=== PATIENT | female | born 1975 | race Caucasian/White ===

== ENCOUNTER → 2016-03-18 | Outpatient (CLI) | payer MEDICAID, MEDICARE ==
[~2016-03-18] MED LIST: AKWASOL OP; BACL10TA2 PO; FAMO1TAB25 PO; FLUT1LOT; GASTROGRAFIN SOLUTION 30ML (Q9963) As Ordered ONE; ISOVUE-370 76% 100ML VIAL (Q9967) As Ordered ONE; MEGE40TA PO; METH20TA29 PO; NORE0.353 PO; OXYC20TA2 PO; POLY33502 PO; RISP0.5T3 PO; SUMA100T2 PO; WELL100T PO; ZOLO100T PO
--- NOTE | 2016-03-18 14:51 | REP ---
Clinical: Abdominal pain with hematochezia. Technique: Axial contrast enhanced images from the lung bases to the pubic symphysis using oral and 100 ml Isovue 370 intravenous contrast material with precontrast and delayed images of the abdomen along with coronal and sagittal re-formations. Comparison: 05/30/2014. Findings: Lung bases clear. Visualized heart and pericardium normal. Liver, spleen, pancreas, gallbladder, bilateral adrenal glands and kidneys are normal. The enteric system is without obstruction or acute inflammatory process. Pelvis demonstrates normal bladder and age-appropriate uterus/adnexa. No pelvic fluid or ascites. No free air. No intraperitoneal or retroperitoneal adenopathy. Vasculature is normal. Surrounding musculoskeletal structures are intact. Impression: Normal pre and postcontrast CT of the abdomen and pelvis. Signed by Choco St MD 03/18/2016 02:43 P
== END ==
LOC: M RAD 12:36
PROVIDERS: ATTEND Internal Medicine Infectious Disease
DX: R10.30 Lower abdominal pain, unspecified (principal); K62.5 Hemorrhage of anus and rectum
CPT/HCPCS: 74178; Q9963; Q9967

== ENCOUNTER → 2016-04-01 | Outpatient (REF) | payer MEDICARE, MEDICAID ==
[~2016-04-01] MED LIST changes: -GASTROGRAFIN SOLUTION 30ML (Q9963) As Ordered ONE; -ISOVUE-370 76% 100ML VIAL (Q9967) As Ordered ONE
== END ==
LOC: M SFHCPLAZ 12:21
PROVIDERS: ATTEND Internal Medicine Infectious Disease
DX: B00.9 Herpesviral infection, unspecified (principal)
CPT/HCPCS: 36415; 81001; 87529; G0463

== ENCOUNTER → 2016-04-11 | Outpatient (REF) | payer MEDICARE, MEDICAID | LOC: M SFHCPLAZ 12:22 | PROVIDERS: ATTEND Internal Medicine Infectious Disease | DX: R30.0 Dysuria (principal) ==

== ENCOUNTER → 2016-05-08 | Outpatient (REF) | payer MEDICARE, MEDICAID ==
[~2016-05-08] MED LIST changes: +CLIN1CAP5 PO
== END ==
LOC: M SFHCPLAZ 16:41
PROVIDERS: ATTEND Internal Medicine Infectious Disease
DX: B00.9 Herpesviral infection, unspecified (principal)
CPT/HCPCS: 87070; 87077; 87186; 87205; 87529; G0463

== ENCOUNTER 2016-05-25 05:45 | Emergency (ER) | payer MEDICARE, MEDICAID ==
[~2016-05-25] VITALS: Ht 157.5 cm; Wt 90.7 kg
[~2016-05-25 05:45] MED LIST changes: -CLIN1CAP5 PO
[2016-05-25 07:17] LABS: BASO % 0.4 % (0.0-1.0); EOS # 0.2 K/mm3 (0.0-0.50); EOS % 2.9 % (0.0-3.0); LARGE UNSTAINED CELL # 0.1 K/mm3 (0.0-0.4); LARGE UNSTAINED CELL % 1.5 % (0.0-4.0); LYMPH # 2.7 K/mm3 (1.5-4.5); LYMPH % 33.1 % (24.0-44.0); MEAN CORPUSCULAR HEMOGLOBIN 29.4 pg (27.0-33.0); MEAN CORPUSCULAR HGB CONC 33.4 g/dl (32.0-36.5); MEAN CORPUSCULAR VOLUME 88.1 fl (80.0-96.0); MONO # 0.4 K/mm3 (0.0-0.8); MONO % 4.7 % (0.0-5.0); NEUTROPHILS # 4.5 K/mm3 (1.8-7.7); NEUTROPHILS % 57.4 % (36.0-66.0); PLATELET COUNT, AUTOMATED 277 k/mm3 (150-450); RED CELL DISTRIBUTION WIDTH 13.3 % (11.5-14.5); WHITE BLOOD COUNT 7.8 K/mm3 (4.0-10.0)
[2016-05-25 07:41] LABS: ANION GAP 10 MEQ/L (8-16); BLOOD UREA NITROGEN 9 MG/DL (7-18); CALCIUM LEVEL 8.3 MG/DL (8.5-10.1); CARBON DIOXIDE LEVEL 24 MEQ/L (21-32); CHLORIDE LEVEL 110 MEQ/L (98-107); CREATININE FOR GFR 1.04 MG/DL (0.55-1.02); GLOMERULAR FILTRATION RATE > 60.0 (>58); GLUCOSE, FASTING 100 MG/DL (70-105); SODIUM LEVEL 144 MEQ/L (136-145)
[2016-05-25 08:13] LABS: METHADONE URINE NEGATIVE (NEGATIVE)
[2016-05-25] MEDS ORDERED: POTASSIUM CHLORIDE 10 MEQ SR TABLET PO ONE ×2 (11:00→11:45)
[2016-05-25] MEDS ORDERED: CLIN1CAP5 PO (11:41)
[2016-05-25 11:47] LABS: T UPTAKE 33 % (30-39)
[2016-05-25 12:10] VITALS: BP 128/82
--- NOTE | 2016-05-25 20:29 | ECGEPIP ---
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
== END 2016-05-25 12:12 | disposition home or self-care (01) ==
LOC: M ED 08:23
DX: R00.2 Palpitations (principal); E87.6 Hypokalemia

== ENCOUNTER 2016-05-29 10:25 | Emergency (ER) | payer MEDICARE, MEDICAID ==
[~2016-05-29] VITALS: Ht 157.5 cm; Wt 91.6 kg
[~2016-05-29 10:25] MED LIST changes: +CLIN1CAP5 PO
--- NOTE | 2016-05-29 11:42 | REP ---
Left lower extremity Duplex Doppler venous ultrasound: Real time compression and duplex Doppler interrogation of the left lower extremity deep venous system is performed. The left common femoral, superficial femoral and popliteal veins are fully compressible with transducer pressure and demonstrate normal spontaneous and phasic flow, without evidence of deep venous thrombosis. Impression: No evidence of deep venous thrombosis of the left lower extremity femoral popliteal venous system. Signed by Musa Hawk MD 05/29/2016 11:33 A
[2016-05-29 13:00] VITALS: BP 140/73
== END 2016-05-29 13:00 | disposition home or self-care (01) ==
LOC: M ED 11:55
DX: M79.662 Pain in left lower leg (principal); J45.909 Unspecified asthma, uncomplicated; F32.9 Major depressive disorder, single episode, unspecified; Z88.6 Allergy status to analgesic agent; Z91.040 Latex allergy status; Z88.2 Allergy status to sulfonamides; Z79.899 Other long term (current) drug therapy

== ENCOUNTER 2016-05-29 21:12 | Emergency (ER) | payer MEDICARE, MEDICAID ==
[~2016-05-29] VITALS: Ht 157.5 cm; Wt 92.5 kg
[~2016-05-29 21:12] MED LIST changes: -MEGE40TA PO; +MEGE40TA18 PO
[2016-05-29] MEDS ORDERED: NS 1,000 ML IV SCH (22:26)
[2016-05-29] MEDS ORDERED: METOCLOPRAMIDE INJ 10MG/2ML VIAL (J2765) IV ONE (22:30)
--- NOTE | 2016-05-29 23:00 | REPUSA ---
CT of the head Clinical history: Headache. Technique: Multiple axial CT images were obtained through the head without administration of contrast . Findings: The ventricles and sulci are symmetric bilaterally. There is no evidence of acute hemorrhag e or infarct. There is no midline shift, mass effect, or extra-axial fluid collection. The osseous st ructures are unremarkable. The visualized paranasal sinuses and mastoid air cells are clear. Impression: Negative study.
[2016-05-29 23:02] LABS: BASO % 0.4 % (0.0-1.0); EOS # 0.2 K/mm3 (0.0-0.50); EOS % 2.1 % (0.0-3.0); LARGE UNSTAINED CELL # 0.1 K/mm3 (0.0-0.4); LARGE UNSTAINED CELL % 1.6 % (0.0-4.0); LYMPH # 3.4 K/mm3 (1.5-4.5); LYMPH % 36.5 % (24.0-44.0); MEAN CORPUSCULAR HEMOGLOBIN 29.5 pg (27.0-33.0); MEAN CORPUSCULAR HGB CONC 33.5 g/dl (32.0-36.5); MEAN CORPUSCULAR VOLUME 87.9 fl (80.0-96.0); MONO # 0.4 K/mm3 (0.0-0.8); MONO % 4.4 % (0.0-5.0); NEUTROPHILS # 4.8 K/mm3 (1.8-7.7); PLATELET COUNT, AUTOMATED 278 k/mm3 (150-450); RED CELL DISTRIBUTION WIDTH 13.2 % (11.5-14.5); WHITE BLOOD COUNT 8.8 K/mm3 (4.0-10.0)
[2016-05-29 23:32] LABS: ANION GAP 7 MEQ/L (8-16); BLOOD UREA NITROGEN 10 MG/DL (7-18); CALCIUM LEVEL 8.9 MG/DL (8.5-10.1); CARBON DIOXIDE LEVEL 27 MEQ/L (21-32); CHLORIDE LEVEL 107 MEQ/L (98-107); CREATININE FOR GFR 1.01 MG/DL (0.55-1.02); FREE T4 0.76 NG/DL (0.76-1.46); GLOMERULAR FILTRATION RATE > 60.0 (>58); GLUCOSE, FASTING 123 MG/DL (70-105); MAGNESIUM LEVEL 2.4 MG/DL (1.8-2.4); PHOSPHORUS LEVEL 2.9 MG/DL (2.5-4.9); POTASSIUM SERUM 3.5 MEQ/L (3.5-5.1); SODIUM LEVEL 141 MEQ/L (136-145)
[2016-05-30 00:22] VITALS: BP 111/61
== END 2016-05-30 00:40 | disposition home or self-care (01) ==
LOC: M ED 22:44
DX: R20.2 Paresthesia of skin (principal); M79.662 Pain in left lower leg; Z87.891 Personal history of nicotine dependence; L51.1 Stevens-Johnson syndrome; Z88.6 Allergy status to analgesic agent; Z88.2 Allergy status to sulfonamides; Z88.8 Allergy status to other drugs, medicaments and biological substances; Z79.899 Other long term (current) drug therapy
CPT/HCPCS: 36415; 70450; 80048; 83735; 84100; 84439; 84443; 85025; 93041; 93971; 94760; 96361; 96374; 99282; 99284; G0463; J2765

== ENCOUNTER 2016-06-02 18:17 | Emergency (ER) | payer MEDICARE, MEDICAID ==
[~2016-06-02] VITALS: Ht 157.5 cm; Wt 88.5 kg
[2016-06-02] MEDS ORDERED: ASPIRIN 81 MG CHEW TABLET PO ONE (19:30)
[2016-06-02] MEDS: NITROGLYCERIN 0.4 MG SUBL TABLET SL PRN ×3 (19:44→19:55)
[2016-06-02 19:55] VITALS: BP 120/57
[2016-06-03 01:11] VITALS: BP 93/59
--- NOTE | 2016-06-03 07:58 | REP ---
Clinical: Chest pain . Comparison: 01/29/2016 . Technique: PA and lateral. Findings: The mediastinum and cardiac silhouette are normal. The lung mir are clear and without acute consolidation, effusion, or pneumothorax. The skeletal structures are intact and normal. Impression: 1. No acute cardiopulmonary process. Signed by Choco St MD 06/03/2016 07:49 A
--- NOTE | 2016-06-03 10:26 | ECGEPIP ---
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
--- NOTE | 2016-06-03 10:33 | ECGEPIP ---
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
== END 2016-06-03 01:20 | disposition home or self-care (01) ==
LOC: M ED 19:39
DX: R07.89 Other chest pain (principal); Z79.899 Other long term (current) drug therapy; Z88.6 Allergy status to analgesic agent; Z91.040 Latex allergy status; Z88.2 Allergy status to sulfonamides

== ENCOUNTER → 2016-06-05 | Outpatient (REF) | payer MEDICARE, MEDICAID | LOC: M LAB REF 12:53 | PROVIDERS: ATTEND Nurse Practitioner Family | DX: L08.89 Other specified local infections of the skin and subcutaneous tissue (principal) ==

== ENCOUNTER 2016-07-02 22:49 | Emergency (ER) | payer MEDICARE, MEDICAID ==
[~2016-07-02] VITALS: Ht 157.5 cm; Wt 93.0 kg
[2016-07-03 07:37] VITALS: BP 126/88
--- NOTE | 2016-07-03 07:40 | REPUSA ---
CLINICAL HISTORY: Edema. COMMENTS: Real time sonography with duplex doppler of the right lower extremity was performed with attention to the major deep venous structures. Evaluation reveals the right common femoral, superficial femoral and popliteal veins to be completely compressible without intraluminal thrombus. There is normal spontaneous phasic flow and augmentation . The greater saphenous/common femoral vein junction is patent. No reflux was noted. IMPRESSION: No evidence of DVT in right lower extremity. Thank you for your kind referral of this patient.
[2016-07-03] MEDS ORDERED: CLIN1CAP5 PO ×2 (08:01→08:25)
[2016-07-03] MEDS: CLINDAMYCIN 150 MG CAP PO ONE (08:09)
== END 2016-07-03 08:25 | disposition home or self-care (01) ==
LOC: M ED 23:53
DX: M79.661 Pain in right lower leg (principal); J01.90 Acute sinusitis, unspecified; Z91.040 Latex allergy status; Z88.6 Allergy status to analgesic agent; Z88.2 Allergy status to sulfonamides; Z79.899 Other long term (current) drug therapy; J45.909 Unspecified asthma, uncomplicated; N30.10 Interstitial cystitis (chronic) without hematuria; F41.9 Anxiety disorder, unspecified; F32.9 Major depressive disorder, single episode, unspecified

== ENCOUNTER → 2016-07-16 | Outpatient (REF) | payer MEDICARE ==
[2016-07-16 14:05] LABS: BASO % 0.5 % (0.0-1.0); EOS # 0.2 K/mm3 (0.0-0.50); EOS % 2.1 % (0.0-3.0); LARGE UNSTAINED CELL # 0.2 K/mm3 (0.0-0.4); LARGE UNSTAINED CELL % 2.1 % (0.0-4.0); LYMPH # 2.7 K/mm3 (1.5-4.5); LYMPH % 31.4 % (24.0-44.0); MEAN CORPUSCULAR HGB CONC 33.9 g/dl (32.0-36.5); MEAN CORPUSCULAR VOLUME 88.5 fl (80.0-96.0); MONO # 0.4 K/mm3 (0.0-0.8); MONO % 4.8 % (0.0-5.0); NEUTROPHILS # 4.7 K/mm3 (1.8-7.7); NEUTROPHILS % 59.2 % (36.0-66.0); PLATELET COUNT, AUTOMATED 276 k/mm3 (150-450); RED CELL DISTRIBUTION WIDTH 13.5 % (11.5-14.5)
[2016-07-16 14:50] LABS: ERYTHROCYTE SEDIMENTATION RATE 8 mm/hr (0-20)
== END ==
LOC: M SFHCPLAZ 12:45
PROVIDERS: ATTEND Family Medicine
DX: J02.9 Acute pharyngitis, unspecified (principal)

== ENCOUNTER 2016-07-28 18:37 | Emergency (ER) | payer MEDICARE ==
[~2016-07-28] VITALS: Ht 157.5 cm; Wt 88.5 kg
[2016-07-28] MEDS ORDERED: CLIN1LOT (18:59)
[2016-07-28] MEDS ORDERED: RISP1TAB3 (18:59)
[2016-07-28] MEDS ORDERED: BUPR300T34 (18:59)
[2016-07-28] MEDS ORDERED: SERT-138 (18:59)
[2016-07-28] MEDS ORDERED: CYCLOBENZAPRINE 10 MG TAB PO ONE (21:45)
[2016-07-28] MEDS ORDERED: SOMA350T PO (21:46)
[2016-07-28 21:57] VITALS: BP 129/79
== END 2016-07-28 21:59 | disposition home or self-care (01) ==
LOC: M ED 20:07
DX: M62.838 Other muscle spasm (principal); L51.1 Stevens-Johnson syndrome; Z79.899 Other long term (current) drug therapy; Z88.2 Allergy status to sulfonamides; Z88.6 Allergy status to analgesic agent; Z91.040 Latex allergy status
CPT/HCPCS: 99282; G0463

== ENCOUNTER → 2016-07-30 | Outpatient (REF) | payer MEDICARE, MEDICAID ==
[~2016-07-30] MED LIST changes: +ALBU20IN; +ALBU83IN INH; +ASTE0.15; +BUPR300T34; +CLIN150C14 PO; -CLIN1CAP5 PO; +CLIN1LOT; +DIVA500T3 PO; +FLOV50AE PO; +FLUT1SPR2; +IRON65TA PO; +LIDO1PAD EXT; +LINZ290C PO; +MEGE20TA3 PO; +MIRA3350 PO; +MONT10TA2 PO; +MUPI2OI EXT; +PROM12.55 PO; +RELP20TA PO; +RISP1TAB3 PO; +SERT-138; +SOMA350T PO; +VALT1TAB PO; +ZITHTAB PO
== END ==
LOC: M SFHCPLAZ 13:12
PROVIDERS: ATTEND Family Medicine
DX: Z13.1 Encounter for screening for diabetes mellitus (principal); Z79.899 Other long term (current) drug therapy
CPT/HCPCS: 36415; 83036; G0463

== ENCOUNTER 2016-07-31 16:11 | Emergency (ER) | payer MEDICAID, MEDICARE ==
[~2016-07-31] VITALS: Ht 157.5 cm; Wt 90.7 kg
[~2016-07-31 16:11] MED LIST changes: -ALBU20IN; -ALBU83IN INH; -ASTE0.15; -CLIN150C14 PO; +CLIN1CAP5 PO; -DIVA500T3 PO; -FLOV50AE PO; -FLUT1SPR2; -IRON65TA PO; -LIDO1PAD EXT; -LINZ290C PO; -MEGE20TA3 PO; -MIRA3350 PO; -MONT10TA2 PO; -MUPI2OI EXT; -PROM12.55 PO; -RELP20TA PO; -VALT1TAB PO; -ZITHTAB PO
[2016-07-31] MEDS ORDERED: VALT1TAB PO (16:21)
[2016-07-31] MEDS ORDERED: MEGE20TA PO (16:23)
[2016-07-31] MEDS ORDERED: METOCLOPRAMIDE INJ 10MG/2ML VIAL (J2765) IV ONE (17:30)
[2016-07-31] MEDS ORDERED: NS 1,000 ML IV ONE (17:30)
--- NOTE | 2016-07-31 17:41 | REP ---
Clinical: Headaches . Comparison: 05/29/2016 . Findings: The ventricles, sulci, and cisterns are normal in position and appearance. Hawk-white differentiation is maintained. No acute intracranial hemorrhage, mass/mass effect, pathology or trauma/injury. No evidence for acute infarction. No extra-axial fluid collection. Calvarium is intact. Paranasal sinuses and mastoid air cells are clear. Impression: Normal noncontrast head CT. No evidence for acute intracranial pathology or trauma/injury. Signed by Choco St MD 07/31/2016 05:32 P
[2016-07-31] MEDS ORDERED: ZITHTAB PO (17:54)
[2016-07-31] MEDS ORDERED: AZITHROMYCIN 250 MG TAB PO ONE (18:00)
[2016-07-31 18:10] VITALS: BP 113/65
[2016-08-25] MEDS ORDERED: OXYC20TA2 PO (09:27)
[2016-08-25] MEDS ORDERED: MUPI2OI EXT (09:27)
[2016-08-25] MEDS ORDERED: MONT10TA2 PO (09:27)
[2016-08-25] MEDS ORDERED: LINZ290C PO (09:27)
[2016-08-25] MEDS ORDERED: ASTE0.15 (09:27)
[2016-08-25] MEDS ORDERED: RELP20TA PO (09:27)
[2016-08-25] MEDS ORDERED: DIVA500T3 PO (09:27)
[2016-08-25] MEDS ORDERED: MIRA3350 PO (09:27)
[2016-08-25] MEDS ORDERED: MEGE40TA18 PO (09:27)
[2016-08-25] MEDS ORDERED: LIDO1PAD EXT (09:27)
[2016-08-25] MEDS ORDERED: ALBU20IN (09:27)
[2016-08-25] MEDS ORDERED: IRON65TA PO (09:27)
[2016-08-25] MEDS ORDERED: METH20TA29 PO (09:27)
[2016-08-25] MEDS ORDERED: PROM125TA PO (09:27)
[2016-08-25] MEDS ORDERED: FLUT1SPR2 (09:27)
[2016-08-25] MEDS ORDERED: ALBU83IN INH (09:27)
[2016-08-25] MEDS ORDERED: FLOV50AE PO (09:27)
== END 2016-07-31 18:11 | disposition home or self-care (01) ==
LOC: M ED 17:08
DX: J01.90 Acute sinusitis, unspecified (principal); Z87.891 Personal history of nicotine dependence; Z79.899 Other long term (current) drug therapy; Z88.0 Allergy status to penicillin; Z88.6 Allergy status to analgesic agent; Z91.040 Latex allergy status; Z88.2 Allergy status to sulfonamides; Z88.8 Allergy status to other drugs, medicaments and biological substances
CPT/HCPCS: 70450; 96361; 96374; 99283; G0463; J2765

== ENCOUNTER → 2016-08-29 | Outpatient (CLI) | payer MEDICARE ==
[~2016-08-29] VITALS: Ht 157.5 cm; Wt 90.7 kg
[~2016-08-29] MED LIST changes: +ALBU20IN; +ALBU83IN INH; +ASTE0.15; +DIVA500T3 PO; +FLOV50AE PO; +FLUT1SPR2; +IRON65TA PO; +LIDO1PAD EXT; +LIDOCAINE 2% INJ 100 MG/5 ML SDV (FOR ANES.) As Ordered ONE; +LINZ290C PO; +MEGE20TA PO; +MIRA3350 PO; +MONT10TA2 PO; +MUPI2OI EXT; +NS 1,000 ML IV ONE; +PROM125TA PO; +PROPOFOL 200 MG/20 ML VIAL As Ordered ONE; +RELP20TA PO; +VALT1TAB PO; +ZITHTAB PO; +fentaNYL 100 MCG/2 ML INJECTION (J3010) As Ordered ONE
--- NOTE | 2016-08-29 15:01 | ROOR ---
Patient Name: Elen Courtney Procedure Date: 08/29/2016 2:47 PM Date of : 1975 Age: 41 Room: [facility] Gender: Female Note Status: Finalized Procedure: Upper GI endoscopy Indications: Dyspepsia, Heartburn Providers: Naga JANE MD Referring MD: Cathy Calderon [facility] Requesting Provider: Medicines: Monitored Anesthesia Care Complications: No immediate complications. Procedure: Pre-Anesthesia Assessment: - The heart rate, respiratory rate, oxygen saturations, blood pressure, adequacy of pulmonary ventilation, and response to care were monitored throughout the procedure. The Endoscope was introduced through the mouth, and advanced to the second part of duodenum. The upper GI endoscopy was accomplished without difficulty. The patient tolerated the procedure well. Findings: Esophagitis was found in the lower third of the esophagus. Biopsies were taken with a cold forceps for histology. There were esophageal mucosal changes suspicious for short-segment Smith's esophagus present in the lower third of the esophagus. The maximum longitudinal extent of these mucosal changes was 2 cm in length. Mucosa was biopsied with a cold forceps for histology randomly. Mild inflammation was found in the gastric antrum. Biopsies were taken with a cold forceps for histology. The examined duodenum was normal. Impression: - Esophagitis and esophageal mucosal changes suspicious for short-segment Smith's esophagus. Biopsied. - Mild Gastritis. Biopsied. - Normal examined duodenum. Recommendation: - Use Prilosec (omeprazole) 40 mg PO BID. - Telephone endoscopist for pathology results in 2 weeks. - (the script was sent to your pharmacy on file) Naga Jane MD Naga JANE MD 08/29/2016 3:01:04 PM This report has been signed electronically. Number of Addenda: 0 Note Initiated On: 08/29/2016 2:47 PM Estimated Blood Loss: Estimated blood loss: none.
--- NOTE | 2016-08-29 15:19 | ROOR ---
Patient Name: Elen Courtney Procedure Date: 08/29/2016 2:48 PM Date of : 1975 Age: 41 Room: [id number] Gender: Female Note Status: Finalized Procedure: Colonoscopy Indications: Constipation Providers: Naga JANE MD Referring MD: Cathy Calderon [facility] Requesting Provider: Medicines: Monitored Anesthesia Care Complications: No immediate complications. Procedure: Pre-Anesthesia Assessment: - The heart rate, respiratory rate, oxygen saturations, blood pressure, adequacy of pulmonary ventilation, and response to care were monitored throughout the procedure. The Colonoscope was introduced through the anus and advanced to 5 cm into the ileum. The colonoscopy was performed without difficulty. The patient tolerated the procedure well. The quality of the bowel preparation was poor. Findings: The perianal and digital rectal examinations were normal. The colon (entire examined portion) appeared normal. The terminal ileum appeared normal. Impression: - Preparation of the colon was poor, required large lavage for adequate visualisation. - The entire examined colon is normal. - The examined portion of the ileum was normal. - No specimens collected. Recommendation: - stop Yandel, start Amitiza. - (the script was sent to your pharmacy on file) Naga Jane MD Naga JANE MD 08/29/2016 3:19:22 PM This report has been signed electronically. Number of Addenda: 0 Note Initiated On: 08/29/2016 2:48 PM Estimated Blood Loss: Estimated blood loss: none.
[2016-08-29 15:44] VITALS: BP 139/83
== END | disposition home or self-care (01) ==
LOC: M OPP 12:40
PROVIDERS: ATTEND Internal Medicine Gastroenterology
DX: K59.00 Constipation, unspecified (principal); K30 Functional dyspepsia; K29.70 Gastritis, unspecified, without bleeding; K20.9 Esophagitis, unspecified; K22.8 Other specified diseases of esophagus; K21.9 Gastro-esophageal reflux disease without esophagitis; R01.1 Cardiac murmur, unspecified; R00.2 Palpitations; R07.89 Other chest pain; I10 Essential (primary) hypertension; R23.3 Spontaneous ecchymoses; M19.90 Unspecified osteoarthritis, unspecified site; M54.2 Cervicalgia; B00.9 Herpesviral infection, unspecified; F41.9 Anxiety disorder, unspecified; F32.9 Major depressive disorder, single episode, unspecified; G43.909 Migraine, unspecified, not intractable, without status migrainosus; L51.1 Stevens-Johnson syndrome; J45.909 Unspecified asthma, uncomplicated; G47.30 Sleep apnea, unspecified; R06.83 Snoring; R06.02 Shortness of breath; R32 Unspecified urinary incontinence; N13.5 Crossing vessel and stricture of ureter without hydronephrosis; Z87.891 Personal history of nicotine dependence; Z88.0 Allergy status to penicillin; Z88.8 Allergy status to other drugs, medicaments and biological substances; Z91.040 Latex allergy status; Z88.2 Allergy status to sulfonamides; Z79.899 Other long term (current) drug therapy
CPT/HCPCS: 43239; 45378; 88305; J3010

== ENCOUNTER → 2017-01-12 | Outpatient (REF) | payer MEDICARE ==
[~2017-01-12] MED LIST changes: +CLIN150C14 PO; -CLIN1CAP5 PO; -LIDOCAINE 2% INJ 100 MG/5 ML SDV (FOR ANES.) As Ordered ONE; -MEGE20TA PO; +MEGE20TA3 PO; -NS 1,000 ML IV ONE; +PROM12.55 PO; -PROM125TA PO; -PROPOFOL 200 MG/20 ML VIAL As Ordered ONE; -fentaNYL 100 MCG/2 ML INJECTION (J3010) As Ordered ONE
[2017-01-12 16:09] LABS: BASO % 0.4 % (0.0-1.0); EOS # 0.1 10^3/uL (0.0-0.50); EOS % 0.7 % (0.0-3.0); IMMATURE GRANULOCYTE % 0.1 % (0-0); LYMPH # 3.6 10^3/uL (1.5-4.5); LYMPH % 44.5 % (24.0-44.0); MEAN CORPUSCULAR HEMOGLOBIN 30.7 pg (27.0-33.0); MEAN CORPUSCULAR HGB CONC 34.2 g/dl (32.0-36.5); MEAN CORPUSCULAR VOLUME 89.8 fl (80.0-96.0); MONO # 0.5 10^3/uL (0.0-0.8); MONO % 6.1 % (0.0-5.0); NEUTROPHILS # 3.9 10^3/uL (1.8-7.7); NEUTROPHILS % 48.2 % (36.0-66.0); PLATELET COUNT, AUTOMATED 355 10^3/uL (150-450); RED CELL DISTRIBUTION WIDTH 13.1 % (11.5-14.5)
[2017-01-12 16:33] LABS: IMMUNOGLOBULIN G 919 MG/DL (681-1648); IMMUNOGLOBULIN M 113 MG/DL (40-230)
[2017-01-12 17:15] LABS: ERYTHROCYTE SEDIMENTATION RATE 4 mm/hr (0-20)
[2017-01-16 08:07] LABS: IgG SERUM (part of Subclasses) 838 mg/dL (700-1600); IgG Subclass 1 445 mg/dL (248-810); IgG Subclass 2 286 mg/dL (130-555); IgG Subclass 3 33 mg/dL (15-102); IgG Subclass 4 49 mg/dL (2-96)
== END ==
LOC: M SFHCPLAZ 13:04
PROVIDERS: ATTEND Internal Medicine Infectious Disease
DX: D80.3 Selective deficiency of immunoglobulin G [IgG] subclasses (principal); B00.9 Herpesviral infection, unspecified
CPT/HCPCS: 36415; 82784; 82787; 85025; 85652; 86140; G0463

== ENCOUNTER → 2017-01-26 | Outpatient (REF) | payer MEDICARE ==
[2017-01-26 16:06] LABS: CALCIUM LEVEL 9.6 MG/DL (8.5-10.1); CREATININE FOR GFR 1.08 MG/DL (0.55-1.02); GLOMERULAR FILTRATION RATE 59.5 (>58); POTASSIUM SERUM 2.9 MEQ/L (3.5-5.1)
== END ==
LOC: M SFHCPLAZ 12:48
PROVIDERS: ATTEND Family Medicine
DX: I10 Essential (primary) hypertension (principal)

== ENCOUNTER → 2017-01-30 | Outpatient (CLI) | payer MEDICARE, MEDICAID ==
[2017-01-30 11:11] LABS: ANION GAP 7 MEQ/L (8-16); BLOOD UREA NITROGEN 12 MG/DL (7-18); CALCIUM LEVEL 9.1 MG/DL (8.5-10.1); CARBON DIOXIDE LEVEL 26 MEQ/L (21-32); CHLORIDE LEVEL 106 MEQ/L (98-107); CREATININE FOR GFR 1.02 MG/DL (0.55-1.02); GLOMERULAR FILTRATION RATE > 60.0 (>58); GLUCOSE, FASTING 88 MG/DL (70-105); POTASSIUM SERUM 4.3 MEQ/L (3.5-5.1); SODIUM LEVEL 139 MEQ/L (136-145)
== END ==
LOC: M LAB 10:00
PROVIDERS: ATTEND Family Medicine
DX: E87.6 Hypokalemia (principal)

== ENCOUNTER → 2017-04-23 | Outpatient (CLI) | payer MEDICARE, MEDICAID | LOC: M RAD 13:01 | DX: H93.A3 Pulsatile tinnitus, bilateral (principal) | CPT/HCPCS: 70480 ==

== ENCOUNTER → 2017-08-06 | Outpatient (REF) | payer MEDICARE, MEDICAID | LOC: M SFHCPLAZ 15:20 | DX: F45.8 Other somatoform disorders (principal); N32.9 Bladder disorder, unspecified; Z79.899 Other long term (current) drug therapy | CPT/HCPCS: 84443 ==

== ENCOUNTER 2017-09-03 10:40 | Day surgery (SDC) | payer MEDICARE, MEDICAID ==
[2017-09-03] MEDS: NS 1,000 ML IV (11:00)
[2017-09-03] MEDS ORDERED: PROPOFOL 200 MG/20 ML VIAL As Ordered ×4 (12:35)
[2017-09-03] MEDS ORDERED: LIDOCAINE 2% INJ 100 MG/5 ML SDV (FOR ANES.) As Ordered (12:35)
== END 2017-09-03 13:11 | disposition home or self-care (01) ==
LOC: M OPP 10:40
DX: D12.2 Benign neoplasm of ascending colon (principal); K64.8 Other hemorrhoids; K58.1 Irritable bowel syndrome with constipation; K59.00 Constipation, unspecified; I10 Essential (primary) hypertension; R23.3 Spontaneous ecchymoses; J45.909 Unspecified asthma, uncomplicated; R06.83 Snoring; F32.9 Major depressive disorder, single episode, unspecified; M32.9 Systemic lupus erythematosus, unspecified; L51.1 Stevens-Johnson syndrome; Z79.82 Long term (current) use of aspirin; Z79.899 Other long term (current) drug therapy; Z88.8 Allergy status to other drugs, medicaments and biological substances
CPT/HCPCS: 45385

== ENCOUNTER → 2017-10-01 | Outpatient (REF) | payer MEDICARE ==
[2017-10-01 13:36] LABS: BACTERIA, URINE AUTO 1+ (NEGATIVE); RBC, URINE AUTO 1 /HPF (0-3); SQUAMOUS EPITHELIAL CELL UR AU 0 /HPF (0-6); WBC, URINE AUTO 1 /HPF (0-3)
[2017-10-03 00:08] LABS: Candida species Negative (Negative); Gardnerella vaginalis Negative (Negative); Trichamonas vaginalis Negative (Negative)
== END ==
LOC: M SMT 13:05
DX: N76.1 Subacute and chronic vaginitis (principal)
CPT/HCPCS: 81015

== ENCOUNTER → 2017-11-12 | Outpatient (REF) | payer MEDICARE ==
[2017-11-12 13:55] LABS: BASO % 0.4 % (0.0-1.0); EOS % 0.6 % (0.0-3.0); HEMATOCRIT 42.5 % (36.0-47.0); HEMOGLOBIN 14.2 g/dl (12.0-15.5); IMMATURE GRANULOCYTE % 0.3 % (0-3.0); MEAN CORPUSCULAR HEMOGLOBIN 31.1 pg (27.0-33.0); MEAN CORPUSCULAR HGB CONC 33.4 g/dl (32.0-36.5); MEAN CORPUSCULAR VOLUME 93.2 fl (80.0-96.0); MONO # 0.4 10^3/uL (0.0-0.8); MONO % 5.2 % (0.0-5.0); NEUTROPHILS # 3.8 10^3/uL (1.8-7.7); NEUTROPHILS % 52.5 % (36.0-66.0); PLATELET COUNT, AUTOMATED 202 10^3/uL (150-450); RED BLOOD COUNT 4.56 10^6/uL (4.00-5.40); RED CELL DISTRIBUTION WIDTH 13.3 % (11.5-14.5); WHITE BLOOD COUNT 7.3 10^3/uL (4.0-10.0)
[2017-11-12 14:07] LABS: APPEARANCE, URINE CLEAR (CLEAR); BACTERIA, URINE AUTO NEGATIVE (NEGATIVE); BILIRUBIN, URINE AUTO NEGATIVE (NEGATIVE); BLOOD, URINE BLOOD NEGATIVE (NEGATIVE); COLOR, URINE YELLOW (YELLOW); GLUCOSE, URINE (UA) AUTO NEGATIVE (NEGATIVE); KETONE, URINE AUTO NEGATIVE (NEGATIVE); LEUKOCYTE ESTERASE, URINE AUTO NEGATIVE (NEGATIVE); NITRITE, URINE AUTO NEGATIVE (NEGATIVE); PROTEIN, URINE AUTO NEGATIVE (NEGATIVE); RBC, URINE AUTO 0 /HPF (0-3); SPECIFIC GRAVITY URINE AUTO 1.006 (1.002-1.035); SQUAMOUS EPITHELIAL CELL UR AU 0 /HPF (0-6); UROBILINOGEN, URINE AUTO 0.2 mg/dL (0.0-2.0); WBC, URINE AUTO 0 /HPF (0-3)
[2017-11-12 14:13] LABS: ERYTHROCYTE SEDIMENTATION RATE 2 mm/hr (0-20)
[2017-11-12 15:04] LABS: ALBUMIN 3.9 GM/DL (3.2-5.2); ALBUMIN/GLOBULIN RATIO 1.15 (1.00-1.93); ALKALINE PHOSPHATASE 65 U/L (45-117); ALT/SGPT 58 U/L (12-78); ANION GAP 7 MEQ/L (8-16); AST/SGOT 27 U/L (7-37); BILIRUBIN,TOTAL 0.4 MG/DL (0.2-1.0); BLOOD UREA NITROGEN 9 MG/DL (7-18); C REACTIVE PROTEIN QUANTITATIV < 0.30 MG/DL (0.00-0.30); CALCIUM LEVEL 8.8 MG/DL (8.5-10.1); CARBON DIOXIDE LEVEL 28 MEQ/L (21-32); CHLORIDE LEVEL 108 MEQ/L (98-107); CREATININE FOR GFR 0.97 MG/DL (0.55-1.30); GLOMERULAR FILTRATION RATE > 60.0 (>58); GLUCOSE, FASTING 90 MG/DL (70-100); POTASSIUM SERUM 4.3 MEQ/L (3.5-5.1); SODIUM LEVEL 143 MEQ/L (136-145); TOTAL PROTEIN 7.3 GM/DL (6.4-8.2)
[2017-11-15 00:07] LABS: QUANTIFERON GOLD TB Negative (Negative); TB Test (QFT) Antigen 0.03 IU/mL (.); TB Test (QFT) Mitogen 7.17 IU/mL (.); TB Test (QFT) Nil 0.03 IU/mL (.)
[2017-11-17 00:08] LABS: ASPERGILLUS FLAVUS ABY Negative (Neg:<1:1); ASPERGILLUS FUMIGATUS ABY Negative (Neg:<1:1); ASPERGILLUS NIGER ABY Negative (Neg:<1:1); CRYPTOCOCCUS ANTIGEN SER Negative (Negative); HISTOPLASMA GAL'MANNAN AG UR <0.5 (<0.5 ng/mL)
[2017-11-17 00:08] LABS: HISTOPLASMOSIS ANTIBODY Negative (Neg:<1:1)
== END ==
LOC: M LABDRAW1 13:15
DX: R06.02 Shortness of breath (principal); M32.9 Systemic lupus erythematosus, unspecified; N32.81 Overactive bladder; R21 Rash and other nonspecific skin eruption; B00.9 Herpesviral infection, unspecified; Z79.899 Other long term (current) drug therapy
CPT/HCPCS: 80053

== ENCOUNTER → 2018-02-04 | Outpatient (REF) | payer MEDICARE ==
[2018-02-07 00:06] LABS: O+P EXAM Final report (.)
== END ==
LOC: M SFHCPLAZ 12:10
DX: R19.7 Diarrhea, unspecified (principal)
CPT/HCPCS: 87177

== ENCOUNTER → 2018-02-24 | Outpatient (REF) | payer MEDICARE ==
[2018-02-24 12:35] LABS: BASO % 0.5 % (0.0-1.0); EOS # 0.1 10^3/uL (0.0-0.50); EOS % 1.6 % (0.0-3.0); HEMATOCRIT 39.5 % (36.0-47.0); HEMOGLOBIN 13.3 g/dl (12.0-15.5); IMMATURE GRANULOCYTE % 0.3 % (0-3.0); LYMPH # 2.2 10^3/uL (1.5-4.5); LYMPH % 35.6 % (24.0-44.0); MEAN CORPUSCULAR HGB CONC 33.7 g/dl (32.0-36.5); MEAN CORPUSCULAR VOLUME 92.1 fl (80.0-96.0); MONO # 0.5 10^3/uL (0.0-0.8); MONO % 7.2 % (0.0-5.0); NEUTROPHILS # 3.4 10^3/uL (1.8-7.7); NEUTROPHILS % 54.8 % (36.0-66.0); PLATELET COUNT, AUTOMATED 289 10^3/uL (150-450); RED BLOOD COUNT 4.29 10^6/uL (4.00-5.40); RED CELL DISTRIBUTION WIDTH 12.3 % (11.5-14.5); WHITE BLOOD COUNT 6.3 10^3/uL (4.0-10.0)
[2018-02-24 12:51] LABS: APPEARANCE, URINE CLEAR (CLEAR); BACTERIA, URINE AUTO 1+ (NEGATIVE); BILIRUBIN, URINE AUTO NEGATIVE (NEGATIVE); BLOOD, URINE BLOOD NEGATIVE (NEGATIVE); COLOR, URINE COLORLESS (YELLOW); GLUCOSE, URINE (UA) AUTO NEGATIVE (NEGATIVE); KETONE, URINE AUTO NEGATIVE (NEGATIVE); LEUKOCYTE ESTERASE, URINE AUTO NEGATIVE (NEGATIVE); NITRITE, URINE AUTO NEGATIVE (NEGATIVE); PROTEIN, URINE AUTO NEGATIVE (NEGATIVE); RBC, URINE AUTO 0 /HPF (0-3); SPECIFIC GRAVITY URINE AUTO 1.002 (1.002-1.035); SQUAMOUS EPITHELIAL CELL UR AU 2 /HPF (0-6); UROBILINOGEN, URINE AUTO 0.2 mg/dL (0.0-2.0); WBC, URINE AUTO 1 /HPF (0-3)
[2018-02-24 12:58] LABS: ERYTHROCYTE SEDIMENTATION RATE 3 mm/hr (0-20)
[2018-02-24 13:17] LABS: CREATININE,RANDOM URINE 16.1 MG/DL; TOTAL PROTEIN,RANDOM URINE < 5.0 MG/DL (0.0-12.0)
[2018-02-24 13:18] LABS: ALBUMIN 4.1 GM/DL (3.2-5.2); ALBUMIN/GLOBULIN RATIO 1.41 (1.00-1.93); ALKALINE PHOSPHATASE 55 U/L (45-117); ALT/SGPT 57 U/L (12-78); ANION GAP 6 MEQ/L (8-16); AST/SGOT 37 U/L (7-37); BILIRUBIN,TOTAL 0.4 MG/DL (0.2-1.0); BLOOD UREA NITROGEN 11 MG/DL (7-18); C REACTIVE PROTEIN QUANTITATIV < 0.30 MG/DL (0.00-0.30); CALCIUM LEVEL 9.1 MG/DL (8.5-10.1); CARBON DIOXIDE LEVEL 29 MEQ/L (21-32); CHLORIDE LEVEL 103 MEQ/L (98-107); COMPLEMENT C3 114 MG/DL (90-180); COMPLEMENT C4 20 MG/DL (10-40); CREATININE FOR GFR 0.96 MG/DL (0.55-1.30); GLOMERULAR FILTRATION RATE > 60.0 (>58); POTASSIUM SERUM 4.5 MEQ/L (3.5-5.1); SODIUM LEVEL 138 MEQ/L (136-145)
[2018-02-24 13:19] LABS: GLUCOSE, FASTING 101 MG/DL (70-100)
[2018-02-26 00:40] LABS: ANA (HEP2) Negative (.); ANTI DOUBLE STRAND-DNA AB <1 IU/mL (0-9); ANTI SCLERODERMA ANTIBODIES <0.2 AI (0.0-0.9); RNP ANTIBODY < 0.2 AI (0.0-0.9); SMITHS ANTIBODY < 0.2 AI (0.0-0.9); SSA SJOGRENS A <0.2 AI (0.0-0.9); SSB SJOGRENS B <0.2 AI (0.0-0.9)
== END ==
LOC: M SFHCPLAZ 10:22
DX: M32.9 Systemic lupus erythematosus, unspecified (principal)
CPT/HCPCS: 80053

== ENCOUNTER → 2018-03-17 | Outpatient (REF) | payer MEDICARE ==
[~2018-03-17] MED LIST changes: +ASPI1TAB PO; +CIPR-249 PO; -DIVA500T3 PO; +DIVA500T94 PO; +FLUO40CA PO; +HYDR200T3 PO; +OMEP40CA2 PO; +POLY1POW38 PO; -POLY33502 PO; +POTA75TA2 PO; +PRED20TA PO; -PROM12.55 PO; +PROM12.56 PO; +PROP80CA PO; +PYRI1TAB5 PO; +SKEL800T97 PO; +VITA100067 PO; +VITA25TA3 PO
== END ==
LOC: M SFHCPLAZ 11:09
PROVIDERS: ATTEND Dermatology
DX: L73.9 Follicular disorder, unspecified (principal)

== ENCOUNTER → 2018-03-20 | Outpatient (REF) | payer MEDICARE ==
[~2018-03-20] MED LIST changes: -CIPR-249 PO; -PRED20TA PO; -PYRI1TAB5 PO; -SKEL800T97 PO
[2018-03-25 08:17] LABS: DOPAMINE 231 ug/24 hr (0-510); DOPAMINE TOTAL URINE 30 ug/L (Undefined); EPINEPHRINE 8 ug/24 hr (0-20); EPINEPHRINE TOTAL URINE 1 ug/L (Undefined); NOREPINEPHRINE 62 ug/24 hr (0-135); NOREPINEPHRINE TOTAL URINE 8 ug/L (Undefined)
== END ==
LOC: M LAB REF 07:41
PROVIDERS: ATTEND Internal Medicine Infectious Disease
DX: I10 Essential (primary) hypertension (principal)

== ENCOUNTER 2018-04-07 07:05 | Emergency (ER) | payer MEDICARE ==
[~2018-04-07] VITALS: Ht 157.5 cm; Wt 86.8 kg
[2018-04-07 08:00] LABS: HEMATOCRIT 39.9 % (36.0-47.0); HEMOGLOBIN 13.5 g/dl (12.0-15.5); MEAN CORPUSCULAR HEMOGLOBIN 30.3 pg (27.0-33.0); MEAN CORPUSCULAR HGB CONC 33.8 g/dl (32.0-36.5); MEAN CORPUSCULAR VOLUME 89.7 fl (80.0-96.0); PLATELET COUNT, AUTOMATED 340 10^3/uL (150-450); RED BLOOD COUNT 4.45 10^6/uL (4.00-5.40); WHITE BLOOD COUNT 12.7 10^3/uL (4.0-10.0)
[2018-04-07 08:08] LABS: BILIRUBIN, URINE MANUAL NEGATIVE (NEGATIVE); GLUCOSE, URINE (UA) MANUAL NEGATIVE (NEGATIVE); KETONE, URINE MANUAL OBSCURED mg/dL (NEGATIVE); UROBILINOGEN, URINE MANUAL NORMAL (NORMAL)
[2018-04-07 08:09] LABS: RBC, URINE TNTC /hpf (0-3); SQUAMOUS EPITHELIAL CELL URINE SMALL AMOUNT /hpf (SMALL AMT)
[2018-04-07 08:10] LABS: BACTERIA, URINE SMALL AMOUNT; HYALINE CAST, URINE NONE SEEN /lpf (0-1)
[2018-04-07 08:18] LABS: BLOOD UREA NITROGEN 13 MG/DL (7-18); CALCIUM LEVEL 8.6 MG/DL (8.5-10.1); CARBON DIOXIDE LEVEL 27 MEQ/L (21-32); CHLORIDE LEVEL 105 MEQ/L (98-107); CREATININE FOR GFR 1.04 MG/DL (0.55-1.30); GLOMERULAR FILTRATION RATE > 60.0 (>58); GLUCOSE, FASTING 107 MG/DL (70-100); POTASSIUM SERUM 4.1 MEQ/L (3.5-5.1); SODIUM LEVEL 139 MEQ/L (136-145)
[2018-04-07] MEDS ORDERED: CIPR-249 PO (08:28)
[2018-04-07] MEDS ORDERED: PYRI1TAB5 PO (08:28)
--- NOTE | 2018-04-07 08:28 | REP ---
Clinical: Right flank pain with dysuria and hematuria. Technique: Axial noncontrast images from the lung bases to the pubic symphysis with coronal and sagittal re-formations. Comparison: 03/18/2016. Findings: Urinary tract system is normal in appearance. No hydroureteronephrosis, nephroureterolithiasis, perinephric stranding, or obstructing ureteral calculi identified. Liver, spleen, pancreas, gallbladder, bilateral adrenal glands are normal for noncontrast evaluation. The enteric system is without obstruction or acute inflammatory process. Mild fecal stasis cannot be excluded and should be correlated with physical examination. Pelvis demonstrates normal bladder and age-appropriate uterus/adnexa. No pelvic fluid or ascites. No free air. No adenopathy. 1 cm fat containing periumbilical hernia noted. Abdominal aorta without aneurysm. Musculoskeletal structures without focal osseous abnormality. Lung bases are clear. Impression: 1. Normal appearance to the urinary tract system. 2. Mild fecal stasis. 3. 1 cm fat containing periumbilical hernia. 4. No acute abdominopelvic pathology appreciated. Specifically, no ascites, focal inflammatory stranding, or adenopathy. Electronically Signed by Choco St MD 04/07/2018 08:20 A
[2018-04-07 08:52] VITALS: BP 125/69
[2018-04-08] MEDS ORDERED: SKEL800T97 PO (20:32)
[2018-04-08] MEDS ORDERED: PRED20TA PO (20:32)
== END 2018-04-07 08:52 | disposition home or self-care (01) ==
LOC: M ED 07:05
DX: N30.01 Acute cystitis with hematuria (principal); J45.909 Unspecified asthma, uncomplicated; F41.9 Anxiety disorder, unspecified; F32.9 Major depressive disorder, single episode, unspecified; K21.9 Gastro-esophageal reflux disease without esophagitis; N30.10 Interstitial cystitis (chronic) without hematuria; Z88.1 Allergy status to other antibiotic agents; Z88.8 Allergy status to other drugs, medicaments and biological substances; Z88.3 Allergy status to other anti-infective agents; Z88.2 Allergy status to sulfonamides; Z79.899 Other long term (current) drug therapy; Z79.82 Long term (current) use of aspirin

== ENCOUNTER 2018-04-08 17:16 | Emergency (ER) | payer MEDICARE ==
[~2018-04-08] VITALS: Ht 157.5 cm; Wt 86.8 kg
[~2018-04-08 17:16] MED LIST changes: +CIPR-249 PO; +PYRI1TAB5 PO
[2018-04-08] MEDS ORDERED: methylPREDNISolone INJ 125 MG/2 ML VIAL (J2930) IV ONE (18:45)
[2018-04-08 19:11] LABS: BASO % 0.2 % (0.0-1.0); EOS # 0.2 10^3/uL (0.0-0.50); EOS % 1.1 % (0.0-3.0); HEMATOCRIT 38.9 % (36.0-47.0); HEMOGLOBIN 13.2 g/dl (12.0-15.5); LYMPH # 2.2 10^3/uL (1.5-4.5); MEAN CORPUSCULAR HEMOGLOBIN 30.8 pg (27.0-33.0); MEAN CORPUSCULAR HGB CONC 33.9 g/dl (32.0-36.5); MEAN CORPUSCULAR VOLUME 90.7 fl (80.0-96.0); MONO # 0.6 10^3/uL (0.0-0.8); MONO % 4.7 % (0.0-5.0); NEUTROPHILS # 10.5 10^3/uL (1.8-7.7); NEUTROPHILS % 77.6 % (36.0-66.0); PLATELET COUNT, AUTOMATED 316 10^3/uL (150-450); RED BLOOD COUNT 4.29 10^6/uL (4.00-5.40); WHITE BLOOD COUNT 13.5 10^3/uL (4.0-10.0)
[2018-04-08 19:30] LABS: BLOOD UREA NITROGEN 10 MG/DL (7-18); C REACTIVE PROTEIN QUANTITATIV 0.73 MG/DL (0.00-0.30); CALCIUM LEVEL 8.7 MG/DL (8.5-10.1); CARBON DIOXIDE LEVEL 27 MEQ/L (21-32); CHLORIDE LEVEL 108 MEQ/L (98-107); CREATININE FOR GFR 1.03 MG/DL (0.55-1.30); GLOMERULAR FILTRATION RATE > 60.0 (>58); GLUCOSE, FASTING 97 MG/DL (70-100); POTASSIUM SERUM 3.5 MEQ/L (3.5-5.1); SODIUM LEVEL 140 MEQ/L (136-145)
[2018-04-08 19:41] LABS: ERYTHROCYTE SEDIMENTATION RATE 6 mm/hr (0-20)
[2018-04-08] MEDS ORDERED: cefTRIAXone SOD 1 GM in D5W MINI-BAG PLUS 50 ML IV ONE (20:00)
[2018-04-08] MEDS ORDERED: SKEL800T97 PO (20:32)
[2018-04-08] MEDS ORDERED: PRED20TA PO (20:32)
[2018-04-08 20:38] VITALS: BP 124/77
[2018-04-08] MEDS ORDERED: METAXALONE 800 MG TABLET PO ONE (20:45)
== END 2018-04-08 20:41 | disposition home or self-care (01) ==
LOC: M ED 17:16
DX: M54.6 Pain in thoracic spine (principal); M54.2 Cervicalgia; J45.909 Unspecified asthma, uncomplicated; K21.9 Gastro-esophageal reflux disease without esophagitis; M32.9 Systemic lupus erythematosus, unspecified; F33.9 Major depressive disorder, recurrent, unspecified; F41.9 Anxiety disorder, unspecified; Z79.899 Other long term (current) drug therapy; Z79.82 Long term (current) use of aspirin; Z88.0 Allergy status to penicillin; Z88.1 Allergy status to other antibiotic agents; Z88.2 Allergy status to sulfonamides; Z88.8 Allergy status to other drugs, medicaments and biological substances; Z91.040 Latex allergy status
CPT/HCPCS: 80048; 83605; 85025; 85652; 86140; 87040; 96365; 96375; 99284; J0696; J2930

== ENCOUNTER 2018-04-20 12:53 | Emergency (ER) | payer MEDICARE ==
[~2018-04-20] VITALS: Ht 157.5 cm; Wt 86.8 kg
[~2018-04-20 12:53] MED LIST changes: +PRED20TA PO; +SKEL800T97 PO
[2018-04-20] MEDS ORDERED: VALA1TAB2 (13:02)
[2018-04-20] MEDS ORDERED: HYDR200T3 (13:02)
[2018-04-20] MEDS ORDERED: NS 1,000 ML IV ONE (14:00)
[2018-04-20] MEDS ORDERED: ACETAMINOPHEN 325 MG TAB PO ONE (14:00)
[2018-04-20 14:22] LABS: HEMATOCRIT 40.9 % (36.0-47.0); HEMOGLOBIN 13.8 g/dl (12.0-15.5); MEAN CORPUSCULAR HEMOGLOBIN 30.2 pg (27.0-33.0); MEAN CORPUSCULAR HGB CONC 33.7 g/dl (32.0-36.5); MEAN CORPUSCULAR VOLUME 89.5 fl (80.0-96.0); PLATELET COUNT, AUTOMATED 327 10^3/uL (150-450); RED BLOOD COUNT 4.57 10^6/uL (4.00-5.40)
[2018-04-20 14:32] LABS: WHITE BLOOD COUNT 18.4 10^3/uL (4.0-10.0)
[2018-04-20 14:41] LABS: APPEARANCE, URINE CLEAR (CLEAR); BACTERIA, URINE AUTO 1+ (NEGATIVE); BILIRUBIN, URINE AUTO NEGATIVE (NEGATIVE); BLOOD, URINE BLOOD NEGATIVE (NEGATIVE); COLOR, URINE STRAW (YELLOW); GLUCOSE, URINE (UA) AUTO NEGATIVE (NEGATIVE); KETONE, URINE AUTO NEGATIVE (NEGATIVE); LEUKOCYTE ESTERASE, URINE AUTO TRACE (NEGATIVE); NITRITE, URINE AUTO NEGATIVE (NEGATIVE); PROTEIN, URINE AUTO NEGATIVE (NEGATIVE); RBC, URINE AUTO 1 /HPF (0-3); SPECIFIC GRAVITY URINE AUTO 1.006 (1.002-1.035); SQUAMOUS EPITHELIAL CELL UR AU 1 /HPF (0-6); UROBILINOGEN, URINE AUTO 0.2 mg/dL (0.0-2.0); WBC, URINE AUTO 1 /HPF (0-3)
[2018-04-20 14:46] LABS: ERYTHROCYTE SEDIMENTATION RATE 1 mm/hr (0-20)
[2018-04-20 15:01] LABS: BASOPHILS 1 % (0-4); EOSINOPHILS 2 % (0-5); LYMPHOCYTES 36 % (16-52); MONOCYTES 1 % (0-8); NEUTROPHILS 60 % (35-75); PLATELET ESTIMATE NORMAL (NORMAL)
[2018-04-20 15:04] LABS: BLOOD UREA NITROGEN 12 MG/DL (7-18); C REACTIVE PROTEIN QUANTITATIV < 0.30 MG/DL (0.00-0.30); CALCIUM LEVEL 9.1 MG/DL (8.5-10.1); CARBON DIOXIDE LEVEL 31 MEQ/L (21-32); CHLORIDE LEVEL 101 MEQ/L (98-107); CREATININE FOR GFR 0.99 MG/DL (0.55-1.30); GLOMERULAR FILTRATION RATE > 60.0 (>58); GLUCOSE, FASTING 81 MG/DL (70-100); POTASSIUM SERUM 3.9 MEQ/L (3.5-5.1); SODIUM LEVEL 137 MEQ/L (136-145)
--- NOTE | 2018-04-20 16:00 | REP ---
CT Head without contrast HISTORY: Headache COMPARISON: 07/31/2016 There is no intraparenchymal hemorrhage, acute infarct, mass or midline shift. The ventricular system is normal in appearance. There is no extra cerebral collection. There is no fracture. The visualized sinuses are clear. IMPRESSION: There is no intracranial lesion. Electronically Signed by Devon Moralez MD 04/20/2018 03:53 P
[2018-04-20] MEDS ORDERED: diphenhydrAMINE INJ 50MG/ML VIAL (J1200) IV STA (17:05)
[2018-04-20] MEDS ORDERED: METOCLOPRAMIDE INJ 10MG/2ML VIAL (J2765) IV ONE (17:15)
[2018-04-20 19:50] VITALS: BP 121/75
== END 2018-04-20 19:57 | disposition home or self-care (01) ==
LOC: M ED 12:53
DX: R51 Headache (principal); E03.9 Hypothyroidism, unspecified
CPT/HCPCS: 36415; 70450; 80048; 81001; 84443; 85025; 85652; 86140; 96374; 96375; 99284; J1200; J2765

== ENCOUNTER → 2018-04-29 | Outpatient (REF) | payer MEDICARE ==
[~2018-04-29] MED LIST changes: +HYDR200T3; +VALA1TAB2
[2018-05-02 08:51] LABS: ANA (HEP2) Negative (.); BETA-2 GLYCOPROTEIN I ABY IGA <9 (0-25); BETA-2 GLYCOPROTEIN I ABY IGG <9 (0-20); BETA-2 GLYCOPROTEIN I ABY IGM <9 (0-32); CARDIOLIPIN IGA ANTIBODY <9 APL U/mL (0-11); CARDIOLIPIN IGG ANTIBODY <9 GPL U/mL (0-14); CARDIOLIPIN IGM ANTIBODY <9 MPL U/mL (0-12)
[2018-05-04 10:50] LABS: DRVV SCREEN 44.4 SEC; PTT LUPUS TYPE ANTICOAG SCREEN 1.1 (0-1.2)
== END ==
LOC: M SFHCPLAZ 11:36
PROVIDERS: ATTEND Internal Medicine Rheumatology
DX: M32.9 Systemic lupus erythematosus, unspecified (principal)

== ENCOUNTER 2018-08-04 22:26 | Emergency (ER) | payer MEDICARE, MEDICAID ==
[~2018-08-04] VITALS: Ht 157.5 cm; Wt 87.3 kg
[~2018-08-04 22:26] MED LIST changes: -ASPI1TAB PO; +ASPI81TA26 PO
[2018-08-05 00:21] VITALS: BP 138/75
--- NOTE | 2018-08-05 09:17 | REP ---
Left ankle: Four views. History: Swelling and ecchymosis. Findings: Ankle mortise is intact. No fracture or subluxation is seen. Impression: No fracture seen. Electronically Signed by Stephane Gomez MD 08/05/2018 09:07 A
== END 2018-08-05 00:23 | disposition home or self-care (01) ==
LOC: M ED 22:26
DX: G57.92 Unspecified mononeuropathy of left lower limb (principal); I10 Essential (primary) hypertension; R51 Headache; J45.909 Unspecified asthma, uncomplicated; K21.9 Gastro-esophageal reflux disease without esophagitis; N30.10 Interstitial cystitis (chronic) without hematuria; F41.9 Anxiety disorder, unspecified; F32.9 Major depressive disorder, single episode, unspecified; Z79.82 Long term (current) use of aspirin; Z79.899 Other long term (current) drug therapy; Z88.8 Allergy status to other drugs, medicaments and biological substances; Z88.2 Allergy status to sulfonamides; Z88.0 Allergy status to penicillin; Z91.040 Latex allergy status

== ENCOUNTER → 2018-08-16 | Outpatient (REF) | payer MEDICARE, MEDICAID | LOC: M SMT 13:13 | PROVIDERS: ATTEND Nurse Practitioner Women's Health | DX: R82.90 Unspecified abnormal findings in urine (principal) | CPT/HCPCS: 51798; 87086; G0463 ==

== ENCOUNTER → 2018-10-27 | Outpatient (CLI) | payer MEDICARE, MEDICAID ==
--- NOTE | 2018-10-27 13:31 | REP ---
REASON FOR EXAM: Chronic cough. COMPARISON: 06/02/2016. FINDINGS: The superior mediastinal structures are midline. The cardiac silhouette is unremarkable in size, shape, and position. The diaphragmatic surfaces of the lungs are regular, and the costophrenic angles are clear. The pulmonary mir are clear. The imaged osseous structures are intact. COMMENT: If clinical suspicion is high due to the patient having a chronic cough, then CT is more sensitive. IMPRESSION: There is no acute cardiopulmonary disease. Electronically Signed by Jeffrey Daley DO 10/27/2018 02:03 P
== END ==
LOC: M RAD 12:11
PROVIDERS: ATTEND Family Medicine
DX: R05 Cough (principal)
CPT/HCPCS: 71046; G0463

== ENCOUNTER → 2018-11-30 | Outpatient (REF) | payer MEDICARE, MEDICAID ==
[2018-11-30 13:02] LABS: APPEARANCE, URINE CLEAR (CLEAR); BACTERIA, URINE AUTO 1+ (NEGATIVE); BILIRUBIN, URINE AUTO NEGATIVE (NEGATIVE); BLOOD, URINE BLOOD 3+ (NEGATIVE); COLOR, URINE STRAW (YELLOW); GLUCOSE, URINE (UA) AUTO NEGATIVE (NEGATIVE); KETONE, URINE AUTO TRACE mg/dL (NEGATIVE); LEUKOCYTE ESTERASE, URINE AUTO NEGATIVE (NEGATIVE); NITRITE, URINE AUTO NEGATIVE (NEGATIVE); PROTEIN, URINE AUTO NEGATIVE (NEGATIVE); RBC, URINE AUTO 6 /HPF (0-3); SPECIFIC GRAVITY URINE AUTO 1.004 (1.002-1.035); SQUAMOUS EPITHELIAL CELL UR AU 0 /HPF (0-6); UROBILINOGEN, URINE AUTO 0.2 mg/dL (0.0-2.0); WBC, URINE AUTO 0 /HPF (0-3)
[2018-11-30 13:13] LABS: BASO % 0.5 % (0.0-1.0); EOS # 0.1 10^3/uL (0.0-0.5); EOS % 2.2 % (0.0-3.0); HEMATOCRIT 37.5 % (36.0-47.0); HEMOGLOBIN 12.2 g/dl (12.0-15.5); LYMPH # 1.5 10^3/uL (1.5-5.0); LYMPH % 26.5 % (24.0-44.0); MEAN CORPUSCULAR HEMOGLOBIN 27.6 pg (27.0-33.0); MEAN CORPUSCULAR HGB CONC 32.5 g/dl (32.0-36.5); MEAN CORPUSCULAR VOLUME 84.8 fl (80.0-96.0); MONO # 0.4 10^3/uL (0.0-0.8); MONO % 6.8 % (0.0-5.0); NEUTROPHILS # 3.5 10^3/uL (1.5-8.5); NEUTROPHILS % 63.8 % (36.0-66.0); PLATELET COUNT, AUTOMATED 276 10^3/uL (150-450); RED BLOOD COUNT 4.42 10^6/uL (4.00-5.40); WHITE BLOOD COUNT 5.5 10^3/uL (4.0-10.0)
[2018-11-30 13:33] LABS: ERYTHROCYTE SEDIMENTATION RATE 4 mm/hr (0-20)
[2018-11-30 13:43] LABS: ALBUMIN 3.9 GM/DL (3.2-5.2); ALT/SGPT 27 U/L (12-78); BILIRUBIN,TOTAL 0.4 MG/DL (0.2-1.0); BLOOD UREA NITROGEN 8 MG/DL (7-18); C REACTIVE PROTEIN QUANTITATIV < 0.30 MG/DL (0.00-0.30); CALCIUM LEVEL 9.5 MG/DL (8.5-10.1); CARBON DIOXIDE LEVEL 26 MEQ/L (21-32); CHLORIDE LEVEL 106 MEQ/L (98-107); CREATININE FOR GFR 0.81 MG/DL (0.55-1.30); FREE T4 1.04 NG/DL (0.76-1.46); GLOMERULAR FILTRATION RATE > 60.0 (>58); GLUCOSE, FASTING 86 MG/DL (70-100); POTASSIUM SERUM 3.7 MEQ/L (3.5-5.1); SODIUM LEVEL 140 MEQ/L (136-145); TOTAL PROTEIN 6.8 GM/DL (6.4-8.2)
[2018-12-01 10:04] LABS: HIV 1&2 SCREEN CENTAUR NEGATIVE (NEGATIVE)
== END ==
LOC: M SFHCPLAZ 10:47
PROVIDERS: ATTEND Internal Medicine Infectious Disease
DX: N92.0 Excessive and frequent menstruation with regular cycle (principal); R63.4 Abnormal weight loss; J03.90 Acute tonsillitis, unspecified
CPT/HCPCS: 36415; 80053; 81001; 84439; 84443; 85025; 85652; 86140; 87040; 87070; 87086; 87102; 87103; 87389; G0463

== ENCOUNTER → 2018-12-28 | Outpatient (CLI) | payer MEDICARE, MEDICAID ==
[~2018-12-28] MED LIST changes: +ISOVUE-370 76% 100ML VIAL (Q9967) As Ordered ONE; -OMEP40CA2 PO; +OMEP40CA97 PO
--- NOTE | 2018-12-28 11:29 | REP ---
CT neck soft tissues: 12/28/2018. Indication: Neck mass. Comparison: None. Technique: Axial images of the neck soft tissues were obtained following IV administration of 75 ml IV Isovue 370. Coronal and sagittal reconstructions were provided. Findings: No abnormal soft tissue masses or fluid collections are present. There is no cervical lymphadenopathy. No areas of pathologic gadolinium enhancement are present. No vascular abnormalities are detected. The submandibular, parotid and thyroid glands are unremarkable. The visualized lungs are clear. No ocular, intraorbital or intracranial abnormalities are detected. The paranasal sinuses and mastoid air cells are clear. Impression: No abnormal soft tissue mass, abnormal fluid collection or cervical lymphadenopathy. Electronically Signed by Bean Hicks DO 12/28/2018 11:20 A
== END ==
LOC: M RAD 10:03
PROVIDERS: ATTEND Otolaryngology
DX: R22.1 Localized swelling, mass and lump, neck (principal)
CPT/HCPCS: 70491; Q9967

== ENCOUNTER → 2019-01-04 | Outpatient (CLI) | payer MEDICARE, MEDICAID ==
[~2019-01-04] MED LIST changes: -ISOVUE-370 76% 100ML VIAL (Q9967) As Ordered ONE
[2019-01-04 08:18] LABS: CHOLESTEROL RISK RATIO 2.692 (<5)
== END ==
LOC: M LAB 07:16
PROVIDERS: ATTEND Family Medicine
DX: Z13.220 Encounter for screening for lipoid disorders (principal); Z79.899 Other long term (current) drug therapy

== ENCOUNTER → 2019-01-10 | Outpatient (REF) | payer MEDICARE, MEDICAID ==
[2019-01-10 13:58] LABS: BASO # 0.1 10^3/uL (0.0-0.2); BASO % 0.7 % (0.0-1.0); EOS # 0.1 10^3/uL (0.0-0.5); HEMATOCRIT 39.8 % (36.0-47.0); HEMOGLOBIN 12.5 g/dl (12.0-15.5); LYMPH # 2.4 10^3/uL (1.5-5.0); LYMPH % 35.9 % (24.0-44.0); MEAN CORPUSCULAR HEMOGLOBIN 26.9 pg (27.0-33.0); MEAN CORPUSCULAR HGB CONC 31.4 g/dl (32.0-36.5); MEAN CORPUSCULAR VOLUME 85.6 fl (80.0-96.0); MONO # 0.5 10^3/uL (0.0-0.8); MONO % 6.9 % (0.0-5.0); NEUTROPHILS # 3.7 10^3/uL (1.5-8.5); NEUTROPHILS % 55.2 % (36.0-66.0); PLATELET COUNT, AUTOMATED 316 10^3/uL (150-450); RED BLOOD COUNT 4.65 10^6/uL (4.00-5.40); WHITE BLOOD COUNT 6.7 10^3/uL (4.0-10.0)
[2019-01-10 14:31] LABS: ALT/SGPT 26 U/L (12-78); BILIRUBIN,TOTAL 0.3 MG/DL (0.2-1.0); BLOOD UREA NITROGEN 9 MG/DL (7-18); C REACTIVE PROTEIN QUANTITATIV < 0.30 MG/DL (0.00-0.30); CALCIUM LEVEL 9.5 MG/DL (8.5-10.1); CARBON DIOXIDE LEVEL 26 MEQ/L (21-32); CHLORIDE LEVEL 105 MEQ/L (98-107); CREATININE FOR GFR 0.87 MG/DL (0.55-1.30); GLOMERULAR FILTRATION RATE > 60.0 (>58); GLUCOSE, FASTING 92 MG/DL (70-100); IMMUNOGLOBULIN G 1010 MG/DL (681-1648); SODIUM LEVEL 141 MEQ/L (136-145); TOTAL PROTEIN 7.2 GM/DL (6.4-8.2)
[2019-01-10 15:18] LABS: ERYTHROCYTE SEDIMENTATION RATE 5 mm/hr (0-20)
== END ==
LOC: M SFHCPLAZ 11:10
PROVIDERS: ATTEND Internal Medicine Infectious Disease
DX: R63.4 Abnormal weight loss (principal)
CPT/HCPCS: 36415; 80053; 82784; 85025; 85652; 86140; G0463

== ENCOUNTER → 2019-01-13 | Outpatient (CLI) | payer MEDICARE, MEDICAID ==
[~2019-01-13] MED LIST changes: +GASTROGRAFIN SOLUTION 30ML (Q9963) As Ordered ONE; +ISOVUE-370 76% 100ML VIAL (Q9967) As Ordered ONE
--- NOTE | 2019-01-14 08:16 | REP ---
CT of the chest without IV contrast for weight loss: There are no comparisons. There are no lung masses or nodules. There are no infiltrates or pleural effusions. There is no mediastinal or axillary adenopathy. The study is insensitive for hilar adenopathy in the absence of IV contrast. The unenhanced thoracic aorta is. Cardiac size is normal. There is no pericardial effusion. There are no lytic, blastic or destructive skeletal changes. Impression: Essentially negative CT study of the chest. Electronically Signed by Musa Michaels MD 01/14/2019 08:07 A
--- NOTE | 2019-01-14 08:22 | REP ---
CT of the abdomen without IV contrast, CT of the abdomen and pelvis with IV contrast, bowel contrast is used on both phases: The studies performed for weight loss. There are no comparisons. The visualized lung mir are unremarkable. The hepatic parenchyma, gallbladder, pancreas and spleen are normal size and unremarkable. The adrenals are unremarkable. The kidneys are unremarkable. The abdominal aorta is unremarkable. There is no periaortic adenopathy or mass. There is diffuse gastric wall thickening. This is nonspecific and could be artifact from under distension or could represent gastric wall hypertrophy/neoplasm . The bowel and mesentery are unremarkable. Pelvis: The appendix is unremarkable. The uterus and adnexa are unremarkable. There is no adenopathy or ascites. The bladder is unremarkable. There are no lytic, blastic or destructive skeletal changes. Impression: Diffuse gastric wall thickening, nonspecific, artifact from under distension versus hypertrophy/neoplasm. No ascites or adenopathy. No mass. Otherwise, negative CT of the abdomen pelvis. Electronically Signed by Musa Michaels MD 01/14/2019 08:14 A
== END ==
LOC: M RAD 15:46
PROVIDERS: ATTEND Internal Medicine Infectious Disease
DX: K31.89 Other diseases of stomach and duodenum (principal); R63.4 Abnormal weight loss
CPT/HCPCS: 71250; 74178; Q9963; Q9967

== ENCOUNTER → 2019-01-15 | Outpatient (REF) | payer MEDICARE, MEDICAID ==
[~2019-01-15] MED LIST changes: -GASTROGRAFIN SOLUTION 30ML (Q9963) As Ordered ONE; -ISOVUE-370 76% 100ML VIAL (Q9967) As Ordered ONE
[2019-01-15 10:15] LABS: APPEARANCE, URINE CLEAR (CLEAR); BACTERIA, URINE AUTO 1+ (NEGATIVE); BILIRUBIN, URINE AUTO NEGATIVE (NEGATIVE); BLOOD, URINE BLOOD 2+ (NEGATIVE); COLOR, URINE STRAW (YELLOW); GLUCOSE, URINE (UA) AUTO NEGATIVE (NEGATIVE); KETONE, URINE AUTO TRACE mg/dL (NEGATIVE); LEUKOCYTE ESTERASE, URINE AUTO NEGATIVE (NEGATIVE); NITRITE, URINE AUTO NEGATIVE (NEGATIVE); PROTEIN, URINE AUTO NEGATIVE (NEGATIVE); RBC, URINE AUTO 0 /HPF (0-3); SPECIFIC GRAVITY URINE AUTO 1.003 (1.002-1.035); SQUAMOUS EPITHELIAL CELL UR AU 1 /HPF (0-6); UROBILINOGEN, URINE AUTO 0.2 mg/dL (0.0-2.0); WBC, URINE AUTO 1 /HPF (0-3)
== END ==
LOC: M LAB REF 09:54
PROVIDERS: ATTEND Internal Medicine Infectious Disease
DX: R39.89 Other symptoms and signs involving the genitourinary system (principal)

== ENCOUNTER → 2019-04-06 | Outpatient (REF) | payer MEDICARE, MEDICAID ==
[~2019-04-06] MED LIST changes: -BUPR300T34; +BUPR300T92; +BUPR75TA5; +CARA1TAB6 PO; +FERR325T18; -MONT10TA2 PO; +MONT10TA4 PO; +PEPC1TAB5 PO; +POTA2.5T PO; +PROP20TA72; +PROP60CA; -VALA1TAB2; +VALA1TAB5
[2019-04-06 13:46] LABS: FREE T4 0.94 NG/DL (0.76-1.46); THYROID STIMULATING HORMONE 1.47 uIU/ML (0.358-3.740)
[2019-04-08 14:08] LABS: ANTI CENTROMERE ANTIBODY <0.2 AI (0.0-0.9); ANTI DS-DNA AB Negative (Negative)
== END ==
LOC: M SFHCRHEU 09:02
PROVIDERS: ATTEND Internal Medicine
DX: L65.9 Nonscarring hair loss, unspecified (principal); M32.9 Systemic lupus erythematosus, unspecified; I73.00 Raynaud's syndrome without gangrene
CPT/HCPCS: 36415; 82728; 83540; 84439; 84443; 86160; 86225; 86255; G0463

== ENCOUNTER → 2019-04-12 | Outpatient (CLI) | payer MEDICARE, MEDICAID ==
[~2019-04-12] MED LIST changes: -BUPR75TA5; -CARA1TAB6 PO; -FERR325T18; +MONT10TA2 PO; -MONT10TA4 PO; -PEPC1TAB5 PO; -POTA2.5T PO; -PROP20TA72; -PROP60CA; -VALA1TAB5; +VALA1TAB64
== END ==
LOC: M PLALAB 10:29
PROVIDERS: ATTEND Nurse Practitioner Women's Health
DX: Z13.9 Encounter for screening, unspecified (principal)

== ENCOUNTER → 2019-04-12 | Outpatient (CLI) | payer MEDICARE, MEDICAID ==
[~2019-04-12] MED LIST changes: +BUPR75TA5; +CARA1TAB6 PO; +DYMI137S; +FERR325T18; +FERR325T3 PO; +FLON1SPR; -MONT10TA2 PO; +MONT10TA4 PO; +PEPC1TAB5 PO; +POTA2.5T PO; +PROP20TA72; +PROP60CA; +VALA1TAB5; -VALA1TAB64; +WELL1000 PO
--- NOTE | 2019-04-12 11:15 | REP ---
BILATERAL SCREENING DIGITAL MAMMOGRAM WITH 3D TOMOSYNTHESIS: There are no palpable abnormalities or other breast complaints. The the patient states she had a clinical breast examination April,. The Tyrer Cuzick Lifetime Breast Cancer Risk Score is: 21.3% . There are no comparisons. The study is a baseline study. The breasts are heterogeneously dense, which could obscure small masses. There is no dominant mass, micro calcific cluster or architectural distortion that would indicate malignancy. There are no additional findings on 3D tomosynthesiss. Impression: BIRADS/ACR category 1 mammogram. Negative. Recommendation: Routine annual screening mammography. Because of the increased breast density, annual adjunctive breast MRI in addition to screening mammography is recommended. These can be performed at alternating six month intervals. For women with a Tyrer-Cuzick score greater than 20 , adjunctive annual breast MRI in addition to screening mammography is recommended. These can be performed at alternating six month intervals. This mammogram was interpreted with the aid of a FDA approved computer-aided detection system. A. Negative mammogram reports should not delay biopsy if a dominant or clinically suspicious mass is present. B. Not all breast cancers are identified by mammography or tomosynthesis. C. Adenosis and dense breasts may obscure an underlying neoplasm. Patient letter M1 dense breasts. Electronically Signed by Musa Michaels MD 04/12/2019 11:07 A
== END ==
LOC: M WHC 09:40
PROVIDERS: ATTEND Family Medicine
DX: Z12.31 Encounter for screening mammogram for malignant neoplasm of breast (principal)
CPT/HCPCS: 36415; 77063; 77067; G0463

== ENCOUNTER 2019-04-23 17:54 | Emergency (ER) | payer MEDICARE, MEDICAID ==
[~2019-04-23] VITALS: Ht 157.5 cm; Wt 67.6 kg
[~2019-04-23 17:54] MED LIST changes: -BUPR75TA5; -CARA1TAB6 PO; -DYMI137S; -FERR325T18; -FERR325T3 PO; -FLON1SPR; -PEPC1TAB5 PO; -POTA2.5T PO; -PROP20TA72; -PROP60CA; -WELL1000 PO
[2019-04-23] MEDS ORDERED: FERR325T18 (18:39)
[2019-04-23] MEDS ORDERED: PROP60CA (18:39)
[2019-04-23] MEDS ORDERED: POTA2.5T PO (18:41)
[2019-04-23 19:05] LABS: BASO % 0.3 % (0.0-1.0); EOS # 0.1 10^3/uL (0.0-0.5); EOS % 1.5 % (0.0-3.0); HEMATOCRIT 37.5 % (36.0-47.0); HEMOGLOBIN 12.5 g/dl (12.0-15.5); LYMPH # 4.2 10^3/uL (1.5-5.0); LYMPH % 47.7 % (24.0-44.0); MEAN CORPUSCULAR HEMOGLOBIN 27.9 pg (27.0-33.0); MEAN CORPUSCULAR HGB CONC 33.3 g/dl (32.0-36.5); MEAN CORPUSCULAR VOLUME 83.7 fl (80.0-96.0); MONO # 0.7 10^3/uL (0.0-0.8); MONO % 7.8 % (0.0-5.0); NEUTROPHILS # 3.7 10^3/uL (1.5-8.5); NEUTROPHILS % 42.5 % (36.0-66.0); PLATELET COUNT, AUTOMATED 351 10^3/uL (150-450); RED BLOOD COUNT 4.48 10^6/uL (4.00-5.40); WHITE BLOOD COUNT 8.8 10^3/uL (4.0-10.0)
[2019-04-23 19:36] LABS: ALBUMIN 4.2 GM/DL (3.2-5.2); ALT/SGPT 30 U/L (12-78); BILIRUBIN,DIRECT 0.1 MG/DL (0.0-0.2); BILIRUBIN,TOTAL 0.3 MG/DL (0.2-1.0); BLOOD UREA NITROGEN 10 MG/DL (7-18); CARBON DIOXIDE LEVEL 25 MEQ/L (21-32); CHLORIDE LEVEL 101 MEQ/L (98-107); CK-MB VALUE MASS 1.6 NG/ML (<3.6); CPK CREATINE PHOSPHOKINASE 148 U/L (26-192); CREATININE FOR GFR 0.71 MG/DL (0.55-1.30); GLOMERULAR FILTRATION RATE > 60.0 (>58); GLUCOSE, FASTING 76 MG/DL (70-100); MB/CK RELATIVE INDEX 1.08 (< OR =4); POTASSIUM SERUM 3.4 MEQ/L (3.5-5.1); SODIUM LEVEL 136 MEQ/L (136-145); TOTAL PROTEIN 7.2 GM/DL (6.4-8.2); TROPONIN I < 0.02 NG/ML (< 0.10)
[2019-04-23 20:15] VITALS: BP 121/63
== END 2019-04-23 20:35 | disposition home or self-care (01) ==
LOC: M ED 17:54
DX: T59.91XA Toxic effect of unspecified gases, fumes and vapors, accidental (unintentional), initial encounter (principal); E03.9 Hypothyroidism, unspecified; Z88.2 Allergy status to sulfonamides; Z88.8 Allergy status to other drugs, medicaments and biological substances; Z91.040 Latex allergy status

== ENCOUNTER 2019-04-25 18:39 | Emergency (ER) | payer MEDICARE, MEDICAID ==
[~2019-04-25] VITALS: Ht 157.5 cm; Wt 65.0 kg
[~2019-04-25 18:39] MED LIST changes: +FERR325T18; +POTA2.5T PO; +PROP60CA
[2019-04-25] MEDS ORDERED: BUPR75TA5 (19:01)
[2019-04-25] MEDS ORDERED: PROP20TA72 (19:01)
[2019-04-25] MEDS ORDERED: ONDANSETRON 4MG/2ML VIAL (J2405) IV ONE (19:45)
[2019-04-25] MEDS ORDERED: GI COCKTAIL 50ML BTL(HYOSCYAMINE/MAALOX/LIDOCAINE VISCOUS)(1:3:1) PO ONE (19:45)
--- NOTE | 2019-04-25 19:50 | ECGEPIP ---
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
[2019-04-25 20:17] LABS: BASO % 0.3 % (0.0-1.0); EOS # 0.1 10^3/uL (0.0-0.5); EOS % 0.5 % (0.0-3.0); HEMATOCRIT 36.2 % (36.0-47.0); LYMPH # 2.3 10^3/uL (1.5-5.0); LYMPH % 24.9 % (24.0-44.0); MEAN CORPUSCULAR HEMOGLOBIN 27.9 pg (27.0-33.0); MEAN CORPUSCULAR HGB CONC 33.1 g/dl (32.0-36.5); MEAN CORPUSCULAR VOLUME 84.2 fl (80.0-96.0); MONO # 0.7 10^3/uL (0.0-0.8); MONO % 6.9 % (0.0-5.0); NEUTROPHILS # 6.3 10^3/uL (1.5-8.5); NEUTROPHILS % 67.2 % (36.0-66.0); PLATELET COUNT, AUTOMATED 294 10^3/uL (150-450); WHITE BLOOD COUNT 9.4 10^3/uL (4.0-10.0)
--- NOTE | 2019-04-25 20:37 | REP ---
Clinical: chest pain. Comparison: 10/27/2018. Findings: The mediastinum and cardiac silhouette are stable and within normal limits for portable technique. The lung mir are clear without acute consolidation, effusion, or pneumothorax. Skeletal structures are intact. Impression: No acute cardiopulmonary process appreciated. Electronically Signed by Choco St MD 04/25/2019 08:29 P
[2019-04-25 20:39] LABS: ALBUMIN 3.9 GM/DL (3.2-5.2); ALT/SGPT 28 U/L (12-78); BILIRUBIN,DIRECT < 0.1 MG/DL (0.0-0.2); BILIRUBIN,TOTAL 0.2 MG/DL (0.2-1.0); LIPASE 145 U/L (73-393); TOTAL PROTEIN 6.9 GM/DL (6.4-8.2)
[2019-04-25 20:42] LABS: BLOOD UREA NITROGEN 10 MG/DL (7-18); CALCIUM LEVEL 9.3 MG/DL (8.5-10.1); CARBON DIOXIDE LEVEL 27 MEQ/L (21-32); CHLORIDE LEVEL 109 MEQ/L (98-107); CK-MB VALUE MASS 1.2 NG/ML (<3.6); CPK CREATINE PHOSPHOKINASE 82 U/L (26-192); CREATININE FOR GFR 0.71 MG/DL (0.55-1.30); GLOMERULAR FILTRATION RATE > 60.0 (>58); GLUCOSE, FASTING 84 MG/DL (70-100); MB/CK RELATIVE INDEX 1.46 (< OR =4); POTASSIUM SERUM 3.6 MEQ/L (3.5-5.1); SODIUM LEVEL 141 MEQ/L (136-145); TROPONIN I < 0.02 NG/ML (< 0.10)
[2019-04-25] MEDS ORDERED: ISOVUE-370 76% 100ML VIAL (Q9967) As Ordered ONE (21:47)
--- NOTE | 2019-04-25 22:37 | REPVR ---
PROCEDURE INFORMATION: Exam: CT Abdomen And Pelvis With Contrast Exam date and time: 04/25/2019 9:58 PM Age: 43 years old Clinical indication: Abdominal pain; Additional info: Epigastric pain TECHNIQUE: Imaging protocol: Computed tomography of the abdomen and pelvis with intravenous contrast. Radiation optimization: All CT scans at this facility use at least one of these dose optimization techniques: automated exposure control; mA and/or kV adjustment per patient size (includes targeted exams where dose is matched to clinical indication); or iterative reconstruction. Contrast material: ISOVUE 370; Contrast volume: 100 ml; Contrast route: IV; COMPARISON: CT ABD PELVIS W/O FOL BY WIT 01/13/2019 6:11 PM FINDINGS: Lungs: No suspicious mass or airspace process in the visualized lung bases. Liver: Liver appears normal with no focal abnormality. Gallbladder and bile ducts: Gallbladder is present and shows no evidence of gallstone. Pancreas: Pancreas appears normal. No focal mass or peripancreatic inflammation. Spleen: Spleen appears homogeneous without focal mass. Adrenals: Adrenal glands are normal in appearance. Kidneys and ureters: Kidneys appear normal, with no stone, solid mass or hydronephrosis. Stomach and bowel: No evidence of small bowel obstruction. Moderate pattern of colonic stool is present. No concerning asymmetry or abnormality at the GE junction. Appendix: Normal caliber appendix is identified, with no adjacent inflammation. Intraperitoneal space: No pneumoperitoneum. Trace free fluid is present in the pelvis. Vasculature: Main portal and splenic veins enhance normally. No aortic aneurysm. Lymph nodes: No enlarged lymph nodes. Bladder: Urinary bladder appears normal. Reproductive: Right ovarian cyst measuring 2 cm is present. Bones/joints: Bony structures show no acute fracture or destructive process. Other findings: No concerning focal abnormality of the extrinsic soft tissues. IMPRESSION: No acute or concerning focal abdominal or pelvic process to explain clinical symptoms. Consider upper endoscopy if symptoms persist. Electronically signed by: Diaz Bullock On 04/25/2019 22:37:17 PM
[2019-04-26] MEDS ORDERED: PEPC1TAB5 PO (00:24)
[2019-04-26] MEDS ORDERED: CARA1TAB6 PO (00:24)
[2019-04-26] MEDS ORDERED: SUCRALFATE 1 GM TAB PO ONE (00:30)
[2019-04-26] MEDS ORDERED: FAMOTIDINE 20 MG TAB PO ONE (00:30)
[2019-04-26 00:46] VITALS: BP 111/65
== END 2019-04-26 00:48 | disposition home or self-care (01) ==
LOC: M ED 18:39
DX: K30 Functional dyspepsia (principal); R19.7 Diarrhea, unspecified; R63.4 Abnormal weight loss; Z88.2 Allergy status to sulfonamides; Z88.0 Allergy status to penicillin; Z88.8 Allergy status to other drugs, medicaments and biological substances; Z91.040 Latex allergy status
CPT/HCPCS: 36415; 71045; 74177; 80048; 80076; 82550; 82553; 82784; 83516; 83690; 84484; 85025; 93005; 93041; 94760; 96374; 99285; J2405; Q9967

== ENCOUNTER → 2019-04-26 | Outpatient (REF) | payer MEDICARE, MEDICAID ==
[~2019-04-26] MED LIST changes: +BUPR75TA5; +CARA1TAB6 PO; +PEPC1TAB5 PO; +PROP20TA72
== END ==
LOC: M LAB REF 13:01
PROVIDERS: ATTEND Internal Medicine Gastroenterology
DX: R19.7 Diarrhea, unspecified (principal)

== ENCOUNTER → 2019-04-26 | Outpatient (CLI) | payer MEDICARE, MEDICAID | LOC: M LAB 12:06 | PROVIDERS: ATTEND Internal Medicine Gastroenterology | DX: R19.7 Diarrhea, unspecified (principal); R63.4 Abnormal weight loss ==

== ENCOUNTER → 2019-04-27 | Outpatient (REF) | payer MEDICARE, MEDICAID ==
[~2019-04-27] MED LIST changes: +DYMI137S; +FERR325T3 PO; +FLON1SPR; +WELL1000 PO
[2019-04-27 19:04] LABS: FREE T4 0.97 NG/DL (0.76-1.46); THYROID STIMULATING HORMONE 1.26 uIU/ML (0.358-3.740)
== END ==
LOC: M SFHCPLAZ 11:33
PROVIDERS: ATTEND Family Medicine
DX: R79.89 Other specified abnormal findings of blood chemistry (principal); Z79.899 Other long term (current) drug therapy
CPT/HCPCS: 36415; 84439; 84443; G0463

== ENCOUNTER 2019-05-10 11:29 | Day surgery (SDC) | payer MEDICARE, MEDICAID ==
[~2019-05-10] VITALS: Ht 157.5 cm; Wt 64.4 kg
[~2019-05-10 11:29] MED LIST changes: +LIDOCAINE 2% INJ 100 MG/5 ML SDV (FOR ANES.) As Ordered ONE; +NS 1,000 ML IV ONE; +propofoL 200 MG/20 ML VIAL As Ordered ONE
[2019-05-10] MEDS ORDERED: fentaNYL 100 MCG/2 ML INJECTION (J3010) As Ordered ONE (12:14)
--- NOTE | 2019-05-10 12:32 | ROOR ---
Patient Name: Elen Courtney Procedure Date: 05/10/2019 12:14 PM Date of : 1975 Age: 43 Room: [facility] Gender: Female Note Status: Finalized Procedure: Upper GI endoscopy Indications: Surveillance for malignancy due to personal history of Smith's esophagus, Epigastric abdominal pain, Iron deficiency anemia, Weight loss Providers: Naga JANE MD Referring MD: Obed Baltazar Do Requesting Provider: Medicines: Monitored Anesthesia Care Complications: No immediate complications. Procedure: Pre-Anesthesia Assessment: - The heart rate, respiratory rate, oxygen saturations, blood pressure, adequacy of pulmonary ventilation, and response to care were monitored throughout the procedure. The Endoscope was introduced through the mouth, and advanced to the second part of duodenum. The upper GI endoscopy was accomplished without difficulty. The patient tolerated the procedure well. Findings: There were esophageal mucosal changes suspicious for short-segment Smith's esophagus present in the lower third of the esophagus. The maximum longitudinal extent of these mucosal changes was 2 cm in length. Mucosa was biopsied with a cold forceps for histology randomly. The exam of the esophagus was otherwise normal. The entire examined stomach was normal. Biopsies were taken with a cold forceps for histology. The examined duodenum was normal. Biopsies were taken with a cold forceps for histology. Impression: - Esophageal mucosal changes suspicious for short-segment (2 cm) Smith's esophagus. Biopsied. - Otherwise normal esophagus. - Normal stomach. Biopsied. - Normal examined duodenum. Biopsied. Recommendation: - Telephone endoscopist for pathology results in 2 weeks. - Observe patient's clinical course. - Use Prilosec (omeprazole) 40 mg PO BID indefinitely. - Repeat upper endoscopy in 3 years for surveillance. Naga Jane MD Naga JANE MD 05/10/2019 12:31:57 PM Electronically signed by Naga JANE MD Number of Addenda: 0 Note Initiated On: 05/10/2019 12:14 PM Estimated Blood Loss: Estimated blood loss: none.
[2019-05-10] MEDS ORDERED: ePHEDrine SULFATE 25 MG/5 ML(5MG/ML) SYRINGE As Ordered ONE (12:43)
--- NOTE | 2019-05-10 12:52 | ROOR ---
Patient Name: Elen Courtney Procedure Date: 05/10/2019 12:15 PM Date of : 1975 Age: 43 Room: [facility] Gender: Female Note Status: Finalized Procedure: Colonoscopy Indications: Hematochezia, Change in bowel habits, Weight loss Providers: Naga SIMPSON MD Referring MD: Obed Baltazar Do Requesting Provider: Medicines: Monitored Anesthesia Care Complications: No immediate complications. Procedure: Pre-Anesthesia Assessment: - The heart rate, respiratory rate, oxygen saturations, blood pressure, adequacy of pulmonary ventilation, and response to care were monitored throughout the procedure. The Colonoscope was introduced through the anus and advanced to 10 cm into the ileum. The colonoscopy was performed without difficulty. The patient tolerated the procedure well. The quality of the bowel preparation was good. Findings: The perianal and digital rectal examinations were normal. Internal hemorrhoids were found during retroflexion. The hemorrhoids were medium-sized. The entire examined colon appeared redundant, but otherwise normal on direct and retroflexion views. The terminal ileum appeared normal. Biopsies for histology were taken with a cold forceps for evaluation of microscopic colitis. Impression: - Internal hemorrhoids. - The entire colon is normal on direct and retroflexion views. - The examined portion of the ileum was normal. - Biopsies were taken with a cold forceps for evaluation of microscopic colitis. Recommendation: - Continue present medications. - Telephone endoscopist for pathology results in 2 weeks. Naga Simpson MD Naga SIMPSON MD 05/10/2019 12:52:15 PM Electronically signed by Naga SIMPSON MD Number of Addenda: 0 Note Initiated On: 05/10/2019 12:15 PM Estimated Blood Loss: Estimated blood loss: none.
[2019-05-10 13:27] VITALS: BP 104/67
== END 2019-05-10 13:29 | disposition home or self-care (01) ==
LOC: M OPP 11:29
PROVIDERS: ATTEND Internal Medicine Gastroenterology
DX: K64.8 Other hemorrhoids (principal); R19.4 Change in bowel habit; R63.4 Abnormal weight loss; K92.1 Melena; K22.70 Barrett's esophagus without dysplasia; R10.13 Epigastric pain; D50.9 Iron deficiency anemia, unspecified; Z79.82 Long term (current) use of aspirin; Z79.899 Other long term (current) drug therapy; Z88.0 Allergy status to penicillin; Z88.2 Allergy status to sulfonamides; Z88.6 Allergy status to analgesic agent; Z91.040 Latex allergy status; Z87.891 Personal history of nicotine dependence
CPT/HCPCS: 43239; 45380; 88305; J3010

== ENCOUNTER → 2019-05-18 | Outpatient (REF) | payer MEDICARE, MEDICAID ==
[~2019-05-18] MED LIST changes: -LIDOCAINE 2% INJ 100 MG/5 ML SDV (FOR ANES.) As Ordered ONE; -NS 1,000 ML IV ONE; -propofoL 200 MG/20 ML VIAL As Ordered ONE
== END ==
LOC: M SFHCWAGY 13:50
PROVIDERS: ATTEND Nurse Practitioner Women's Health
DX: Z12.4 Encounter for screening for malignant neoplasm of cervix (principal)
CPT/HCPCS: 87624; G0123; G0463

== ENCOUNTER → 2019-06-13 | Outpatient (CLI) | payer MEDICARE, MEDICAID | LOC: M LABSMTC 11:08 | PROVIDERS: ATTEND Family Medicine | DX: Z11.59 Encounter for screening for other viral diseases (principal); Z20.828 Contact with and (suspected) exposure to other viral communicable diseases ==

== ENCOUNTER → 2019-09-27 | Outpatient (REF) | payer MEDICARE, MEDICAID ==
[2019-09-27 13:20] LABS: APPEARANCE, URINE CLEAR (CLEAR); BACTERIA, URINE AUTO NEGATIVE (NEGATIVE); BILIRUBIN, URINE AUTO NEGATIVE (NEGATIVE); BLOOD, URINE BLOOD NEGATIVE (NEGATIVE); COLOR, URINE YELLOW (YELLOW); GLUCOSE, URINE (UA) AUTO NEGATIVE (NEGATIVE); KETONE, URINE AUTO NEGATIVE (NEGATIVE); LEUKOCYTE ESTERASE, URINE AUTO NEGATIVE (NEGATIVE); NITRITE, URINE AUTO NEGATIVE (NEGATIVE); PROTEIN, URINE AUTO NEGATIVE (NEGATIVE); RBC, URINE AUTO 1 /HPF (0-3); SPECIFIC GRAVITY URINE AUTO 1.003 (1.002-1.035); SQUAMOUS EPITHELIAL CELL UR AU 0 /HPF (0-6); UROBILINOGEN, URINE AUTO 0.2 mg/dL (0.0-2.0); WBC, URINE AUTO 3 /HPF (0-3)
== END ==
LOC: M SFHCPLAZ 12:49
PROVIDERS: ATTEND Student in an Organized Health Care Education/Training Program
DX: R30.0 Dysuria (principal)

== ENCOUNTER → 2019-10-05 | Outpatient (REF) | payer MEDICARE, MEDICAID ==
[2019-10-31 08:42] LABS: APPEARANCE, URINE CLEAR (CLEAR); BACTERIA, URINE AUTO 1+ (NEGATIVE); BILIRUBIN, URINE AUTO NEGATIVE (NEGATIVE); BLOOD, URINE BLOOD NEGATIVE (NEGATIVE); COLOR, URINE YELLOW (YELLOW); GLUCOSE, URINE (UA) AUTO NEGATIVE (NEGATIVE); KETONE, URINE AUTO NEGATIVE (NEGATIVE); LEUKOCYTE ESTERASE, URINE AUTO NEGATIVE (NEGATIVE); NITRITE, URINE AUTO NEGATIVE (NEGATIVE); PROTEIN, URINE AUTO NEGATIVE (NEGATIVE); RBC, URINE AUTO 0 /HPF (0-3); SPECIFIC GRAVITY URINE AUTO 1.002 (1.002-1.035); SQUAMOUS EPITHELIAL CELL UR AU 1 /HPF (0-6); UROBILINOGEN, URINE AUTO 0.2 mg/dL (0.0-2.0); WBC, URINE AUTO 0 /HPF (0-3)
== END ==
LOC: M SFHCPLAZ 12:06
PROVIDERS: ATTEND Family Medicine
DX: R30.0 Dysuria (principal)

== ENCOUNTER → 2019-12-27 | Outpatient (CLI) | payer MEDICARE, MEDICAID ==
[~2019-12-27] MED LIST changes: -MONT10TA4 PO; +MONT5TAB2 PO; +PROHANCE 279.3MG/ML 15ML VIAL As Ordered ONE; +RISP-7 PO; +RISP-8 PO; -RISP0.5T3 PO; -RISP1TAB3 PO
--- NOTE | 2019-12-27 15:33 | REP ---
INDICATION: FAM HX OF BREAST CA. Lifetime risk of breast cancer 21.3%. COMPARISON: Mammogram 04/12/2019. TECHNIQUE: Three Latoya MRI imaging was performed with a dedicated breast coil. Axial, coronal, and sagittal T1 and T2 weighted scans were obtained with and without fat saturation in the usual fashion. The study includes dynamically acquired post gadolinium-enhanced imaging with image subtraction. Maximum intensity projection and multi planar reformation imaging is included as well. This study is interpreted with the aid of [employer], an FDA approved computer aided detection (CAD) software program, on a dedicated breast MRI workstation. The gadolinium enhancement dose is 12 mL of intravenous ProHance. FINDINGS: There is moderate fibroglandular tissue bilaterally in a fairly symmetrical pattern. There is moderate background parenchymal enhancement diffusely bilaterally. No significant cystic changes seen in either breast. There is no suspicious enhancing mass or morphologic abnormality. I see no axillary adenopathy. IMPRESSION: BI-RADS category 1 negative bilateral breast MRI. Yearly supplemental screening MRI of the breasts is recommended for patients with an elevated lifetime risk of breast cancer of 20% or greater, in addition to annual screening mammography, staggered every 6 months. <Electronically signed by Musa Hawk > 12/27/19 [id number]
== END ==
LOC: M RAD 12:55
PROVIDERS: ATTEND Nurse Practitioner Women's Health
DX: R92.2 Inconclusive mammogram (principal); Z80.3 Family history of malignant neoplasm of breast
CPT/HCPCS: A9576; C8908

== ENCOUNTER → 2020-02-07 | Outpatient (CLI) | payer OTHER ==
[~2020-02-07] MED LIST changes: -PROHANCE 279.3MG/ML 15ML VIAL As Ordered ONE
== END ==
LOC: M LABSMTC 13:44
PROVIDERS: ATTEND Family Medicine
DX: Z20.828 Contact with and (suspected) exposure to other viral communicable diseases (principal)

== ENCOUNTER → 2020-02-22 | Outpatient (CLI) | payer MEDICARE, MEDICAID ==
[2020-02-22 16:01] LABS: BASO # 0.1 10^3/uL (0.0-0.2); BASO % 0.7 % (0.0-1.0); EOS # 0.2 10^3/uL (0.0-0.5); EOS % 2.9 % (0.0-3.0); HEMATOCRIT 35.2 % (36.0-47.0); HEMOGLOBIN 10.8 g/dl (12.0-15.5); LYMPH # 2.3 10^3/uL (1.5-5.0); LYMPH % 31.1 % (24.0-44.0); MEAN CORPUSCULAR HEMOGLOBIN 24.9 pg (27.0-33.0); MEAN CORPUSCULAR HGB CONC 30.7 g/dl (32.0-36.5); MEAN CORPUSCULAR VOLUME 81.1 fl (80.0-96.0); MONO # 0.6 10^3/uL (0.0-0.8); MONO % 7.3 % (0.0-5.0); NEUTROPHILS # 4.3 10^3/uL (1.5-8.5); NEUTROPHILS % 57.6 % (36.0-66.0); PLATELET COUNT, AUTOMATED 325 10^3/uL (150-450); RED BLOOD COUNT 4.34 10^6/uL (4.00-5.40); WHITE BLOOD COUNT 7.5 10^3/uL (4.0-10.0)
[2020-02-22 16:19] LABS: CREATININE,RANDOM URINE 16.5 MG/DL; TOTAL PROTEIN,RANDOM URINE < 5.0 MG/DL (0.0-12.0)
[2020-02-22 16:21] LABS: ALBUMIN 3.7 GM/DL (3.2-5.2); ALT/SGPT 26 U/L (12-78); BILIRUBIN,TOTAL 0.3 MG/DL (0.2-1.0); BLOOD UREA NITROGEN 10 MG/DL (7-18); CALCIUM LEVEL 8.7 MG/DL (8.5-10.1); CARBON DIOXIDE LEVEL 29 MEQ/L (21-32); CHLORIDE LEVEL 106 MEQ/L (98-107); COMPLEMENT C3 90 MG/DL (90-180); COMPLEMENT C4 17 MG/DL (10-40); CREATININE FOR GFR 0.77 MG/DL (0.55-1.30); GLOMERULAR FILTRATION RATE > 60.0 (>58); GLUCOSE, FASTING 90 MG/DL (70-100); POTASSIUM SERUM 3.7 MEQ/L (3.5-5.1); SODIUM LEVEL 141 MEQ/L (136-145); TOTAL PROTEIN 6.5 GM/DL (6.4-8.2)
[2020-02-22 16:52] LABS: ERYTHROCYTE SEDIMENTATION RATE 3 mm/hr (0-20)
== END ==
LOC: M LAB 15:22
PROVIDERS: ATTEND Internal Medicine
DX: M32.9 Systemic lupus erythematosus, unspecified (principal)

== ENCOUNTER → 2020-05-10 | Outpatient (REF) | payer MEDICARE, MEDICAID ==
[~2020-05-10] MED LIST changes: -CLIN150C14 PO; +CLIN150C15 PO; +MONT10TA10 PO; -MONT5TAB2 PO
== END ==
LOC: M SFHCWAGY 17:04
PROVIDERS: ATTEND Nurse Practitioner Women's Health
DX: Z12.4 Encounter for screening for malignant neoplasm of cervix (principal); R87.610 Atypical squamous cells of undetermined significance on cytologic smear of cervix (ASC-US)
CPT/HCPCS: 87624; G0123; G0463

== ENCOUNTER → 2020-05-28 | Outpatient (CLI) | payer MEDICARE, MEDICAID ==
--- NOTE | 2020-05-28 11:58 | REPMRS ---
Patient History The patient states she had a clinical breast exam in May 2020. Family history of breast cancer under age 50 in maternal aunt, prostate cancer in paternal grandfather. Digital Woman Screen Mammo: May 28, 2020 - Exam #: [id number] Bilateral CC and MLO view(s) were taken. Technologist: Sue Fang, Technologist Prior study comparison: April 12, 2019, bilateral digital woman screen mammo performed at [facility] [place]. FINDINGS: The breast tissue is heterogeneously dense. This may lower the sensitivity of mammography. The Volpara volumetric breast density category is: C. There is a moderate amount of heterogeneously dense fibroglandular tissue which is fairly symmetric. There is no interval development of dominant mass, architectural distortion, or grouped microcalcification typical of malignancy. There has been no change in the appearance of the mammogram from the prior studies. 3-D tomosynthesis shows no additional findings. Assessment: BI-RADS/ACR category 1 mammogram. Negative Mammogram. Recommendation Breast MRI of both breasts in 6 months. Routine screening mammogram of both breasts in 1 year (for women over age 40). This patient's [facility] Lifetime Breast Cancer RIsk is estimated at 21.0 %. Annual screening Breast MRI scanniing is recommended for patient's whose lifetime risk assessment is over 20%. This mammogram was interpreted with the aid of an FDA-approved computer-aided dectection system. Electronically Signed By: Riley Gomez MD 05/28/20 [id number]
== END ==
LOC: M WHC 10:28
PROVIDERS: ATTEND Nurse Practitioner Women's Health
DX: Z12.31 Encounter for screening mammogram for malignant neoplasm of breast (principal)

== ENCOUNTER 2020-06-15 19:31 | Emergency (ER) | payer MEDICARE, MEDICAID ==
[~2020-06-15] VITALS: Ht 157.5 cm; Wt 66.4 kg
[~2020-06-15 19:31] MED LIST changes: -BUPR75TA5; +BUPR75TA5 PO; -PROP20TA72; +PROP20TA72 PO
--- NOTE | 2020-06-15 22:30 | REPVR ---
PROCEDURE INFORMATION: Exam: CT Abdomen And Pelvis Without Contrast Exam date and time: 06/15/2020 9:53 PM Age: 44 years old Clinical indication: Abdominal pain; Flank; Lower; Additional info: Flank pain, hematuria R/O stone TECHNIQUE: Imaging protocol: Computed tomography of the abdomen and pelvis without contrast. Axial, coronal and sagittal reformatted images were created and reviewed. Radiation optimization: All CT scans at this facility use at least one of these dose optimization techniques: automated exposure control; mA and/or kV adjustment per patient size (includes targeted exams where dose is matched to clinical indication); or iterative reconstruction. COMPARISON: CT ABD/PEL W/IV CONTRAST ONLY 04/25/2019 9:52 PM FINDINGS: Liver: Unremarkable. Gallbladder and bile ducts: No radiodense gallstones. No biliary ductal dilatation. Pancreas: Unremarkable. Spleen: Unremarkable. Adrenal glands: Normal. No mass. Kidneys and ureters: No mass. No radiodense calculi. No hydronephrosis. Stomach and bowel: Moderate amount of retained stool in the colon. No obstruction. No bowel wall thickening. No pneumatosis. Appendix: Normal. Intraperitoneal space: Trace nonspecific free pelvic fluid, likely physiologic. No organized fluid collection. No free air. Vasculature: Unremarkable. No aneurysm. Lymph nodes: No pathologically enlarged lymph nodes. Urinary bladder: Unremarkable as visualized. Reproductive: 6.9 x 3.6 cm complex right adnexal cystic lesion versus 2 adjacent cysts. Bones/joints: No acute osseous abnormality. Mild degenerative changes. Soft tissues: Unremarkable. IMPRESSION: 1. 6.9 x 3.6 cm complex right adnexal cystic lesion versus 2 adjacent cysts. If clinically indicated, pelvic ultrasound may be obtained for further evaluation. 2. Additional findings, as above. Electronically signed by: Rao Davidson On 06/15/2020 22:30:43 PM
[2020-06-15 22:43] VITALS: BP 113/73
[2020-06-15] MEDS ORDERED: MACR100C43 PO (22:53)
[2020-06-15] MEDS ORDERED: NITROFURANTOIN (MACROBID) 100 MG CAP PO ONE (23:00)
== END 2020-06-15 23:12 | disposition home or self-care (01) ==
LOC: M ED 19:31
DX: R30.0 Dysuria (principal); N83.201 Unspecified ovarian cyst, right side; Z79.51 Long term (current) use of inhaled steroids; Z79.82 Long term (current) use of aspirin; Z79.899 Other long term (current) drug therapy; Z88.1 Allergy status to other antibiotic agents; Z88.2 Allergy status to sulfonamides; Z91.040 Latex allergy status; Z88.6 Allergy status to analgesic agent; Z88.8 Allergy status to other drugs, medicaments and biological substances

== ENCOUNTER 2020-06-20 11:01 | Observation (INO) | payer MEDICARE, MEDICAID ==
[~2020-06-20] VITALS: Ht 157.5 cm; Wt 65.5 kg
[2020-06-20] MEDS: HYDROXYCHLOROQUINE 200 MG TAB PO SCH (03:20)
[2020-06-20] MEDS: PROPRANOLOL 20 MG TAB PO SCH (03:20)
[2020-06-20] MEDS: FLUTICASONE PROP 0.05% NASAL SPRAY 16 GM (FLONASE) SCH (03:20)
[~2020-06-20 11:01] MED LIST changes: +MACR100C43 PO
[2020-06-20] MEDS ORDERED: NS 500 ML IV ONE (12:25)
[2020-06-20] MEDS ORDERED: diphenhydrAMINE 50MG/ML VIAL (J1200) IV STA (12:25)
--- NOTE | 2020-06-20 12:49 | REP ---
INDICATION: left sided facial numbness. COMPARISON: None. TECHNIQUE: Axial CT images with multiplanar reformations. FINDINGS: No acute bleed or acute large vessel territorial infarct. Ventricles, cisterns and sulci are within normal limits. No mass effect or midline shift. No abnormal fluid collections. Paranasal sinuses and mastoid air cells are clear IMPRESSION: No acute findings. <Electronically signed by Mathieu Morales > 06/20/20 [id number]
[2020-06-20 13:06] LABS: BASO % 0.5 % (0.0-1.0); EOS # 0.2 10^3/uL (0.0-0.5); EOS % 3.2 % (0.0-3.0); HEMATOCRIT 34.5 % (36.0-47.0); HEMOGLOBIN 10.8 g/dl (12.0-15.5); LYMPH # 1.6 10^3/uL (1.5-5.0); LYMPH % 25.7 % (24.0-44.0); MEAN CORPUSCULAR HEMOGLOBIN 25.7 pg (27.0-33.0); MEAN CORPUSCULAR HGB CONC 31.3 g/dl (32.0-36.5); MEAN CORPUSCULAR VOLUME 82.1 fl (80.0-96.0); MONO # 0.4 10^3/uL (0.0-0.8); MONO % 6.9 % (2.0-8.0); NEUTROPHILS # 3.9 10^3/uL (1.5-8.5); NEUTROPHILS % 63.4 % (36.0-66.0); PLATELET COUNT, AUTOMATED 290 10^3/uL (150-450); WHITE BLOOD COUNT 6.2 10^3/uL (4.0-10.0)
[2020-06-20 13:33] LABS: ALBUMIN 3.4 GM/DL (3.2-5.2); ALT/SGPT 22 U/L (12-78); BILIRUBIN,DIRECT 0.1 MG/DL (0.0-0.2); BILIRUBIN,TOTAL 0.3 MG/DL (0.2-1.0); BLOOD UREA NITROGEN 11 MG/DL (7-18); CALCIUM LEVEL 9.5 MG/DL (8.5-10.1); CARBON DIOXIDE LEVEL 29 MEQ/L (21-32); CHLORIDE LEVEL 107 MEQ/L (98-107); CREATININE FOR GFR 0.67 MG/DL (0.55-1.30); FREE T4 0.95 NG/DL (0.76-1.46); GLOMERULAR FILTRATION RATE > 60.0 (>58); GLUCOSE, FASTING 95 MG/DL (70-100); LIPASE 171 U/L (73-393); MAGNESIUM LEVEL 2.1 MG/DL (1.8-2.4); POTASSIUM SERUM 3.9 MEQ/L (3.5-5.1); SODIUM LEVEL 141 MEQ/L (136-145); TOTAL PROTEIN 6.2 GM/DL (6.4-8.2)
[2020-06-20 13:35] LABS: TOTAL 25(OH) VITAMIN D 65.4 NG/ML (30.0-100.0); VITAMIN B12 LEVEL 953 PG/ML (247-911)
--- NOTE | 2020-06-20 13:35 | REP ---
INDICATION: CHEST PAIN. COMPARISON: 04/25/2019 TECHNIQUE: Portable FINDINGS: The technique utilized in obtaining the radiograph has magnified the cardiac silhouette and accentuated the interstitial markings. The superior mediastinal structures are midline. The cardiac silhouette is unremarkable in size, shape, and position. The diaphragmatic surfaces of the lungs are regular, and the costophrenic angles are clear. The pulmonary mir are clear. The imaged osseous structures are intact. IMPRESSION: There is no acute cardiopulmonary disease. <Electronically signed by Jeffrey Daley > 06/20/20 [id number]
[2020-06-20 13:36] LABS: FOLATE 7.7 NG/ML (>5.4)
[2020-06-20] MEDS ORDERED: HEPARIN DRIP 25,000 UNITS in IV 1 EA IV SCH ×2 (16:00→16:05)
[2020-06-20] MEDS ORDERED: ASPIRIN 81 MG CHEW TABLET PO ONE (16:05)
[2020-06-20] MEDS ORDERED: NITROGLYCERIN 0.4 MG SUBL TABLET SL PRN (16:05)
[2020-06-20] MEDS ORDERED: HEPARIN SOD (PORCINE) 5000UNITS/ML 1ML VIAL/SYRINGE IV ONE (16:05)
[2020-06-20] MEDS ORDERED: CLOPIDOGREL 300 MG TAB (PLAVIX) PO ONE (16:05)
[2020-06-20 16:41] LABS: INR 0.99; PROTHROMBIN TIME 13.3 SECONDS (12.5-14.3)
[2020-06-20 16:42] LABS: PARTIAL THROMBOPLASTIN TIME 28.2 SECONDS (24.2-38.5)
[2020-06-20] MEDS ORDERED: LEVOTAB10 PO (20:03)
[2020-06-20] MEDS ORDERED: METH-1022 PO (20:03)
[2020-06-20] MEDS ORDERED: BACL10TA2 PO (20:03)
[2020-06-20] MEDS ORDERED: D31000TA2 PO (20:03)
[2020-06-20] MEDS ORDERED: VENTAER INH (20:03)
[2020-06-20] MEDS ORDERED: FLUO20CA22 PO (20:03)
[2020-06-20] MEDS ORDERED: HM P99TA PO (20:03)
[2020-06-20] MEDS ORDERED: FLUO10CA16 PO (20:03)
[2020-06-20] MEDS ORDERED: NS 1,000 ML IV ONE (20:10)
[2020-06-20] MEDS ORDERED: MOM 30ML SUSPENSION UDC PO PRN (20:10)
[2020-06-20] MEDS ORDERED: MAALOX 30 ML SUSP *UDC PO PRN (20:10)
[2020-06-20] MEDS ORDERED: ALBUTEROL 90 MCG/ACT 8GM HFA INHALER INH PRN (20:10)
[2020-06-20] MEDS ORDERED: ACETAMINOPHEN TAB 650MG DOSE (2X325MG) PO PRN (20:10)
[2020-06-20] MEDS ORDERED: POLYVINYL ALCOHOL OPHTH SOLN 15 ML(LIQUITEARS) OU PRN (20:10)
[2020-06-20] MEDS ORDERED: BACLOFEN 10 MG TAB PO PRN (20:10)
[2020-06-20] MEDS ORDERED: CETIRIZINE (ZyrTEC) 10 MG TAB PO SCH (21:00)
--- NOTE | 2020-06-20 21:09 | HPEPDOC ---
[facility] Medical History & Physical Date of Admission Jun 20, 2020 Date of Service: Jun 20, 2020 Primary Care Physician: JOSE RAUL BRAXTON MD Attending Physician: DANN ALFONSO MD History and Physical CHIEF COMPLAINT: [45 y/o female c/o left sided paresthesias of face, arm and leg.] HISTORY OF PRESENT ILLNESS: [This is a 45 y/o female with a pmh of SLE, HTN, and remote hx of Thapa Lenard syndrome who reported to the ED today after experiencing acute onset "tingling and twitching" of the left side of her face that then evolved into also including her left shoulder and arm and eventually left leg. Patient also endorses some chest discomfort on the left side that she describes as a "dull, achey feeling." Patient states that the chest pain is static and in one spot on the left side of her chest. Patient states that she has never had this chest pain before. Patient admits to having some peripheral neuropathy in her legs and feet, but states that the symptoms she has been experiencing today are different. Patient denies sob, syncope, dizziness, lightheadedness, nausea, vomiting. Patient recently diagnosed with UTI on 06/15 and was prescribed macrobid which she only took until 06/17. Patient states that she is worried these symptoms may be another bout of SJS so called her primary provider who told her to report to the ED for evaluation. Patient admits to having some fevers which resolved with tylenol and some general malaise for the past two days. Patient denies cough, constipation, diarrhea, chills. Patient states that she has seen a employment training specialist in the past as she endorses a history of palpitations. Patient says the workup was several years ago and she is not sure she remembers exactly what came of it. Of note, patient found to have elevated troponin of 0.15 in ED. ] PAST MEDICAL HISTORY: 1. [See HPI PAST SURGICAL HISTORY: 1. []. SOCIAL HISTORY: Resides in: [Home] Children: [One] Employment: [Disabled] Tobacco use:[Former, thinks smoked for perhaps 15 years] ETOH: [Denies] Illicit drug use: [Denies] FAMILY HISTORY: Mother: [Unspecified heart disease] ALLERGIES: Please see below. REVIEW OF SYSTEMS: CONSTITUTIONAL: [See HPI]. HEENT: [Admits to dull headache. Rest, See HPI]. CARDIOVASCULAR: [See HPI]. RESPIRATORY: [See HPI]. GASTROINTESTINAL: [See HPI]. GENITOURINARY: [Denies dysuria, hematuria]. SKIN: [Denies rash]. MUSCULOSKELETAL: [Admits to mild joint pain, stiffness]. NEUROLOGICAL: [See HPI]. ENDOCRINE: [Denies DM]. HEMATOLOGIC/LYMPHATIC: [Denies easy bruising]. HOME MEDICATIONS: Please see below. PHYSICAL EXAMINATION: VITAL SIGNS: Please see below GENERAL APPEARANCE: [This is a chronically ill appearing 45 y/o female. She is lying in bed comfortably in no acute distress.]. HEENT: [Some scarring of the forehead. No mass or lesions. EOMI. No scleral icterus of conjunctival erythema. Nares patent. Oral mucosa moist without erythema]. CARDIOVASCULAR: [Slightly alec rate, normal rhythm. No murmurs, rubs or gallop s. Several PVC's noticed on tele during exam.]. LUNGS: [Good air flow auscultated. No wheezing, rales, rhonchi.]. ABDOMEN: [Soft, non-tender]. MUSCULOSKELETAL: [No joint deformity]. EXTREMITIES: [No peripheral edema appreciated. No clubbing, cyanosis. Pulses intact.]. NEUROLOGICAL: [Sensation decreased in b/l lower extremities. Strength rated as 5/5 in extremities b/l. Speech clear. A+Ox3. No focal deficits]. PSYCHIATRIC: [Depressed mood. Affect appears appropriate.]. LABORATORY DATA: See below. IMAGING: [Chest x-ray: FINDINGS: The technique utilized in obtaining the radiograph has magnified the cardiac silhouette and accentuated the interstitial markings. The superior mediastinal structures are midline. The cardiac silhouette is unremarkable in size, shape, and position. The diaphragmatic surfaces of the lungs are regular, and the costophrenic angles are clear. The pulmonary mir are clear. The imaged osseous structures are intact. IMPRESSION: There is no acute cardiopulmonary disease. Head CT: FINDINGS: No acute bleed or acute large vessel territorial infarct. Ventricles, cisterns and sulci are within normal limits. No mass effect or midline shift. No abnormal fluid collections. Paranasal sinuses and mastoid air cells are clear IMPRESSION: No acute findings.] MICROBIOLOGY: Please see below. ASSESSMENT: [This is a 45 y/o female with a pmh of SLE, HTN and remote hx of SJS. Patient presents to the ED today after developing acute onset left sided paresthesias and chest discomfort. Patient has never experienced these symptoms before and have not acutely resolved in the ED. Troponin found to be elevated with unimpressive EKG. Plavix and heparin drip started by the ED. Heparin drip was eventually dc'ed. Due to patient's history of SLE and her higher likelihood of adverse cardiac outcomes d/t embolus, we will perform full TIA workup. I am concerned at this point that patient may have some underlying paroxysmal arrhythmia that could be causing the majority of her symptoms d/t past history of palpitations and murmurs. ]. . PLAN: 1. [Left sided paresthesias - CT head found to be negative in ED. Patient at this time does not seem to be experiencing any residual hemiparesis or left sided weakness. Patient is not dysarthric. Stroke seems unlikely at this time. TIA will need to be r/o - MRI brain ordered - Cardiac risk profile, A1C ordered to identify any other cardiac risks patient may have - Will admit under obs to med surg with tele 2. Chest discomfort - Potentially NSTEMI, however unlikely. Patient had one elevated troponin of 0.15 with the repeat being negative. - Patient endorses a history of palpitations, and is slightly bradycardic in the ED. I am worried patient may be having paroxysmal rhythm that could be cause of sx - Will trend troponin q6h - Patient given plavix, heparin in the ED - Will monitor sx, patient on tele, as stated - Patient should follow up with cards for further workup o/p - nitro ordered 3. SLE - Lupus flare is another potential cause of her symptoms, though nstemi/tia need to be r/o first - Continue plaquenil, baclofen - Tylenol for pain d/t allergy to nsaids - Will trend crp - Ordered lola, dsdna - Can consider steroids once other pathology has been r/o 4. HTN - continue propranolol 5. Depression - continue fluoxetine, bupropion 6. Asthma - continue singulair, albuterol, montelukast, cetirizine 7. GERD - continue omeprazole 8. DVT prophylaxis - Teds and sequentials for now]. Vital Signs Vital Signs Date Time Temp Pulse Resp B/P (MAP) Pulse Ox O2 Delivery O2 Flow Rate FiO2 4/14/21 20:00 122/67 (85) 06/20/20 19:57 67 99 06/20/20 11:03 99.3 18 Room Air Laboratory Data Labs 24H Laboratory Tests 2 06/20/20 12:51: Immature Granulocyte % (Auto) 0.3, Neutrophils (%) (Auto) 63.4, Lymphocytes (%) (Auto) 25.7, Monocytes (%) (Auto) 6.9, Eosinophils (%) (Auto) 3.2H, Basophils (%) (Auto) 0.5, Neutrophils # (Auto) 3.9, Lymphocytes # (Auto) 1.6, Monocytes # (Auto) 0.4, Eosinophils # (Auto) 0.2, Basophils # (Auto) 0.0, Nucleated Red Blood Cells % (auto) 0.0, Anion Gap 5L, Glomerular Filtration Rate > 60.0, Calcium Level 9.5, Magnesium Level 2.1, Total Bilirubin 0.3, Direct Bilirubin 0.1, Aspartate Amino Transf (AST/SGOT) 15, Alanine Aminotransferase (ALT/SGPT) 22, Alkaline Phosphatase 52, Total Protein 6.2L, Albumin 3.4, Albumin/Globulin Ratio 1.2, Lipase 171, Vitamin B12 Level 953H, 25-Hydroxy Vitamin D Total 65.4, Folate 7.7, Thyroid Stimulating Hormone (TSH) 1.440, Free Thyroxine 0.95 06/20/20 12:55: POC Troponin I (Misc) 0.00 06/20/20 15:37: POC Troponin I (Misc) 0.15H 06/20/20 16:20: Prothrombin Time 13.3, Prothromb Time International Ratio 0.99, Activated Partial Thromboplast Time 28.2 06/20/20 17:24: POC Troponin I (Misc) 0.00 CBC/BMP Laboratory Tests 06/20/20 12:51 Microbiology Microbiology 06/20/20 Respiratory Virus Panel (PCR) ([facility]) - Final, Complete Home Medications Scheduled Aspirin (Aspirin EC) 81 Mg Tab, 81 MG PO DAILY Baclofen (Baclofen) 10 Mg Tab, 10 MG PO TID Bupropion HCl (Bupropion HCl) 75 Mg Tablet, 37.5 MG PO DAILY Cholecalciferol (Vitamin D3) (Vitamin D3) 1,000 Unit Tablet, 1,000 UNITS PO DAILY Ferrous Sulfate (Ferrous Sulfate) 325 Mg Tablet.dr, 325 MG PO Q3RD Fluoxetine Hcl (Fluoxetine HCl) 10 Mg Capsule, 10 MG PO DAILY 30MG TOTAL DAILY Fluoxetine Hcl (Fluoxetine HCl) 20 Mg Capsule, 20 MG PO DAILY TOTAL 30 MG DOSE Fluticasone Propionate (Flonase Allergy Relief) 9.9 Ml [place].susp, 1 SPRAY NA BID Hydroxychloroquine Sulfate (Hydroxychloroquine Sulfate) 200 Mg Tab, 200 MG PO BID Levocetirizine Dihydrochloride (Levocetirizine Dihydrochloride) 5 Mg Tablet, 5 MG PO QHS Montelukast Sodium (Montelukast Sodium) 10 Mg Tab, 10 MG PO DAILY Omeprazole (Omeprazole) 40 Mg Cap, 40 MG PO BID Potassium Gluconate (Potassium) 99 Mg Tablet, 595 MG PO BID Propranolol HCl (Propranolol HCl) 20 Mg Tablet, 20 MG PO BID Scheduled PRN Albuterol Sulfate (Ventolin Hfa) 18 Gm Hfa.aer.ad, 2 PUFF INH QID PRN for SHORTNESS OF BREATH Baclofen (Baclofen) 10 Mg Tablet, 10 MG PO DAILY PRN for SPASMS Methylphenidate HCl (Methylphenidate HCl) 10 Mg Tablet, 10 MG PO DAILY PRN for ATTENTION Polyvinyl Alcohol (Akwa Tears) 1.4 % Yolanda, 2 DROP OP Q4HP PRN for DRY EYES Allergies Coded Allergies: Sulfa (Sulfonamide Antibiotics) (Verified Allergy, Severe, THAPA LENARD SYNDROME, 05/04/19) ibuprofen (Verified Allergy, Severe, ABDULAZIZ'S LENARD'S SYNDROME, 05/04/19) naproxen (Verified Allergy, Severe, THAPA LENARD SYNDROME, 05/04/19) amoxicillin (Verified Allergy, Intermediate, HIVES, 05/04/19) latex (Verified Allergy, Mild, RASH, 05/04/19) Uncoded Allergies: ANTICONVULSANT (Allergy, Severe, Thapa-Lenard Syndrome, 05/04/19) A-FIB/CHADSVASC A-FIB History Current/History of A-Fib/PAF?: No Attending Note Attending Note time of service 835pm Ms. Valadez is a 45 yr old former smoker w a hx of SLE, HTN, Depression, Endometriosis, Asthma, and hx of Abdulaziz Johnsons syndrome who presented w c/o left facial and arm twitching generalized malaise and ankle pain; CT of the head was negative, but 1 of her troponins was slightly elevated. She will be admitted to complete the stroke work-up and to r/o ACS. She has an appointment to establish care with a Tube Sizer And Cutter Operator on July 03. Rest per TONY Mejia's H&P ERNA MEJIA Jun 20, 2020 21:09 DANN ALFONSO MD Jun 21, 2020 01:37
[2020-06-20] MEDS: BACLOFEN 10 MG TAB PO SCH (21:11)
[2020-06-20] MEDS: DOCUSATE SODIUM 100MG CAPSULE PO SCH (21:11)
[2020-06-20] MEDS: OMEPRAZOLE 20 MG CAP PO SCH (21:11)
[2020-06-20 21:45] LABS: CHOLESTEROL LEVEL 189 MG/DL (<200); CHOLESTEROL RISK RATIO 2.054 (<5); HDL CHOLESTEROL 92 MG/DL (>40); LDL CHOLESTEROL 90 MG/DL (<100); NON-HDL-C 97 MG/DL; TRIGLYCERIDES LEVEL 34 MG/DL (<150)
[2020-06-20 21:53] LABS: HEMOGLOBIN A1c 5.7 %
--- NOTE | 2020-06-20 22:03 | REPVR ---
PROCEDURE INFORMATION: Exam: MR Head Without Contrast Exam date and time: 06/20/2020 8:09 PM Age: 45 years old Clinical indication: Numbness / parasthesia; Left; Additional info: TIA R/O TECHNIQUE: Imaging protocol: MR of the head without contrast. COMPARISON: CT Head without contrast 06/20/2020 12:40 PM FINDINGS: Brain: Scattered foci T2 lengthening demonstrated in the subcortical, centrum semiovale and periventricular white matter. Otherwise unremarkable. No evidence of acute ischemia. Cerebral ventricles: Normal. No ventriculomegaly. Bones/joints: Unremarkable. Paranasal sinuses: Normal as visualized. No acute sinusitis. Mastoid air cells: Normal as visualized. No mastoid effusion. Orbital cavity: Unremarkable. Soft tissues: Unremarkable. IMPRESSION: Scattered foci T2 lengthening demonstrated in the subcortical, centrum semiovale and periventricular white matter. Findings are nonspecific. Electronically signed by: Ronak Mendez On 06/20/2020 22:04:18 PM
[2020-06-21] MEDS ORDERED: PILL CUTTER 1 EACH XX PRN (03:40)
[2020-06-21 04:00] VITALS: BP 143/84
[2020-06-21 05:43] LABS: HEMATOCRIT 30.7 % (36.0-47.0); HEMOGLOBIN 9.5 g/dl (12.0-15.5); MEAN CORPUSCULAR HEMOGLOBIN 25.3 pg (27.0-33.0); MEAN CORPUSCULAR HGB CONC 30.9 g/dl (32.0-36.5); MEAN CORPUSCULAR VOLUME 81.6 fl (80.0-96.0); PLATELET COUNT, AUTOMATED 240 10^3/uL (150-450); RED BLOOD COUNT 3.76 10^6/uL (4.00-5.40); WHITE BLOOD COUNT 6.4 10^3/uL (4.0-10.0)
[2020-06-21 06:20] LABS: ALT/SGPT 15 U/L (12-78); BILIRUBIN,TOTAL 0.4 MG/DL (0.2-1.0); BLOOD UREA NITROGEN 9 MG/DL (7-18); CALCIUM LEVEL 8.2 MG/DL (8.5-10.1); CARBON DIOXIDE LEVEL 24 MEQ/L (21-32); CHLORIDE LEVEL 108 MEQ/L (98-107); CHOLESTEROL LEVEL 161 MG/DL (<200); CHOLESTEROL RISK RATIO 2.118 (<5); CREATININE FOR GFR 0.58 MG/DL (0.55-1.30); GLOMERULAR FILTRATION RATE > 60.0 (>58); GLUCOSE, FASTING 74 MG/DL (70-100); HDL CHOLESTEROL 76 MG/DL (>40); LDL CHOLESTEROL 72 MG/DL (<100); NON-HDL-C 85 MG/DL; SODIUM LEVEL 140 MEQ/L (136-145); TOTAL PROTEIN 5.5 GM/DL (6.4-8.2); TRIGLYCERIDES LEVEL 67 MG/DL (<150); TROPONIN I < 0.02 NG/ML (< 0.10)
[2020-06-21 07:26] VITALS: BP 106/57
[2020-06-21] MEDS ORDERED: POTASSIUM CHLORIDE 10 MEQ SR TABLET PO SCH (08:15)
[2020-06-21] MEDS ORDERED: FERROUS SULFATE 325MG TAB PO SCH (09:00)
[2020-06-21] MEDS ORDERED: ASPIRIN 81MG ENTERIC TABLET PO SCH (09:00)
[2020-06-21] MEDS ORDERED: FLUoxetine 20 MG CAP PO SCH (09:00)
[2020-06-21] MEDS ORDERED: buPROPion 75 MG TAB PO SCH (09:00)
[2020-06-21] MEDS ORDERED: FLUoxetine 10 MG CAP PO SCH (09:00)
[2020-06-21] MEDS ORDERED: MONTELUKAST 10 MG TAB PO SCH (09:00)
[2020-06-21] MEDS ORDERED: VITAMIN D 1,000 INTERNATIONAL UNITS TABLET PO SCH (09:00)
[2020-06-21] MEDS: FLUTICASONE PROP 0.05% NASAL SPRAY 16 GM (FLONASE) SCH (09:43)
[2020-06-21] MEDS: DOCUSATE SODIUM 100MG CAPSULE PO SCH (09:44)
[2020-06-21] MEDS: HYDROXYCHLOROQUINE 200 MG TAB PO SCH (09:45)
[2020-06-21] MEDS: OMEPRAZOLE 20 MG CAP PO SCH (09:45)
[2020-06-21 09:46] VITALS: BP 106/57
[2020-06-21] MEDS: PROPRANOLOL 20 MG TAB PO SCH (09:46)
[2020-06-21] MEDS: BACLOFEN 10 MG TAB PO SCH (09:46)
--- NOTE | 2020-06-21 10:10 | ECGEPIP ---
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
--- NOTE | 2020-06-21 10:12 | ECGEPIP ---
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
--- NOTE | 2020-06-21 10:14 | ECGEPIP ---
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
[2020-06-21] MEDS ORDERED: ROSU10TA6 PO (10:42)
--- NOTE | 2020-06-21 15:52 | DS.PDOC ---
Discharge Summary General Date of Admission Jun 20, 2020 at 11:02 Date of Discharge 06/21/2020 Primary Care Physician: SCOTT JOHNSON DO Attending Physician: VALDO GAMEZ MD Discharge Summary PROCEDURES PERFORMED DURING STAY: [None]. ADMITTING DIAGNOSES: 1. Left sided paresthesias 2. Chest discomfort 3. SLE 4. HTN 5. Depression 6. Asthma 7. GERD DISCHARGE DIAGNOSES: 1. Left sided paresthesias 2. Chest discomfort 3. SLE 4. HTN 5. Depression 6. Asthma 7. GERD COMPLICATIONS/CHIEF COMPLAINT: Chest Pain/Paresthesia Of Left Arm And Leg. HISTORY OF PRESENT ILLNESS: This is a 45 y/o F with Hx of SLE, HTN, and remote hx of Thapa Lenard syndrome who reported to the ED complaining of left sided twitching, paresthesia and numbness. Her symptoms started on 06/19 (Tue) when she woke up with left facial twitching that progressed to the left side of her body. She woke up the next day and noticed her symptom was complicated with paresthesia and numbness on the left side of the body, prompting patient to call her PCP, who advised her to visit the ED for evaluation on 06/20. Patient reported associated central chest pressure described as "dull and achy" without radiation. However, she denied associated cough, SOB, vomiting, dizziness, but noted diarrhea (3 episodes on 06/20 morning), nausea, lower abd discomfort and mild fever with Tmax of 100.4 for the past 2 days that was managed with Tylenol. Of note, patient reported she was seen outpatient for her dysuria, she was dx with UTI and given 5 day course of macrobid. Patient stopped taking her Abx due acute onset of her facial twitching due to hx of SJS. Her dysuria has resolved after Abx treatment but she continues to have mild lower abd discomfort. HOSPITAL COURSE: In the ED, patient's workup was significant for a transient elevated Trop of 0.15. Her EKG, CXR and head CT were unremarkable. She received heparin gtt, clopidogrel, ASA and NTG in the ED given her elevated trop. Patient was admitted for TIA workup and trop trending. Upon admission, patient was found hypokalemic (3.0) and her potassium was repleted with oral potassium. Her lipid panel, thyroid panel, COVID+ RSV panel, B12 and folate levels were unremarkable. Patient's A1c was 5.7. It appears that her trop elevation in the ED was falsely elevated and patient's trop were trended and negative x4. Her overnight telemetry revealed no acute event and her brain MRI was negative for acute ischemia. Given negative trop and stable telemetry, cardiac workup was not performed during the admission. Given negative stroke workup, patient was deemed stable for discharge with outpatient follow up for her paresthesia with continuation of her home regimen. She was also started on rosuvastatin 10 mg QD and 81mg ASA for TIA. Patient will require outpatient work up for her paresthesia. At the day of discharge, patient continues to have L sided paresthesia on the face and arm, nausea, chest tightness and mild lower abdom inal discomfort. However, she denied fever, chills, V/D, SOB and urinary symptoms. She reported that she was able to ambulate to the restroom without dizziness or weakness. DISCHARGE MEDICATIONS: Please see below. ALLERGIES: Please see below. PHYSICAL EXAMINATION ON DISCHARGE: VITAL SIGNS: See below GENERAL APPEARANCE: Revealed 45 y/o F who appears at stated age, laying supine with head of bed elevated, alert & oriented, in no Acute Distress. HEENT Exam: Normocephalic and atraumatic, PERRLA, conjunctiva & lids normal, EOMI, without sclera icteric, mucous membr. moist/pink, pharynx normal, nares patent. NECK: Supple without lymphadenopathy, JVD, thyromegaly LUNGS: Clear to auscultation bilaterally with full breath sounds without rales, wheezing, and crackles. CARDIOVASCULAR: Regular rate and rhythm, normal S1 & S2 without gallops, murmurs, rubs. ABDOMEN: Soft, non-distended with normal bowel sounds. Mildly tender to palpation in the suprapubic area. No masses or ecchymosis or hepatosplenomegaly. EXTREMITIES: 2+ pulses in all extremities. No clubbing, cyanosis, edema, tenderness SKIN: Normal turgor and temperature. No rash, lesion MUSCULOSKELETAL: Strength +5/5 in all extremities without tenderness. NEUROLOGICAL: Normal speech with intact sensation, cranial nerves III-XII normal, reflexes 2+. No signs of gross focal neurologic deficit. PSYCHIATRIC: Normal mood and affect LABORATORY DATA: Please see below. IMAGIN. PORTABLE CHEST X-RAY 06/20 IMPRESSION: There is no acute cardiopulmonary disease. 2. CT Head without contrast 06/20 IMPRESSION: No acute findings. 3. MRI-Brain without Contrast 06/20 IMPRESSION: Scattered foci T2 lengthening demonstrated in the subcortical, centrum semiovale and periventricular white matter. Findings are nonspecific. PROGNOSIS: Fair ACTIVITY: As tolerated DIET: Regular DISPOSITION: Discharge home DISCHARGE INSTRUCTIONS: 1. Please follow up with Dr. Schaffer at [facility] on 06/28 1:30pm. [phone] 2. Please return to the ED if your symptoms worsen or if you develop new symptoms. ITEMS TO FOLLOWUP ON ON OUTPATIENT: 1. Anti-DIXON and Anti dsDNA DISCHARGE CONDITION: Stable TIME SPENT ON DISCHARGE: Greater than 30 minutes. Vital Signs/I&Os Vital Signs Date Time Temp Pulse Resp B/P (MAP) Pulse Ox O2 Delivery O2 Flow Rate FiO2 06/21/20 09:46 66 106/57 06/21/20 07:26 97.5 18 98 Room Air I&O- Last 24 Hours up to 6 AM 06/21/20 06:00 Intake Total 1315 ml Output Total 250 ml Balance 1065 ml Laboratory Data Labs 24H Laboratory Tests 2 06/20/20 12:51: Immature Granulocyte % (Auto) 0.3, Neutrophils (%) (Auto) 63.4, Lymphocytes (%) (Auto) 25.7, Monocytes (%) (Auto) 6.9, Eosinophils (%) (Auto) 3.2H, Basophils (%) (Auto) 0.5, Neutrophils # (Auto) 3.9, Lymphocytes # (Auto) 1.6, Monocytes # (Auto) 0.4, Eosinophils # (Auto) 0.2, Basophils # (Auto) 0.0, Nucleated Red Bl ood Cells % (auto) 0.0, Anion Gap 5L, Glomerular Filtration Rate > 60.0, Estimated Mean Plasma Glucose 117H, Hemoglobin A1c 5.7, Calcium Level 9.5, Magnesium Level 2.1, Total Bilirubin 0.3, Direct Bilirubin 0.1, Aspartate Amino Transf (AST/SGOT) 15, Alanine Aminotransferase (ALT/SGPT) 22, Alkaline P hosphatase 52, Total Protein 6.2L, Albumin 3.4, Albumin/Globulin Ratio 1.2, Triglycerides Level 34, Total Cholesterol 189, LDL Cholesterol 90, Non-HDL Cholesterol (LDL + VLDL) 97, Total HDL Cholesterol 92, Cholesterol/HDL Ratio 2.054, Lipase 171, Vitamin B12 Level 953H, 25-Hydroxy Vitamin D Total 65.4, Folate 7.7, Thyroid Stimulating Hormone (TSH) 1.440, Free Thyroxine 0.95 06/20/20 12:55: POC Troponin I (Misc) 0.00 06/20/20 15:37: POC Troponin I (Misc) 0.15H 06/20/20 16:20: Prothrombin Time 13.3, Prothromb Time International Ratio 0.99, Activated Partial Thromboplast Time 28.2 06/20/20 17:24: POC Troponin I (Misc) 0.00 06/20/20 22:24: Troponin I < 0.02 06/21/20 05:28: Troponin I < 0.02, Nucleated Red Blood Cells % (auto) 0.0, Anion Gap 8, Glomerular Filtration Rate > 60.0, Calcium Level 8.2L, Magnesium Level 2.0, Total Bilirubin 0.4, Aspartate Amino Transf (AST/SGOT) 16, Alanine Aminotransferase (ALT/SGPT) 15, Alkaline Phosphatase 39L, C-Reactive Protein, Quantitative 0.30, Total Protein 5.5L, Albumin 3.0L, Albumin/Globulin Ratio 1.2, Triglycerides Level 67, Total Cholesterol 161, LDL Cholesterol 72, Non-HDL Cholesterol (LDL + VLDL) 85, Total HDL Cholesterol 76, Cholesterol/HDL Ratio 2.118 06/21/20 09:50: Troponin I < 0.02 CBC/BMP Laboratory Tests 06/20/20 12:51 06/21/20 05:28 Microbiology Microbiology 06/20/20 Respiratory Virus Panel (PCR) ([facility]) - Final, Complete Discharge Medications Scheduled Aspirin (Aspirin EC) 81 Mg Tab, 81 MG PO DAILY, (Reported) Baclofen (Baclofen) 10 Mg Tab, 10 MG PO TID, (Reported) Bupropion HCl (Bupropion HCl) 75 Mg Tablet, 37.5 MG PO DAILY, (Reported) Cholecalciferol (Vitamin D3) (Vitamin D3) 1,000 Unit Tablet, 1,000 UNITS PO DAILY, (Reported) Ferrous Sulfate (Ferrous Sulfate) 325 Mg Tablet.dr, 325 MG PO Q3RD, (Reported) Fluoxetine Hcl (Fluoxetine HCl) 10 Mg Capsule, 10 MG PO DAILY, (Reported) 30MG TOTAL DAILY Fluoxetine Hcl (Fluoxetine HCl) 20 Mg Capsule, 20 MG PO DAILY, (Reported) TOTAL 30 MG DOSE Fluticasone Propionate (Flonase Allergy Relief) 9.9 Ml [place].susp, 1 SPRAY NA BID, (Reported) Hydroxychloroquine Sulfate (Hydroxychloroquine Sulfate) 200 Mg Tab, 200 MG PO BID, (Reported) Levocetirizine Dihydrochloride (Levocetirizine Dihydrochloride) 5 Mg Tablet, 5 MG PO QHS, (Reported) Montelukast Sodium (Montelukast Sodium) 10 Mg Tab, 10 MG PO DAILY, (Reported) Omeprazole (Omeprazole) 40 Mg Cap, 40 MG PO BID, (Reported) Potassium Gluconate (Potassium) 99 Mg Tablet, 595 MG PO BID, (Reported) Propranolol HCl (Propranolol HCl) 20 Mg Tablet, 20 MG PO BID, (Reported) Rosuvastatin Calcium (Rosuvastatin Calcium) 10 Mg Tablet, 10 MG PO DAILY Scheduled PRN Albuterol Sulfate (Ventolin Hfa) 18 Gm Hfa.aer.ad, 2 PUFF INH QID PRN for SHORTNESS OF BREATH, (Reported) Baclofen (Baclofen) 10 Mg Tablet, 10 MG PO DAILY PRN for SPASMS, (Reported) Methylphenidate HCl (Methylphenidate HCl) 10 Mg Tablet, 10 MG PO DAILY PRN for ATTENTION, (Reported) Polyvinyl Alcohol ([place]wa Tears) 1.4 % Yolanda, 2 DROP OP Q4HP PRN for DRY EYES, (Reported) Allergies Coded Allergies: Sulfa (Sulfonamide Antibiotics) (Verified Allergy, Severe, THAPA LENARD SYNDROME, 05/04/19) ibuprofen (Verified Allergy, Severe, MARICEL'S LEANRD'S SYNDROME, 05/04/19) naproxen (Verified Allergy, Severe, THAPA LENARD SYNDROME, 05/04/19) amoxicillin (Verified Allergy, Intermediate, HIVES, 05/04/19) latex (Verified Allergy, Mild, RASH, 05/04/19) Uncoded Allergies: ANTICONVULSANT (Allergy, Severe, Thapa-Lenard Syndrome, 05/04/19) GME ATTESTATION GME ATTESTATION My faculty preceptor for this patient encounter was physically present during the encounter and was fully available. All aspects of the patient interview, examination, medical decision making process, and medical care plan development were reviewed and approved by the faculty preceptor. The faculty preceptor is aware and concurs with the plan as stated in the body of this note and will attest to such by his/her cosignature. ATTENDING NOTE I, Valdo Gamez MD, have independently examined this patient and performed my own physical exam, as well as reviewed the documentation and edited where necessary. I have discussed in detail with the resident / student the findings and plan of treatment as documented by the resident / student and edited their note. I agree with their findings and treatment plan and have edited their documentation. Total time spent on this patient including coordination of care, review of chart documentation and actual patient contact is around 35 minutes ELISHA SHEPPARD OMS-3 Jun 21, 2020 12:51 VALDO GAMEZ MD Jun 22, 2020 15:54
[2020-06-21 17:42] LABS: HEMOGLOBIN A1c 5.1 %
[2020-06-25 12:11] LABS: ANTI DS-DNA AB Negative (Negative); ANTINUCLEAR ANTIBODIES DIRECT Negative (Negative)
== END 2020-06-21 12:45 | disposition home or self-care (01) ==
LOC: M ED 11:01 → M ED INP 11:02 → M PCU 06-21 03:15
PROVIDERS: ADMIT Internal Medicine; ATTEND Internal Medicine
DX: R20.2 Paresthesia of skin (principal); R07.89 Other chest pain; M32.9 Systemic lupus erythematosus, unspecified; I10 Essential (primary) hypertension; F32.9 Major depressive disorder, single episode, unspecified; J45.909 Unspecified asthma, uncomplicated; K21.9 Gastro-esophageal reflux disease without esophagitis; Z79.82 Long term (current) use of aspirin; Z79.899 Other long term (current) drug therapy; Z88.2 Allergy status to sulfonamides; Z88.8 Allergy status to other drugs, medicaments and biological substances; Z88.0 Allergy status to penicillin; Z91.040 Latex allergy status
CPT/HCPCS: 36415; 70450; 70551; 71045; 80048; 80053; 80061; 80076; 82306; 82607; 82746; 83036; 83690; 83735; 84439; 84443; 84484; 85025; 85027; 85610; 85730; 86038; 86140; 86225; 87798; 93005; 93041; 94760; 96361; 96374; 96375; 99285; G0378; J1200; J1644

== ENCOUNTER 2020-06-22 22:47 | Emergency (ER) | payer MEDICARE, MEDICAID ==
[~2020-06-22] VITALS: Ht 157.5 cm; Wt 65.0 kg
[~2020-06-22 22:47] MED LIST changes: +D31000TA2 PO; +FLUO10CA16 PO; +FLUO20CA22 PO; +HM P99TA PO; +LEVOTAB10 PO; +METH-1022 PO; +ROSU10TA6 PO; +VENTAER INH
[2020-06-22 23:11] LABS: BASO % 0.5 % (0.0-1.0); EOS # 0.2 10^3/uL (0.0-0.5); HEMATOCRIT 36.1 % (36.0-47.0); LYMPH # 2.9 10^3/uL (1.5-5.0); LYMPH % 39.2 % (24.0-44.0); MEAN CORPUSCULAR HEMOGLOBIN 25.1 pg (27.0-33.0); MEAN CORPUSCULAR HGB CONC 30.5 g/dl (32.0-36.5); MEAN CORPUSCULAR VOLUME 82.2 fl (80.0-96.0); MONO # 0.6 10^3/uL (0.0-0.8); MONO % 8.2 % (2.0-8.0); NEUTROPHILS # 3.6 10^3/uL (1.5-8.5); NEUTROPHILS % 49.8 % (36.0-66.0); PLATELET COUNT, AUTOMATED 330 10^3/uL (150-450); RED BLOOD COUNT 4.39 10^6/uL (4.00-5.40); WHITE BLOOD COUNT 7.3 10^3/uL (4.0-10.0)
[2020-06-22 23:28] LABS: INR 0.88; PROTHROMBIN TIME 12.1 SECONDS (12.5-14.3)
--- NOTE | 2020-06-22 23:42 | REPVR ---
PROCEDURE INFORMATION: Exam: XR Chest Exam date and time: 06/22/2020 11:19 PM Age: 45 years old Clinical indication: Chest pain TECHNIQUE: Imaging protocol: XR of the chest. Views: 1 view. COMPARISON: [facility] PORTABLE CHEST X-RAY 06/20/2020 12:42 PM FINDINGS: Lungs: Degree of lung inflation is normal. No evidence of pulmonary edema. No focal consolidation or parenchymal lung mass. Pleural spaces: No pleural effusion or pneumothorax. Heart/Mediastinum: Cardiac silhouette appears normal. No adenopathy or hilar mass. Bones/joints: Osseous structures show no concerning abnormality. IMPRESSION: No acute or focal cardiopulmonary process. Electronically signed by: Diaz Bullock On 06/22/2020 23:42:35 PM
[2020-06-22 23:55] LABS: ALBUMIN 3.8 GM/DL (3.2-5.2); ALT/SGPT 25 U/L (12-78); BILIRUBIN,DIRECT < 0.1 MG/DL (0.0-0.2); BILIRUBIN,TOTAL 0.2 MG/DL (0.2-1.0); BLOOD UREA NITROGEN 11 MG/DL (7-18); CALCIUM LEVEL 8.8 MG/DL (8.5-10.1); CARBON DIOXIDE LEVEL 26 MEQ/L (21-32); CHLORIDE LEVEL 107 MEQ/L (98-107); CK-MB VALUE MASS 1.4 NG/ML (<3.6); CPK CREATINE PHOSPHOKINASE 148 U/L (26-192); CREATININE FOR GFR 0.74 MG/DL (0.55-1.30); GLOMERULAR FILTRATION RATE > 60.0 (>58); GLUCOSE, FASTING 96 MG/DL (70-100); LIPASE 158 U/L (73-393); MB/CK RELATIVE INDEX 0.95 (< OR =4); POTASSIUM SERUM 3.6 MEQ/L (3.5-5.1); SODIUM LEVEL 140 MEQ/L (136-145); TOTAL PROTEIN 6.9 GM/DL (6.4-8.2); TROPONIN I < 0.02 NG/ML (< 0.10)
[2020-06-23] MEDS ORDERED: ISOVUE-370 76% 100ML VIAL As Ordered ONE (00:34)
[2020-06-23] MEDS: NITROGLYCERIN 0.4 MG SUBL TABLET SL PRN ×2 (00:56→01:04)
--- NOTE | 2020-06-23 01:02 | REPVR ---
PROCEDURE INFORMATION: Exam: CTA Chest With Contrast Exam date and time: 06/23/2020 12:27 AM Age: 45 years old Clinical indication: Chest pain; Type not specified; Additional info: R/O pe TECHNIQUE: Imaging protocol: Computed tomographic angiography of the chest with contrast. 3D rendering (Not supervised by radiologist): MIP and/or 3D reconstructed images were created by the technologist. Radiation optimization: All CT scans at this facility use at least one of these dose optimization techniques: automated exposure control; mA and/or kV adjustment per patient size (includes targeted exams where dose is matched to clinical indication); or iterative reconstruction. Contrast material: ISO; Contrast volume: 75 ml; Contrast route: INTRAVENOUS (IV); COMPARISON: CT Chest without contrast 01/13/2019 6:11 PM FINDINGS: Pulmonary arteries: No focal pulmonary artery filling defect to suggest acute pulmonary embolus. Aorta: No thoracic aortic aneurysm or dissection. Lungs: Pulmonary vascular/interstitial pattern does not suggest active pulmonary edema. No suspicious lung mass or air space process. No central endobronchial lesion. Pleural spaces: No pleural effusion or pneumothorax. Heart: No overt cardiac enlargement or abnormal volume of pericardial fluid. Mediastinal space: Residual thymic tissue is present in the anterior mediastinum. Lymph nodes: No enlarged mediastinal lymph nodes. Bones/joints: Bony structures show no acute fracture or destructive process. Soft tissues: No asymmetric abnormality of the extrathoracic soft tissues. Other findings: Limited visualization of upper abdomen shows no concerning finding. IMPRESSION: 1. No evidence of acute pulmonary embolus. 2. No other acute or concerning focal intrathoracic abnormality. Electronically signed by: Diaz Bullock On 06/23/2020 01:02:37 AM
[2020-06-23 01:04] VITALS: BP 112/63
[2020-06-23 05:20] LABS: CK-MB VALUE MASS 1.2 NG/ML (<3.6); CPK CREATINE PHOSPHOKINASE 110 U/L (26-192); MB/CK RELATIVE INDEX 1.09 (< OR =4); TROPONIN I < 0.02 NG/ML (< 0.10)
[2020-06-23 06:17] VITALS: BP 104/61
--- NOTE | 2020-06-23 09:41 | ECGEPIP ---
[facility] - ED Test Date: 2020-06-22 Pat Name: RAQUEL FISHMAN Department: Room: - Gender: Female [employer] Operator: Kassidy SOLIS : 1975 Requested By: CALE Parnell Order Number: [id number] Reading MD: Leander Hall Measurements Intervals [place] Rate: 63 P: 74 TX: 152 QRS: -2 QRSD: 84 T: 62 QT: 408 QTc: 417 Interpretive Statements Normal sinus rhythm SIMILAR TO 06/20/20 Electronically Signed on 06-23-2020 9:41:31 EDT by Leander Hall
--- NOTE | 2020-06-25 05:34 | ECGEPIP ---
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
== END 2020-06-23 06:23 | disposition home or self-care (01) ==
LOC: M ED 22:47
DX: R07.9 Chest pain, unspecified (principal); I10 Essential (primary) hypertension; Z88.1 Allergy status to other antibiotic agents; Z88.2 Allergy status to sulfonamides; Z91.040 Latex allergy status; Z88.6 Allergy status to analgesic agent
CPT/HCPCS: 36415; 71045; 71275; 80048; 80076; 82550; 82553; 83690; 84484; 85025; 85610; 93005; 93041; 94760; 99285; Q9967

== ENCOUNTER → 2020-07-03 | Outpatient (REF) | payer MEDICARE, MEDICAID ==
[~2020-07-03] MED LIST changes: -HM P99TA PO; +POTA99TA14 PO
[2020-07-03 12:23] LABS: APPEARANCE, URINE CLEAR (CLEAR); BACTERIA, URINE AUTO NEGATIVE (NEGATIVE); BILIRUBIN, URINE AUTO NEGATIVE (NEGATIVE); BLOOD, URINE BLOOD NEGATIVE (NEGATIVE); COLOR, URINE STRAW (YELLOW); GLUCOSE, URINE (UA) AUTO NEGATIVE (NEGATIVE); KETONE, URINE AUTO NEGATIVE (NEGATIVE); LEUKOCYTE ESTERASE, URINE AUTO NEGATIVE (NEGATIVE); NITRITE, URINE AUTO NEGATIVE (NEGATIVE); PROTEIN, URINE AUTO NEGATIVE (NEGATIVE); RBC, URINE AUTO 0 /HPF (0-3); SPECIFIC GRAVITY URINE AUTO 1.012 (1.002-1.035); SQUAMOUS EPITHELIAL CELL UR AU 1 /HPF (0-6); UROBILINOGEN, URINE AUTO 0.2 mg/dL (0.0-2.0); WBC, URINE AUTO 0 /HPF (0-3)
== END ==
LOC: M SFHCRHEU 08:44
PROVIDERS: ATTEND Internal Medicine Rheumatology
DX: M32.9 Systemic lupus erythematosus, unspecified (principal)
CPT/HCPCS: 81001; 86140; G0463

== ENCOUNTER → 2020-09-18 | Outpatient (CLI) | payer MEDICARE, MEDICAID ==
[~2020-09-18] MED LIST changes: +FAMO10TA50 PO; -FAMO1TAB25 PO; +OMEP40CA4 PO; -OMEP40CA97 PO
--- NOTE | 2020-09-18 14:29 | REP ---
INDICATION: OVARION CYST. COMPARISON: Multiple TECHNIQUE: Transvesical and transvaginal imaging FINDINGS: The uterus measures 9.5 x 4.7 x 5.3 cm. In the uterine fundus there is a 1.5 x 1.6 x 1.7 cm sized hypoechoic structure consistent with myomatous change. The endometrial echo complex is poorly visualized, is somewhat heterogenous, and has a maximal thickness of 8 mm. Right ovary measures 3.9 x 4.7 x 4.7 cm. Within the right ovary there is a 3.8 x 3.4 x 4 cm sized anechoic structure which exhibits posterior wall enhancement and increased through transmission. The right ovarian RI is 0.58. Left ovary measures 4.1 x 2.2 x 2 x 1 cm. Within the left ovary there is a 3.0 x 1.6 x 1.5 cm sized anechoic structure which exhibits posterior wall enhancement and increased through transmission. Left ovarian RI is 0.72. Urinary bladder measures 15 x 8 x 12 cm. IMPRESSION: 1. Uterine myomatous changes as described above. 2. Bilateral simple appearing ovarian cysts. Two month follow-up is recommended. <Electronically signed by Jeffrey Daley > 09/18/20 [id number]
== END ==
LOC: M RAD 13:10
PROVIDERS: ATTEND Nurse Practitioner Women's Health
DX: N83.291 Other ovarian cyst, right side (principal)

== ENCOUNTER → 2020-11-02 | Outpatient (REF) | payer MEDICARE, MEDICAID ==
[~2020-11-02] MED LIST changes: -CLIN150C15 PO; +CLIN150C17 PO
[2020-11-02 11:23] LABS: APPEARANCE, URINE CLEAR (CLEAR); BACTERIA, URINE AUTO 1+ (NEGATIVE); BILIRUBIN, URINE AUTO NEGATIVE (NEGATIVE); BLOOD, URINE BLOOD NEGATIVE (NEGATIVE); COLOR, URINE STRAW (YELLOW); GLUCOSE, URINE (UA) AUTO NEGATIVE (NEGATIVE); KETONE, URINE AUTO NEGATIVE (NEGATIVE); LEUKOCYTE ESTERASE, URINE AUTO 1+ (NEGATIVE); MUCUS, URINE SMALL (NEGATIVE); NITRITE, URINE AUTO NEGATIVE (NEGATIVE); PROTEIN, URINE AUTO NEGATIVE (NEGATIVE); RBC, URINE AUTO 1 /HPF (0-3); SPECIFIC GRAVITY URINE AUTO 1.006 (1.002-1.035); SQUAMOUS EPITHELIAL CELL UR AU 1 /HPF (0-6); UROBILINOGEN, URINE AUTO 0.2 mg/dL (0.0-2.0); WBC, URINE AUTO 1 /HPF (0-3)
[2020-11-02 11:30] LABS: BASO % 0.7 % (0.0-1.0); EOS # 0.1 10^3/uL (0.0-0.5); EOS % 1.3 % (0.0-3.0); HEMATOCRIT 38.1 % (36.0-47.0); HEMOGLOBIN 11.6 g/dl (12.0-15.5); LYMPH # 1.9 10^3/uL (1.5-5.0); LYMPH % 31.8 % (24.0-44.0); MEAN CORPUSCULAR HEMOGLOBIN 23.6 pg (27.0-33.0); MEAN CORPUSCULAR HGB CONC 30.4 g/dl (32.0-36.5); MEAN CORPUSCULAR VOLUME 77.4 fl (80.0-96.0); MONO # 0.4 10^3/uL (0.0-0.8); MONO % 7.2 % (2.0-8.0); NEUTROPHILS # 3.5 10^3/uL (1.5-8.5); NEUTROPHILS % 58.7 % (36.0-66.0); PLATELET COUNT, AUTOMATED 318 10^3/uL (150-450); RED BLOOD COUNT 4.92 10^6/uL (4.00-5.40); WHITE BLOOD COUNT 5.9 10^3/uL (4.0-10.0)
[2020-11-02 12:07] LABS: ERYTHROCYTE SEDIMENTATION RATE 3 mm/hr (0-20)
[2020-11-02 13:07] LABS: CREATININE,RANDOM URINE 21.5 MG/DL; TOTAL PROTEIN,RANDOM URINE 5.8 MG/DL (0.0-12.0)
[2020-11-02 13:07] LABS: BLOOD UREA NITROGEN 21 MG/DL (7-18); CARBON DIOXIDE LEVEL 26 MEQ/L (21-32); CHLORIDE LEVEL 108 MEQ/L (98-107); CREATININE FOR GFR 0.74 MG/DL (0.55-1.30); GLOMERULAR FILTRATION RATE > 60.0 (>58); GLUCOSE, FASTING 84 MG/DL (70-100); POTASSIUM SERUM 4.3 MEQ/L (3.5-5.1); SODIUM LEVEL 138 MEQ/L (136-145)
[2020-11-02 13:08] LABS: ALT/SGPT 30 U/L (12-78); BILIRUBIN,TOTAL 0.2 MG/DL (0.2-1.0); COMPLEMENT C3 103 MG/DL (90-180); COMPLEMENT C4 19 MG/DL (10-40); TOTAL PROTEIN 7.6 GM/DL (6.4-8.2)
== END ==
LOC: M SFHCRHEU 09:49
PROVIDERS: ATTEND Internal Medicine Rheumatology
DX: M32.9 Systemic lupus erythematosus, unspecified (principal)
CPT/HCPCS: 36415; 80053; 81001; 82570; 84156; 85025; 85652; 86140; 86160; G0463

== ENCOUNTER → 2020-11-05 | Outpatient (REF) | payer MEDICARE, MEDICAID ==
[2020-11-05 17:41] LABS: APPEARANCE, URINE HAZY (CLEAR); BACTERIA, URINE AUTO 2+ (NEGATIVE); BILIRUBIN, URINE AUTO NEGATIVE (NEGATIVE); BLOOD, URINE BLOOD NEGATIVE (NEGATIVE); COLOR, URINE STRAW (YELLOW); GLUCOSE, URINE (UA) AUTO NEGATIVE (NEGATIVE); KETONE, URINE AUTO NEGATIVE (NEGATIVE); LEUKOCYTE ESTERASE, URINE AUTO 1+ (NEGATIVE); NITRITE, URINE AUTO NEGATIVE (NEGATIVE); PROTEIN, URINE AUTO NEGATIVE (NEGATIVE); RBC, URINE AUTO 0 /HPF (0-3); SPECIFIC GRAVITY URINE AUTO 1.003 (1.002-1.035); SQUAMOUS EPITHELIAL CELL UR AU 2 /HPF (0-6); UROBILINOGEN, URINE AUTO 0.2 mg/dL (0.0-2.0); WBC, URINE AUTO 1 /HPF (0-3)
== END ==
LOC: M LAB REF 16:13
PROVIDERS: ATTEND Physician Assistant
DX: N39.0 Urinary tract infection, site not specified (principal)

== ENCOUNTER → 2020-11-22 | Outpatient (CLI) | payer MEDICARE, MEDICAID ==
--- NOTE | 2020-11-22 13:52 | REP ---
INDICATION: N83.202 L OVARIAN CYST COMPARISON: 09/18/2020 TECHNIQUE: Transabdominal pelvic ultrasound followed by transvaginal examination for better evaluation of the endometrium and adnexa with color Doppler evaluation of the ovaries. FINDINGS: Bladder is unremarkable and measures 7.2 x 3.7 x 8.5 cm. Uterus measures 8.2 x 5.1 x 4.6 cm and again includes a possible fundal 1.4 x 1.1 x 1.3 cm fibroid noted. The endometrial complex measures 15 mm thickness. No discrete uterine or endometrial abnormalities are appreciated. Bilateral ovaries are normal in vascularity without evidence for torsion. Right ovary measures 3.3 x 2.6 x 2.2 cm and includes 2.3 x 1.9 x 2.2 cm complex presumed involuting follicle; R I = 0.47. Left ovary measures 3.2 x 1.4 x 2.7 cm and includes 2.3 x 0.8 x 1.8 cm dominant follicle; R I = venous flow noted. Small amount of pelvic free fluid. IMPRESSION: 1. Fundal fibroid again suggested. 2. Complex right ovarian cyst likely involuting hemorrhagic follicle. Dominant follicle in the left ovary. If the patient remains symptomatic consider re-evaluation in 4-6 weeks. <Electronically signed by Choco St > 11/22/20 [id number]
== END ==
LOC: M WHC 11:14
PROVIDERS: ATTEND Nurse Practitioner Women's Health
DX: N83.201 Unspecified ovarian cyst, right side (principal); N83.202 Unspecified ovarian cyst, left side

== ENCOUNTER 2020-12-02 10:03 | Emergency (ER) | payer MEDICARE, MEDICAID ==
[~2020-12-02] VITALS: Ht 154.9 cm; Wt 66.6 kg
[2020-12-02 10:53] LABS: BASO % 0.4 % (0.0-1.0); EOS # 0.1 10^3/uL (0.0-0.5); EOS % 1.1 % (0.0-3.0); HEMATOCRIT 36.3 % (36.0-47.0); HEMOGLOBIN 11.3 g/dl (12.0-15.5); LYMPH # 1.8 10^3/uL (1.5-5.0); LYMPH % 37.2 % (24.0-44.0); MEAN CORPUSCULAR HEMOGLOBIN 24.4 pg (27.0-33.0); MEAN CORPUSCULAR HGB CONC 31.1 g/dl (32.0-36.5); MEAN CORPUSCULAR VOLUME 78.2 fl (80.0-96.0); MONO # 0.4 10^3/uL (0.0-0.8); MONO % 7.4 % (2.0-8.0); NEUTROPHILS # 2.5 10^3/uL (1.5-8.5); NEUTROPHILS % 53.7 % (36.0-66.0); PLATELET COUNT, AUTOMATED 278 10^3/uL (150-450); RED BLOOD COUNT 4.64 10^6/uL (4.00-5.40); WHITE BLOOD COUNT 4.7 10^3/uL (4.0-10.0)
[2020-12-02] MEDS ORDERED: FLUO20CA22 PO (10:56)
[2020-12-02 11:30] LABS: ALBUMIN 3.7 GM/DL (3.2-5.2); ALT/SGPT 20 U/L (12-78); BILIRUBIN,DIRECT < 0.1 MG/DL (0.0-0.2); BILIRUBIN,TOTAL 0.3 MG/DL (0.2-1.0); BLOOD UREA NITROGEN 11 MG/DL (7-18); CALCIUM LEVEL 8.7 MG/DL (8.5-10.1); CARBON DIOXIDE LEVEL 28 MEQ/L (21-32); CHLORIDE LEVEL 109 MEQ/L (98-107); GLOMERULAR FILTRATION RATE > 60.0 (>58); GLUCOSE, FASTING 96 MG/DL (70-100); HCG, SERUM QUANTITATIVE < 1.0 MIU/ML; LIPASE 130 U/L (73-393); POTASSIUM SERUM 4.3 MEQ/L (3.5-5.1); SODIUM LEVEL 141 MEQ/L (136-145); TOTAL PROTEIN 6.5 GM/DL (6.4-8.2)
--- NOTE | 2020-12-02 12:10 | REP ---
INDICATION: L flank pain, hematuria. COMPARISON: Multiple the latest 06/15/2020 TECHNIQUE: Standard helical technique without intravenous contrast administration FINDINGS: The lung bases are again seen to be clear. Limited evaluation of the solid intra-organs and gallbladder show no gross abnormalities. Limited evaluation of the pancreas, adrenal glands, and kidneys show no gross abnormalities. There is no nephroureterolithiasis, hydronephrosis, or hydroureter. There are no urinary bladder calcifications. Limited evaluation of the bowel loops and the mesenteries show no gross abnormalities. There is no evidence of free fluid or free air. Limited evaluation of the abdominal aorta and para-aortic regions show no changes from the prior exam. Bone window technique throughout the examination shows the osseous structures to be unchanged. IMPRESSION: There is no evidence of acute disease. <Electronically signed by Jeffrey Daley > 12/02/20 [id number]
[2020-12-02 12:51] VITALS: BP 110/68
== END 2020-12-02 12:53 | disposition home or self-care (01) ==
LOC: M ED 10:03
DX: R10.9 Unspecified abdominal pain (principal); R31.9 Hematuria, unspecified; K62.5 Hemorrhage of anus and rectum; D64.9 Anemia, unspecified; I10 Essential (primary) hypertension; R01.1 Cardiac murmur, unspecified; M32.9 Systemic lupus erythematosus, unspecified; F41.9 Anxiety disorder, unspecified; F32.9 Major depressive disorder, single episode, unspecified; Z87.891 Personal history of nicotine dependence; Z88.1 Allergy status to other antibiotic agents; Z88.2 Allergy status to sulfonamides; Z88.8 Allergy status to other drugs, medicaments and biological substances; Z91.040 Latex allergy status; Z79.82 Long term (current) use of aspirin; Z79.899 Other long term (current) drug therapy

== ENCOUNTER → 2020-12-24 | Outpatient (CLI) | payer MEDICARE, MEDICAID ==
[2020-12-24 16:07] LABS: APPEARANCE, URINE CLEAR (CLEAR); BACTERIA, URINE AUTO NEGATIVE (NEGATIVE); BILIRUBIN, URINE AUTO NEGATIVE (NEGATIVE); BLOOD, URINE BLOOD NEGATIVE (NEGATIVE); COLOR, URINE COLORLESS (YELLOW); GLUCOSE, URINE (UA) AUTO NEGATIVE (NEGATIVE); KETONE, URINE AUTO NEGATIVE (NEGATIVE); LEUKOCYTE ESTERASE, URINE AUTO TRACE (NEGATIVE); NITRITE, URINE AUTO NEGATIVE (NEGATIVE); PROTEIN, URINE AUTO NEGATIVE (NEGATIVE); RBC, URINE AUTO 2 /HPF (0-3); SPECIFIC GRAVITY URINE AUTO 1.002 (1.002-1.035); SQUAMOUS EPITHELIAL CELL UR AU 1 /HPF (0-6); UROBILINOGEN, URINE AUTO 0.2 mg/dL (0.0-2.0); WBC, URINE AUTO 1 /HPF (0-3)
[2020-12-24 16:47] LABS: BLOOD UREA NITROGEN 9 MG/DL (7-18); CREATININE FOR GFR 0.65 MG/DL (0.55-1.30); GLOMERULAR FILTRATION RATE > 60.0 (>58)
--- NOTE | 2020-12-24 20:02 | REP ---
INDICATION: LUMBAGO WITH SCIATICA, RIGHT SIDE COMPARISON: None. TECHNIQUE: AP, lateral, flexion/extension, bilateral oblique, and coned-down views. FINDINGS: Lateral view suggests mild stable 3 mm of retrolisthesis at the L3-4 level. Alignment and lordosis is otherwise maintained. Moderate multilevel degenerative spondylosis includes endplate sclerosis, marginal spurring, and mild disc space narrowing. There is no evidence for acute fracture/compression injury or subluxation. No evidence for spondylolysis or spondylolisthesis. IMPRESSION: Moderate multilevel degenerative spondylosis <Electronically signed by Choco St > 12/24/201957
== END ==
LOC: M PLAIMG 13:21
PROVIDERS: ATTEND Student in an Organized Health Care Education/Training Program
DX: Z01.812 Encounter for preprocedural laboratory examination (principal); M47.816 Spondylosis without myelopathy or radiculopathy, lumbar region; M54.41 Lumbago with sciatica, right side; R39.15 Urgency of urination
CPT/HCPCS: 36415; 72114; 81001; 82565; 84520; G0463

== ENCOUNTER → 2020-12-28 | Outpatient (CLI) | payer MEDICARE, MEDICAID ==
[~2020-12-28] MED LIST changes: +GLUCAGON INJ 1MG VIAL As Ordered ONE; +ISOVUE-370 76% 100ML VIAL As Ordered ONE; +NEULUMEX 0.1% SUSPENSION 450ML BOTTLE (FORMERLY VOLUMEN) As Ordered ONE
--- NOTE | 2020-12-28 16:31 | REP ---
INDICATION: ABNORMAL WT LOSS, IRON DEF, MELENA-LAB 1ST. COMPARISON: Multiple the latest 12/02/2020 a noncontrast enhanced exam TECHNIQUE: Standard helical technique after the intravenous administration of 100 cc Isovue 370. One thousand three hundred fifty cc of volumen was administered p.o. 0.6 mg of glucagon was given IV over 40 seconds prior to the IV contrast administration FINDINGS: The lung bases are clear and unchanged. The liver, gallbladder, spleen, pancreas, adrenal glands, and kidneys are within normal limits. The abdominal aorta and para-aortic regions are within normal limits. There is no or free air. There is a trace amount of free pelvic fluid likely physiologic. There is no evidence of a mass or adenopathy. There is a small cyst in the left adnexa likely a small ovarian cyst. The bowel loops and the mesenteries are within normal limits. There is no evidence of abnormal bowel wall thickening or edema. There is no abnormal desmoplasia. There is no abnormal bowel wall tethering. There is, however, loops of small bowel in the left upper quadrant which are not . These are poorly evaluated. IMPRESSION: 1. There is evidence of a small left ovarian cyst. This measures approximately 2 cm. 2. Small amount of free fluid in pelvis likely physiologic. 3. No evidence of acute intraabdominal or intrapelvic disease with findings as described above. <Electronically signed by Jeffrey Daley > 12/28/20 [id number]
[2020-12-31 17:07] LABS: CHROMOGRANIN A 32.3 ng/mL (0.0-101.8)
== END ==
LOC: M RAD 12:02
PROVIDERS: ATTEND Internal Medicine Gastroenterology
DX: E61.1 Iron deficiency (principal); K92.1 Melena; R63.4 Abnormal weight loss; K58.2 Mixed irritable bowel syndrome
CPT/HCPCS: 36415; 74177; 82656; 82941; 83993; 86316; 87505; J1610; Q9967

== ENCOUNTER → 2020-12-31 | Outpatient (CLI) | payer MEDICARE, MEDICAID ==
[~2020-12-31] MED LIST changes: -GLUCAGON INJ 1MG VIAL As Ordered ONE; -ISOVUE-370 76% 100ML VIAL As Ordered ONE; -NEULUMEX 0.1% SUSPENSION 450ML BOTTLE (FORMERLY VOLUMEN) As Ordered ONE; +PROHANCE 279.3MG/ML 15ML VIAL As Ordered ONE
--- NOTE | 2020-12-31 15:30 | REP ---
INDICATION: HIGH RISK DENSE BREAST TISSUE. COMPARISON: MRI 12/27/2019. Mammogram 05/28/2020. TECHNIQUE: Three Latoya MRI imaging was performed with a dedicated breast coil. Axial, coronal, and sagittal T1 and T2 weighted scans were obtained with and without fat saturation in the usual fashion. The study includes dynamically acquired post gadolinium-enhanced imaging with image subtraction. Maximum intensity projection and multi planar reformation imaging is included as well. This study is interpreted with the aid of [employer], an FDA approved computer aided detection (CAD) software program, on a dedicated breast MRI workstation. The gadolinium enhancement dose is 13 mL of intravenous ProHance. FINDINGS: There is moderate fibroglandular tissue bilaterally. There is no axillary adenopathy. No significant cystic change is seen. There is moderate background parenchymal enhancement bilaterally. There is no suspicious enhancing mass or morphologic abnormality. IMPRESSION: BI-RADS category 1, negative stable MRI breasts. No suspicious enhancing mass or morphologic abnormality. Yearly supplemental screening MRI of the breasts is recommended for patients with an elevated lifetime risk of breast cancer of 20% or greater, in addition to annual screening mammography, staggered every 6 months. <Electronically signed by Musa Hawk > 12/31/20 [id number]
== END ==
LOC: M RAD 10:51
PROVIDERS: ATTEND Nurse Practitioner Women's Health
DX: R92.2 Inconclusive mammogram (principal); Z80.3 Family history of malignant neoplasm of breast; Z91.89 Other specified personal risk factors, not elsewhere classified
CPT/HCPCS: A9576; C8908

== ENCOUNTER → 2021-01-19 | Outpatient (CLI) | payer MEDICARE, MEDICAID ==
[~2021-01-19] MED LIST changes: -PROHANCE 279.3MG/ML 15ML VIAL As Ordered ONE
== END ==
LOC: M LABSMTC 09:09
PROVIDERS: ATTEND Pediatrics
DX: Z20.822 Contact with and (suspected) exposure to COVID-19 (principal)
CPT/HCPCS: C9803; U0003

== ENCOUNTER → 2021-02-08 | Outpatient (REF) | payer MEDICARE, MEDICAID ==
[~2021-02-08] MED LIST changes: -FLUO10CA16 PO; +FLUO10CA18 PO; -MONT10TA10 PO; +MONT10TA97 PO
== END ==
LOC: M SFHCPLAZ 16:45
PROVIDERS: ATTEND Student in an Organized Health Care Education/Training Program
DX: R05.9 Cough, unspecified (principal); J02.9 Acute pharyngitis, unspecified

== ENCOUNTER → 2021-03-20 | Outpatient (CLI) | payer MEDICARE, MEDICAID | LOC: M LABSMTC 10:20 | PROVIDERS: ATTEND Pediatrics | DX: Z20.822 Contact with and (suspected) exposure to COVID-19 (principal) | CPT/HCPCS: C9803; U0003 ==

== ENCOUNTER → 2021-04-11 | Outpatient (REF) | payer MEDICARE, MEDICAID ==
[2021-04-11 15:19] LABS: APPEARANCE, URINE CLEAR (CLEAR); BACTERIA, URINE AUTO 1+ (NEGATIVE); BILIRUBIN, URINE AUTO NEGATIVE (NEGATIVE); BLOOD, URINE BLOOD NEGATIVE (NEGATIVE); COLOR, URINE STRAW (YELLOW); GLUCOSE, URINE (UA) AUTO NEGATIVE (NEGATIVE); KETONE, URINE AUTO NEGATIVE (NEGATIVE); LEUKOCYTE ESTERASE, URINE AUTO 1+ (NEGATIVE); NITRITE, URINE AUTO NEGATIVE (NEGATIVE); PROTEIN, URINE AUTO NEGATIVE (NEGATIVE); RBC, URINE AUTO 0 /HPF (0-3); SQUAMOUS EPITHELIAL CELL UR AU 0 /HPF (0-6); UROBILINOGEN, URINE AUTO 0.2 mg/dL (0.0-2.0); WBC, URINE AUTO 1 /HPF (0-3)
== END ==
LOC: M LAB REF 14:54
PROVIDERS: ATTEND Urology
DX: R39.9 Unspecified symptoms and signs involving the genitourinary system (principal)

== ENCOUNTER → 2021-04-24 | Outpatient (REF) | payer MEDICARE, MEDICAID ==
[2021-04-24 16:27] LABS: BASO # 0.1 10^3/uL (0.0-0.2); BASO % 0.8 % (0.0-1.0); EOS # 0.2 10^3/uL (0.0-0.5); EOS % 3.2 % (0.0-3.0); HEMATOCRIT 38.7 % (36.0-47.0); HEMOGLOBIN 12.8 g/dl (12.0-15.5); LYMPH # 2.1 10^3/uL (1.5-5.0); LYMPH % 34.5 % (24.0-44.0); MEAN CORPUSCULAR HEMOGLOBIN 31.6 pg (27.0-33.0); MEAN CORPUSCULAR HGB CONC 33.1 g/dl (32.0-36.5); MEAN CORPUSCULAR VOLUME 95.6 fl (80.0-96.0); MONO # 0.5 10^3/uL (0.0-0.8); MONO % 8.6 % (2.0-8.0); NEUTROPHILS # 3.1 10^3/uL (1.5-8.5); NEUTROPHILS % 52.7 % (36.0-66.0); PLATELET COUNT, AUTOMATED 250 10^3/uL (150-450); RED BLOOD COUNT 4.05 10^6/uL (4.00-5.40); WHITE BLOOD COUNT 5.9 10^3/uL (4.0-10.0)
[2021-04-24 16:56] LABS: ALBUMIN 3.6 GM/DL (3.2-5.2); ALT/SGPT 31 U/L (12-78); BILIRUBIN,TOTAL 0.2 MG/DL (0.2-1.0); BLOOD UREA NITROGEN 8 MG/DL (7-18); CARBON DIOXIDE LEVEL 30 MEQ/L (21-32); CHLORIDE LEVEL 107 MEQ/L (98-107); COMPLEMENT C3 81 MG/DL (90-180); COMPLEMENT C4 15 MG/DL (10-40); CREATININE FOR GFR 0.61 MG/DL (0.55-1.30); GLOMERULAR FILTRATION RATE > 60.0 (>58); GLUCOSE, FASTING 66 MG/DL (70-100); POTASSIUM SERUM 3.9 MEQ/L (3.5-5.1); SODIUM LEVEL 142 MEQ/L (136-145); TOTAL PROTEIN 6.2 GM/DL (6.4-8.2)
[2021-04-24 17:20] LABS: CREATININE,RANDOM URINE < 13.0 MG/DL; TOTAL PROTEIN,RANDOM URINE < 5.0 MG/DL (0.0-12.0)
[2021-04-24 18:08] LABS: APPEARANCE, URINE CLEAR (CLEAR); BACTERIA, URINE AUTO 1+ (NEGATIVE); BILIRUBIN, URINE AUTO NEGATIVE (NEGATIVE); BLOOD, URINE BLOOD NEGATIVE (NEGATIVE); COLOR, URINE STRAW (YELLOW); GLUCOSE, URINE (UA) AUTO NEGATIVE (NEGATIVE); KETONE, URINE AUTO NEGATIVE (NEGATIVE); LEUKOCYTE ESTERASE, URINE AUTO NEGATIVE (NEGATIVE); MUCUS, URINE SMALL (NEGATIVE); NITRITE, URINE AUTO NEGATIVE (NEGATIVE); PROTEIN, URINE AUTO NEGATIVE (NEGATIVE); RBC, URINE AUTO 0 /HPF (0-3); SPECIFIC GRAVITY URINE AUTO 1.001 (1.002-1.035); SQUAMOUS EPITHELIAL CELL UR AU 0 /HPF (0-6); UROBILINOGEN, URINE AUTO 0.2 mg/dL (0.0-2.0); WBC, URINE AUTO 1 /HPF (0-3)
[2021-04-24 19:14] LABS: ERYTHROCYTE SEDIMENTATION RATE 3 mm/hr (0-20)
== END ==
LOC: M SFHCRHEU 11:59
PROVIDERS: ATTEND Internal Medicine Rheumatology
DX: M32.9 Systemic lupus erythematosus, unspecified (principal); I73.00 Raynaud's syndrome without gangrene; Z79.899 Other long term (current) drug therapy; L65.9 Nonscarring hair loss, unspecified; K12.1 Other forms of stomatitis

== ENCOUNTER 2021-09-26 12:48 | Emergency (ER) | payer MEDICARE, MEDICAID ==
[~2021-09-26] VITALS: Ht 157.5 cm; Wt 64.6 kg
[~2021-09-26 12:48] MED LIST changes: +ALBU2.5V10 INH; -ALBU83IN INH; -D31000TA2 PO; +VITA100093 PO
[2021-09-26 12:50] VITALS: BP 141/90
[2021-09-26] MEDS ORDERED: NYST50SS (12:57)
[2021-09-26 16:20] LABS: BASO % 0.4 % (0.0-1.0); EOS # 0.1 10^3/uL (0.0-0.5); EOS % 0.7 % (0.0-3.0); HEMATOCRIT 41.6 % (36.0-47.0); HEMOGLOBIN 14.1 g/dl (12.0-15.5); LYMPH # 2.4 10^3/uL (1.5-5.0); LYMPH % 33.7 % (24.0-44.0); MEAN CORPUSCULAR HEMOGLOBIN 30.8 pg (27.0-33.0); MEAN CORPUSCULAR HGB CONC 33.9 g/dl (32.0-36.5); MEAN CORPUSCULAR VOLUME 90.8 fl (80.0-96.0); MONO # 0.5 10^3/uL (0.0-0.8); MONO % 6.5 % (2.0-8.0); NEUTROPHILS # 4.1 10^3/uL (1.5-8.5); NEUTROPHILS % 58.4 % (36.0-66.0); PLATELET COUNT, AUTOMATED 249 10^3/uL (150-450); RED BLOOD COUNT 4.58 10^6/uL (4.00-5.40); WHITE BLOOD COUNT 7.1 10^3/uL (4.0-10.0)
[2021-09-26 16:55] LABS: ALBUMIN 3.6 GM/DL (3.2-5.2); ALT/SGPT 21 U/L (12-78); BILIRUBIN,DIRECT < 0.1 MG/DL (0.0-0.2); BILIRUBIN,TOTAL 0.4 MG/DL (0.2-1.0); BLOOD UREA NITROGEN 12 MG/DL (7-18); CALCIUM LEVEL 9.3 MG/DL (8.5-10.1); CARBON DIOXIDE LEVEL 25 MEQ/L (21-32); CHLORIDE LEVEL 110 MEQ/L (98-107); GLOMERULAR FILTRATION RATE > 60.0 (>58); GLUCOSE, FASTING 86 MG/DL (70-100); LIPASE 157 U/L (73-393); POTASSIUM SERUM 4.2 MEQ/L (3.5-5.1); SODIUM LEVEL 142 MEQ/L (136-145); TOTAL PROTEIN 6.2 GM/DL (6.4-8.2)
[2021-09-26 18:25] LABS: GC DNA AMPLIFICATION NEGATIVE (NEGATIVE)
[2021-09-26] MEDS ORDERED: CEPH500C PO (18:30)
[2021-09-26] MEDS ORDERED: CEPHALEXIN 500 MG CAP PO ONE (18:35)
== END 2021-09-26 18:50 | disposition home or self-care (01) ==
LOC: M ED 12:48
DX: N76.89 Other specified inflammation of vagina and vulva (principal); K21.9 Gastro-esophageal reflux disease without esophagitis; K58.9 Irritable bowel syndrome, unspecified; Z87.891 Personal history of nicotine dependence; Z88.2 Allergy status to sulfonamides; Z88.1 Allergy status to other antibiotic agents; Z88.8 Allergy status to other drugs, medicaments and biological substances; Z91.040 Latex allergy status; Z79.51 Long term (current) use of inhaled steroids; Z79.2 Long term (current) use of antibiotics; Z79.899 Other long term (current) drug therapy

== ENCOUNTER → 2021-10-09 | Outpatient (REF) | payer MEDICARE, MEDICAID ==
[~2021-10-09] MED LIST changes: +CEPH500C PO; +NYST50SS
[2021-10-09 13:20] LABS: BASO % 0.5 % (0.0-1.0); EOS % 0.8 % (0.0-3.0); HEMATOCRIT 41.5 % (36.0-47.0); LYMPH # 1.4 10^3/uL (1.5-5.0); MEAN CORPUSCULAR HEMOGLOBIN 31.3 pg (27.0-33.0); MEAN CORPUSCULAR HGB CONC 33.7 g/dl (32.0-36.5); MEAN CORPUSCULAR VOLUME 92.8 fl (80.0-96.0); MONO # 0.3 10^3/uL (0.0-0.8); MONO % 8.5 % (2.0-8.0); NEUTROPHILS # 2.1 10^3/uL (1.5-8.5); NEUTROPHILS % 54.9 % (36.0-66.0); PLATELET COUNT, AUTOMATED 258 10^3/uL (150-450); RED BLOOD COUNT 4.47 10^6/uL (4.00-5.40); WHITE BLOOD COUNT 3.9 10^3/uL (4.0-10.0)
[2021-10-09 13:51] LABS: APPEARANCE, URINE HAZY (CLEAR); BACTERIA, URINE AUTO NEGATIVE (NEGATIVE); BILIRUBIN, URINE AUTO NEGATIVE (NEGATIVE); BLOOD, URINE BLOOD NEGATIVE (NEGATIVE); CALCIUM OXALATE CRYSTALS MODERATE; COLOR, URINE YELLOW (YELLOW); GLUCOSE, URINE (UA) AUTO NEGATIVE (NEGATIVE); KETONE, URINE AUTO 1+ mg/dL (NEGATIVE); LEUKOCYTE ESTERASE, URINE AUTO NEGATIVE (NEGATIVE); MUCUS, URINE SMALL (NEGATIVE); NITRITE, URINE AUTO NEGATIVE (NEGATIVE); PROTEIN, URINE AUTO 1+ mg/dL (NEGATIVE); RBC, URINE AUTO 2 /HPF (0-3); SPECIFIC GRAVITY URINE AUTO 1.014 (1.002-1.035); SQUAMOUS EPITHELIAL CELL UR AU 1 /HPF (0-6); UROBILINOGEN, URINE AUTO 0.2 mg/dL (0.0-2.0); WBC, URINE AUTO 3 /HPF (0-3)
[2021-10-09 13:53] LABS: ERYTHROCYTE SEDIMENTATION RATE 2 mm/hr (0-20)
[2021-10-09 14:31] LABS: ALBUMIN 3.8 GM/DL (3.2-5.2); ALT/SGPT 37 U/L (12-78); BILIRUBIN,TOTAL 0.7 MG/DL (0.2-1.0); BLOOD UREA NITROGEN 4 MG/DL (7-18); CALCIUM LEVEL 9.2 MG/DL (8.5-10.1); CARBON DIOXIDE LEVEL 26 MEQ/L (21-32); CHLORIDE LEVEL 104 MEQ/L (98-107); CREATININE FOR GFR 0.85 MG/DL (0.55-1.30); GLOMERULAR FILTRATION RATE > 60.0 (>58); GLUCOSE, FASTING 100 MG/DL (70-100); POTASSIUM SERUM 3.3 MEQ/L (3.5-5.1); SODIUM LEVEL 140 MEQ/L (136-145); TOTAL PROTEIN 6.3 GM/DL (6.4-8.2)
[2021-10-09 14:43] LABS: TOTAL PROTEIN,RANDOM URINE 35.2 MG/DL (0.0-12.0)
[2021-10-13 13:06] LABS: ANTI DS-DNA AB Negative (Negative)
[2021-10-15 03:27] LABS: COMPLEMENT C3 83 MG/DL (90-180); COMPLEMENT C4 20 MG/DL (10-40)
== END ==
LOC: M SFHCRHEU 07:24
PROVIDERS: ATTEND Internal Medicine Rheumatology
DX: M32.9 Systemic lupus erythematosus, unspecified (principal); I73.00 Raynaud's syndrome without gangrene; L65.9 Nonscarring hair loss, unspecified; K12.1 Other forms of stomatitis; Z79.899 Other long term (current) drug therapy

== ENCOUNTER 2021-10-31 08:30 | Outpatient (RCR) | payer MEDICARE, MEDICAID | END 2021-11-06 | LOC: M PT 08:30 | PROVIDERS: ATTEND Student in an Organized Health Care Education/Training Program | DX: M47.816 Spondylosis without myelopathy or radiculopathy, lumbar region (principal) ==

== ENCOUNTER → 2021-11-21 | Outpatient (CLI) | payer MEDICARE, MEDICAID ==
[~2021-11-21] MED LIST changes: +PRED10PA PO
[2021-11-21 13:38] LABS: BASO % 0.4 % (0.0-1.0); EOS # 0.1 10^3/uL (0.0-0.5); EOS % 1.2 % (0.0-3.0); HEMATOCRIT 42.5 % (36.0-47.0); HEMOGLOBIN 13.7 g/dl (12.0-15.5); LYMPH # 3.2 10^3/uL (1.5-5.0); LYMPH % 47.4 % (24.0-44.0); MEAN CORPUSCULAR HEMOGLOBIN 31.1 pg (27.0-33.0); MEAN CORPUSCULAR HGB CONC 32.2 g/dl (32.0-36.5); MEAN CORPUSCULAR VOLUME 96.6 fl (80.0-96.0); MONO # 0.5 10^3/uL (0.0-0.8); MONO % 7.2 % (2.0-8.0); NEUTROPHILS % 43.7 % (36.0-66.0); PLATELET COUNT, AUTOMATED 259 10^3/uL (150-450); WHITE BLOOD COUNT 6.8 10^3/uL (4.0-10.0)
[2021-11-21 13:39] LABS: APPEARANCE, URINE MANUAL CLEAR (CLEAR); COLOR, URINE MANUAL LT YELLOW (YELLOW); GLUCOSE, URINE (UA) MANUAL NEGATIVE (NEGATIVE); PROTEIN, URINE MANUAL NEGATIVE (NEGATIVE); SPECIFIC GRAVITY,URINE MANUAL 1.005 (1.002-1.035)
[2021-11-21 13:40] LABS: BILIRUBIN, URINE MANUAL NEGATIVE (NEGATIVE); BLOOD URINE MANUAL NEGATIVE (NEGATIVE); KETONE, URINE MANUAL NEGATIVE (NEGATIVE); LEUKOCYTE ESTERASE, URINE MAN NEGATIVE (NEGATIVE); NITRITE, URINE MANUAL NEGATIVE (NEGATIVE); UROBILINOGEN, URINE MANUAL NORMAL (NORMAL)
[2021-11-21 14:06] LABS: ERYTHROCYTE SEDIMENTATION RATE 1 mm/hr (0-20)
[2021-11-21 14:23] LABS: CREATININE,RANDOM URINE < 13.0 MG/DL; TOTAL PROTEIN,RANDOM URINE < 5.0 MG/DL (0.0-12.0)
[2021-11-21 14:24] LABS: BLOOD UREA NITROGEN 7 MG/DL (7-18); CARBON DIOXIDE LEVEL 31 MEQ/L (21-32); CHLORIDE LEVEL 105 MEQ/L (98-107); CREATININE FOR GFR 0.66 MG/DL (0.55-1.30); GLOMERULAR FILTRATION RATE > 60.0 (>58); GLUCOSE, FASTING 74 MG/DL (70-100); POTASSIUM SERUM 3.3 MEQ/L (3.5-5.1); SODIUM LEVEL 139 MEQ/L (136-145)
[2021-11-21 14:25] LABS: ALBUMIN 3.8 GM/DL (3.2-5.2); ALT/SGPT 16 U/L (12-78); BILIRUBIN,TOTAL 0.3 MG/DL (0.2-1.0); CALCIUM LEVEL 9.3 MG/DL (8.5-10.1); COMPLEMENT C3 83 MG/DL (90-180); COMPLEMENT C4 20 MG/DL (10-40); TOTAL PROTEIN 6.6 GM/DL (6.4-8.2)
== END ==
LOC: M LAB 12:44
PROVIDERS: ATTEND Internal Medicine Rheumatology
DX: M32.9 Systemic lupus erythematosus, unspecified (principal); I73.00 Raynaud's syndrome without gangrene; K12.1 Other forms of stomatitis; L65.9 Nonscarring hair loss, unspecified; Z79.899 Other long term (current) drug therapy

== ENCOUNTER 2021-12-05 13:45 | Outpatient (RCR) | payer MEDICARE, MEDICAID | END 2021-12-06 | LOC: M PT 13:45 | PROVIDERS: ATTEND Student in an Organized Health Care Education/Training Program | DX: M47.816 Spondylosis without myelopathy or radiculopathy, lumbar region (principal) ==

== ENCOUNTER → 2021-12-09 | Outpatient (REF) | payer MEDICARE, MEDICAID ==
[2021-12-09 13:00] LABS: BASO % 0.3 % (0.0-1.0); EOS # 0.1 10^3/uL (0.0-0.5); EOS % 0.8 % (0.0-3.0); HEMOGLOBIN 13.5 g/dl (12.0-15.5); LYMPH % 33.4 % (24.0-44.0); MEAN CORPUSCULAR HEMOGLOBIN 31.9 pg (27.0-33.0); MEAN CORPUSCULAR HGB CONC 32.9 g/dl (32.0-36.5); MEAN CORPUSCULAR VOLUME 96.9 fl (80.0-96.0); MONO # 0.5 10^3/uL (0.0-0.8); MONO % 8.7 % (2.0-8.0); NEUTROPHILS # 3.5 10^3/uL (1.5-8.5); NEUTROPHILS % 56.6 % (36.0-66.0); PLATELET COUNT, AUTOMATED 262 10^3/uL (150-450); RED BLOOD COUNT 4.23 10^6/uL (4.00-5.40); WHITE BLOOD COUNT 6.1 10^3/uL (4.0-10.0)
[2021-12-09 13:33] LABS: ERYTHROCYTE SEDIMENTATION RATE 1 mm/hr (0-20)
[2021-12-09 13:48] LABS: ALBUMIN 3.6 GM/DL (3.2-5.2); ALT/SGPT 19 U/L (12-78); BILIRUBIN,TOTAL 0.3 MG/DL (0.2-1.0); BLOOD UREA NITROGEN 9 MG/DL (7-18); CALCIUM LEVEL 9.2 MG/DL (8.5-10.1); CARBON DIOXIDE LEVEL 30 MEQ/L (21-32); CHLORIDE LEVEL 104 MEQ/L (98-107); COMPLEMENT C3 84 MG/DL (90-180); COMPLEMENT C4 19 MG/DL (10-40); CREATININE FOR GFR 0.81 MG/DL (0.55-1.30); GLOMERULAR FILTRATION RATE > 60.0 (>58); GLUCOSE, FASTING 89 MG/DL (70-100); SODIUM LEVEL 138 MEQ/L (136-145); TOTAL PROTEIN 6.4 GM/DL (6.4-8.2)
== END ==
LOC: M SFHCRHEU 10:35
PROVIDERS: ATTEND Internal Medicine Rheumatology
DX: M32.9 Systemic lupus erythematosus, unspecified (principal); I73.00 Raynaud's syndrome without gangrene; Z79.899 Other long term (current) drug therapy; L65.9 Nonscarring hair loss, unspecified; K12.1 Other forms of stomatitis

== ENCOUNTER → 2021-12-16 | Outpatient (REF) | payer MEDICARE, MEDICAID | LOC: M SFHCPLAZ 16:51 | PROVIDERS: ATTEND Physician Assistant | DX: J02.9 Acute pharyngitis, unspecified (principal) ==

== ENCOUNTER 2021-12-19 10:45 | Outpatient (RCR) | payer MEDICARE, MEDICAID | END 2022-01-06 23:59 | disposition home or self-care (01) | LOC: M PT 10:45 | PROVIDERS: ATTEND Student in an Organized Health Care Education/Training Program | DX: M47.816 Spondylosis without myelopathy or radiculopathy, lumbar region (principal) ==

== ENCOUNTER 2022-02-04 07:45 | Outpatient (RCR) | payer MEDICARE, MEDICAID ==
[2022-02-06] MEDS ORDERED: OMEP-173 PO (13:06)
[2022-02-06] MEDS ORDERED: LEVOTAB10 PO (13:06)
[2022-02-06] MEDS ORDERED: SYMB80INH INH (13:06)
== END 2022-02-05 ==
LOC: M PT 07:45
PROVIDERS: ATTEND Student in an Organized Health Care Education/Training Program
DX: M47.816 Spondylosis without myelopathy or radiculopathy, lumbar region (principal)

== ENCOUNTER → 2022-02-05 | Outpatient (CLI) | payer MEDICARE, MEDICAID ==
[~2022-02-05] MED LIST changes: +OMEP-173 PO; +SYMB80INH INH
== END ==
LOC: M LABSMTC 10:12
PROVIDERS: ATTEND Anesthesiology
DX: Z01.812 Encounter for preprocedural laboratory examination (principal); Z11.52 Encounter for screening for COVID-19

== ENCOUNTER → 2022-03-11 | Outpatient (REF) | payer MEDICARE, MEDICAID ==
[2022-03-11 13:24] LABS: BASO % 0.5 % (0.0-1.0); EOS # 0.1 10^3/uL (0.0-0.5); EOS % 2.4 % (0.0-3.0); LYMPH % 35.3 % (24.0-44.0); MEAN CORPUSCULAR HEMOGLOBIN 31.5 pg (27.0-33.0); MEAN CORPUSCULAR HGB CONC 32.5 g/dl (32.0-36.5); MEAN CORPUSCULAR VOLUME 96.9 fl (80.0-96.0); MONO # 0.5 10^3/uL (0.0-0.8); MONO % 8.9 % (2.0-8.0); NEUTROPHILS # 2.9 10^3/uL (1.5-8.5); NEUTROPHILS % 52.5 % (36.0-66.0); PLATELET COUNT, AUTOMATED 254 10^3/uL (150-450); RED BLOOD COUNT 4.13 10^6/uL (4.00-5.40); WHITE BLOOD COUNT 5.5 10^3/uL (4.0-10.0)
[2022-03-11 13:43] LABS: ERYTHROCYTE SEDIMENTATION RATE < 1 mm/hr (0-20)
[2022-03-11 13:54] LABS: ALBUMIN 3.3 G/DL (3.2-5.2); ALKALINE PHOSPHATASE 82 U/L (46-116); ALT/SGPT 21 U/L (7.0-40); AST/SGOT 20 U/L (<34); BILIRUBIN,TOTAL 0.2 MG/DL (0.3-1.2); BLOOD UREA NITROGEN 11 MG/DL (9-23); C REACTIVE PROTEIN QUANTITATIV < 0.40 MG/DL (<1.0); CALCIUM LEVEL 8.6 MG/DL (8.5-10.1); CARBON DIOXIDE LEVEL 25 MMOL/L (20-31); CHLORIDE LEVEL 105 MMOL/L (98-107); CREATININE FOR GFR 0.72 MG/DL (0.55-1.30); GLOMERULAR FILTRATION RATE > 60.0 (>58); GLUCOSE, FASTING 80 MG/DL (60-100); POTASSIUM SERUM 4.1 MMOL/L (3.5-5.1); SODIUM LEVEL 141 MMOL/L (136-145); TOTAL PROTEIN 5.7 G/DL (5.7-8.2)
[2022-03-11 13:55] LABS: COMPLEMENT C3 85.3 MG/DL (90.0-170.0); COMPLEMENT C4 18.7 MG/DL (12-36)
[2022-03-11 15:25] LABS: APPEARANCE, URINE MANUAL CLEAR (CLEAR); SPECIFIC GRAVITY,URINE MANUAL 1.005 (1.002-1.035)
[2022-03-11 15:26] LABS: BILIRUBIN, URINE MANUAL NEGATIVE (NEGATIVE); BLOOD URINE MANUAL NEGATIVE (NEGATIVE); COLOR, URINE MANUAL COLORLESS (YELLOW); GLUCOSE, URINE (UA) MANUAL NEGATIVE (NEGATIVE); KETONE, URINE MANUAL NEGATIVE (NEGATIVE); LEUKOCYTE ESTERASE, URINE MAN NEGATIVE (NEGATIVE); NITRITE, URINE MANUAL NEGATIVE (NEGATIVE); PROTEIN, URINE MANUAL NEGATIVE (NEGATIVE); UROBILINOGEN, URINE MANUAL NORMAL (NORMAL)
== END ==
LOC: M SFHCRHEU 09:35
PROVIDERS: ATTEND Internal Medicine Rheumatology
DX: M32.9 Systemic lupus erythematosus, unspecified (principal); I73.00 Raynaud's syndrome without gangrene; Z79.899 Other long term (current) drug therapy; L65.9 Nonscarring hair loss, unspecified; K12.1 Other forms of stomatitis

== ENCOUNTER → 2022-04-21 | Outpatient (CLI) | payer MEDICARE, MEDICAID ==
[~2022-04-21] MED LIST changes: +FERR1TAB8 PO; +NYST-38; -NYST50SS
== END ==
LOC: M LABSMTC 09:08
PROVIDERS: ATTEND Anesthesiology
DX: Z01.812 Encounter for preprocedural laboratory examination (principal); Z20.822 Contact with and (suspected) exposure to COVID-19

== ENCOUNTER → 2022-04-25 | Outpatient (CLI) | payer MEDICARE, MEDICAID ==
[2022-04-25 14:04] LABS: FOLLICLE STIMULATING HORMONE 109.1 mIU/ML; THYROID STIMULATING HORMONE 2.561 uIU/ML (0.55-4.78)
[2022-04-25 14:05] LABS: FERRITIN 54.5 NG/ML (7.3-270.7); LUTEINIZING HORMONE 71.5 mIU/ML; PROLACTIN 5.19 NG/ML
[2022-04-25 14:06] LABS: PERCENT SATURATION 19.9 % (13.2-45.0)
[2022-04-25 14:07] LABS: FOLATE 10.06 NG/ML (>5.4)
[2022-04-25 14:08] LABS: FREE T4 1.02 NG/DL (0.89-1.76)
== END ==
LOC: M PLALAB 09:19
PROVIDERS: ATTEND Student in an Organized Health Care Education/Training Program
DX: L65.9 Nonscarring hair loss, unspecified (principal)

== ENCOUNTER → 2022-04-28 | Outpatient (REF) | payer MEDICARE, MEDICAID | LOC: M SFHCPLAZ 15:08 | PROVIDERS: ATTEND Student in an Organized Health Care Education/Training Program | DX: L65.9 Nonscarring hair loss, unspecified (principal) ==

== ENCOUNTER → 2022-05-02 | Outpatient (REF) | payer MEDICARE, MEDICAID ==
[~2022-05-02] MED LIST changes: +SUCR1TA PO
== END ==
LOC: M SFHCPLAZ 12:40
PROVIDERS: ATTEND Student in an Organized Health Care Education/Training Program
DX: L65.9 Nonscarring hair loss, unspecified (principal)

== ENCOUNTER → 2022-05-13 | Outpatient (REF) | payer MEDICARE, MEDICAID ==
[~2022-05-13] MED LIST changes: -SUCR1TA PO
== END ==
LOC: M SFHCPLAZ 17:06
PROVIDERS: ATTEND Student in an Organized Health Care Education/Training Program
DX: R30.0 Dysuria (principal)

== ENCOUNTER 2022-05-17 18:43 | Emergency (ER) | payer MEDICARE, MEDICAID ==
[~2022-05-17] VITALS: Ht 154.9 cm; Wt 69.0 kg
[2022-05-17] MEDS ORDERED: GI COCKTAIL 50ML BTL(HYOSCYAMINE/MAALOX/LIDOCAINE VISCOUS)(1:3:1) PO ONE (19:25)
[2022-05-17 19:49] LABS: BASO % 0.5 % (0.0-1.0); EOS # 0.1 10^3/uL (0.0-0.5); EOS % 1.1 % (0.0-3.0); HEMATOCRIT 39.2 % (36.0-47.0); HEMOGLOBIN 13.4 g/dl (12.0-15.5); LYMPH # 2.5 10^3/uL (1.5-5.0); LYMPH % 38.6 % (24.0-44.0); MEAN CORPUSCULAR HGB CONC 34.2 g/dl (32.0-36.5); MEAN CORPUSCULAR VOLUME 90.7 fl (80.0-96.0); MONO # 0.4 10^3/uL (0.0-0.8); NEUTROPHILS # 3.5 10^3/uL (1.5-8.5); NEUTROPHILS % 53.6 % (36.0-66.0); PLATELET COUNT, AUTOMATED 255 10^3/uL (150-450); RED BLOOD COUNT 4.32 10^6/uL (4.00-5.40); WHITE BLOOD COUNT 6.6 10^3/uL (4.0-10.0)
[2022-05-17 20:00] LABS: INR 0.97; PROTHROMBIN TIME 13.1 SECONDS (12.5-14.5)
[2022-05-17 20:16] LABS: CK-MB VALUE MASS 2.2 NG/ML (<3.6); LIPASE 32 U/L (12-53)
[2022-05-17 20:17] LABS: ALBUMIN 3.8 G/DL (3.2-5.2); ALKALINE PHOSPHATASE 61 U/L (46-116); ALT/SGPT 18 U/L (7.0-40); AST/SGOT 25 U/L (<34); BILIRUBIN,DIRECT 0.2 MG/DL (<0.4); BILIRUBIN,TOTAL 0.5 MG/DL (0.3-1.2); BLOOD UREA NITROGEN 9 MG/DL (9-23); CARBON DIOXIDE LEVEL 30 MMOL/L (20-31); CHLORIDE LEVEL 106 MMOL/L (98-107); CREATININE FOR GFR 0.77 MG/DL (0.55-1.30); GLOMERULAR FILTRATION RATE > 60.0 (>58); GLUCOSE, FASTING 76 MG/DL (60-100); HCG, SERUM QUALITATIVE NEGATIVE (NEGATIVE); POTASSIUM SERUM 3.4 MMOL/L (3.5-5.1); SODIUM LEVEL 141 MMOL/L (136-145); TOTAL PROTEIN 6.3 G/DL (5.7-8.2)
[2022-05-17 20:19] LABS: THYROID STIMULATING HORMONE 1.547 uIU/ML (0.55-4.78)
[2022-05-17 20:21] LABS: CPK CREATINE PHOSPHOKINASE 184 U/L (34-145); MB/CK RELATIVE INDEX 1.19 (< OR =4)
[2022-05-17 20:25] LABS: RSV AMPLIFICATION NEGATIVE (NEGATIVE)
[2022-05-17 21:17] LABS: CK-MB VALUE MASS 2.4 NG/ML (<3.6)
[2022-05-17 21:24] LABS: CPK CREATINE PHOSPHOKINASE 173 U/L (34-145); MB/CK RELATIVE INDEX 1.38 (< OR =4)
[2022-05-17 21:54] LABS: D-DIMER QUANT < 270 ng/ml (<500)
[2022-05-17 22:00] VITALS: BP 107/61
[2022-05-17] MEDS ORDERED: SUCR1TA PO (22:06)
[2022-05-17] MEDS ORDERED: OMEP40CA4 PO (22:06)
== END 2022-05-17 22:25 | disposition home or self-care (01) ==
LOC: M ED 18:43
DX: R07.9 Chest pain, unspecified (principal); K21.9 Gastro-esophageal reflux disease without esophagitis; I10 Essential (primary) hypertension; J45.909 Unspecified asthma, uncomplicated; M32.9 Systemic lupus erythematosus, unspecified; Z87.891 Personal history of nicotine dependence; Z88.0 Allergy status to penicillin; Z88.1 Allergy status to other antibiotic agents; Z88.6 Allergy status to analgesic agent; Z91.040 Latex allergy status; Z79.52 Long term (current) use of systemic steroids; Z79.82 Long term (current) use of aspirin; Z79.891 Long term (current) use of opiate analgesic; Z79.83 Long term (current) use of bisphosphonates; Z79.899 Other long term (current) drug therapy

== ENCOUNTER → 2022-06-13 | Outpatient (CLI) | payer MEDICARE, MEDICAID ==
[~2022-06-13] MED LIST changes: -AKWASOL OP; -ALBU20IN; +ALBU5SOL7; +ARTIDRO2 OP; +SUCR1TA PO
[2022-06-13 15:33] LABS: PERCENT SATURATION 22.5 % (13.2-45.0)
[2022-06-13 15:36] LABS: BASO % 0.4 % (0.0-1.0); EOS % 0.7 % (0.0-3.0); HEMATOCRIT 39.2 % (36.0-47.0); HEMOGLOBIN 12.7 g/dl (12.0-15.5); LYMPH # 2.2 10^3/uL (1.5-5.0); LYMPH % 41.5 % (24.0-44.0); MEAN CORPUSCULAR HEMOGLOBIN 30.1 pg (27.0-33.0); MEAN CORPUSCULAR HGB CONC 32.4 g/dl (32.0-36.5); MEAN CORPUSCULAR VOLUME 92.9 fl (80.0-96.0); MONO # 0.4 10^3/uL (0.0-0.8); MONO % 7.6 % (2.0-8.0); NEUTROPHILS # 2.7 10^3/uL (1.5-8.5); NEUTROPHILS % 49.8 % (36.0-66.0); PLATELET COUNT, AUTOMATED 313 10^3/uL (150-450); RED BLOOD COUNT 4.22 10^6/uL (4.00-5.40); WHITE BLOOD COUNT 5.4 10^3/uL (4.0-10.0)
== END ==
LOC: M PLALAB 12:00
PROVIDERS: ATTEND Student in an Organized Health Care Education/Training Program
DX: D50.9 Iron deficiency anemia, unspecified (principal)

== ENCOUNTER 2022-07-02 08:30 | Outpatient (RCR) | payer MEDICARE, MEDICAID | END 2022-07-06 | LOC: M PT 08:30 | PROVIDERS: ATTEND Student in an Organized Health Care Education/Training Program | DX: M54.50 Low back pain, unspecified (principal) ==

== ENCOUNTER → 2022-07-03 | Day surgery (SDC) | payer MEDICARE, MEDICAID ==
[~2022-07-03] VITALS: Ht 154.9 cm; Wt 69.9 kg
[~2022-07-03] MED LIST changes: +LIDOCAINE 2% 100MG/5ML SDV (FOR ANES.) As Ordered ONE; +NS 1,000 ML IV ONE; +fentaNYL 100 MCG/2 ML INJECTION As Ordered ONE; +propofoL 200 MG/20 ML VIAL As Ordered ONE
[2022-07-03 14:54] VITALS: BP 118/61
== END | disposition home or self-care (01) ==
LOC: M OPP 12:25
PROVIDERS: ATTEND Internal Medicine Gastroenterology
DX: K29.70 Gastritis, unspecified, without bleeding (principal); K22.70 Barrett's esophagus without dysplasia; K31.89 Other diseases of stomach and duodenum; Z87.891 Personal history of nicotine dependence; Z79.01 Long term (current) use of anticoagulants; Z79.1 Long term (current) use of non-steroidal anti-inflammatories (NSAID); Z79.2 Long term (current) use of antibiotics; Z88.0 Allergy status to penicillin; Z88.1 Allergy status to other antibiotic agents; Z88.2 Allergy status to sulfonamides; Z91.040 Latex allergy status
CPT/HCPCS: 43239; 88305; J3010

== ENCOUNTER → 2022-07-23 | Outpatient (CLI) | payer MEDICARE, MEDICAID ==
[~2022-07-23] MED LIST changes: -LIDOCAINE 2% 100MG/5ML SDV (FOR ANES.) As Ordered ONE; -NS 1,000 ML IV ONE; -fentaNYL 100 MCG/2 ML INJECTION As Ordered ONE; -propofoL 200 MG/20 ML VIAL As Ordered ONE
== END ==
LOC: M WHC 09:19
PROVIDERS: ATTEND Advanced Practice Midwife
DX: Z12.31 Encounter for screening mammogram for malignant neoplasm of breast (principal)

== ENCOUNTER → 2022-07-23 | Outpatient (REF) | payer MEDICARE, MEDICAID ==
[2022-07-23 14:43] LABS: APPEARANCE, URINE CLEAR (CLEAR); BACTERIA, URINE AUTO NEGATIVE (NEGATIVE); BILIRUBIN, URINE AUTO NEGATIVE (NEGATIVE); BLOOD, URINE BLOOD NEGATIVE (NEGATIVE); COLOR, URINE STRAW (YELLOW); GLUCOSE, URINE (UA) AUTO NEGATIVE (NEGATIVE); KETONE, URINE AUTO NEGATIVE (NEGATIVE); LEUKOCYTE ESTERASE, URINE AUTO NEGATIVE (NEGATIVE); NITRITE, URINE AUTO NEGATIVE (NEGATIVE); PROTEIN, URINE AUTO NEGATIVE (NEGATIVE); RBC, URINE AUTO 0 /HPF (0-3); SPECIFIC GRAVITY URINE AUTO 1.002 (1.002-1.035); SQUAMOUS EPITHELIAL CELL UR AU 0 /HPF (0-6); UROBILINOGEN, URINE AUTO 0.2 mg/dL (0.0-2.0); WBC, URINE AUTO 0 /HPF (0-3)
== END ==
LOC: M PLALAB 10:37
PROVIDERS: ATTEND Advanced Practice Midwife
DX: Z12.4 Encounter for screening for malignant neoplasm of cervix (principal); R30.0 Dysuria
CPT/HCPCS: 81001; 87086; 87624; G0123

== ENCOUNTER 2022-08-05 08:30 | Outpatient (RCR) | payer MEDICARE, MEDICAID | END 2022-08-06 | LOC: M PT 08:30 | PROVIDERS: ATTEND Student in an Organized Health Care Education/Training Program | DX: M54.50 Low back pain, unspecified (principal); I73.00 Raynaud's syndrome without gangrene; Z79.899 Other long term (current) drug therapy; L65.9 Nonscarring hair loss, unspecified; K12.1 Other forms of stomatitis ==

== ENCOUNTER 2022-08-14 09:14 | Outpatient (RCR) | payer MEDICARE, MEDICAID ==
[~2022-08-14 09:14] MED LIST changes: -HYDR200T3; -HYDR200T3 PO; +HYDR200T46; +HYDR200T46 PO
== END 2022-09-05 ==
LOC: M PT 09:14
PROVIDERS: ATTEND Student in an Organized Health Care Education/Training Program
DX: M54.50 Low back pain, unspecified (principal)

== ENCOUNTER 2022-09-04 08:28 | Outpatient (RCR) | payer MEDICARE, MEDICAID | END 2022-09-05 | LOC: M PT 08:28 | DX: M25.561 Pain in right knee (principal); M25.562 Pain in left knee ==

== ENCOUNTER 2022-10-01 08:30 | Outpatient (RCR) | payer MEDICARE, MEDICAID | END 2022-10-06 | LOC: M PT 08:30 | DX: M25.561 Pain in right knee (principal); M25.562 Pain in left knee ==

== ENCOUNTER 2022-10-15 08:28 | Outpatient (RCR) | payer MEDICARE, MEDICAID | END 2022-11-06 | LOC: M PT 08:28 | DX: M25.561 Pain in right knee (principal); M25.562 Pain in left knee ==

== ENCOUNTER → 2022-11-11 | Outpatient (CLI) | payer MEDICARE, MEDICAID ==
[2022-11-11 16:18] LABS: URIC ACID 4.1 MG/DL (3.1-7.8)
== END ==
LOC: M PLAIMG 11:47
PROVIDERS: ATTEND Student in an Organized Health Care Education/Training Program
DX: M19.071 Primary osteoarthritis, right ankle and foot (principal); R10.2 Pelvic and perineal pain; N83.291 Other ovarian cyst, right side; M25.571 Pain in right ankle and joints of right foot; M79.674 Pain in right toe(s)

== ENCOUNTER → 2022-11-11 | Outpatient (CLI) | payer MEDICARE, MEDICAID ==
[2022-11-11 15:50] LABS: APPEARANCE, URINE CLEAR (CLEAR); BACTERIA, URINE AUTO NEGATIVE (NEGATIVE); BILIRUBIN, URINE AUTO NEGATIVE (NEGATIVE); BLOOD, URINE BLOOD NEGATIVE (NEGATIVE); COLOR, URINE STRAW (YELLOW); GLUCOSE, URINE (UA) AUTO NEGATIVE (NEGATIVE); KETONE, URINE AUTO NEGATIVE (NEGATIVE); LEUKOCYTE ESTERASE, URINE AUTO TRACE (NEGATIVE); NITRITE, URINE AUTO NEGATIVE (NEGATIVE); PROTEIN, URINE AUTO NEGATIVE (NEGATIVE); RBC, URINE AUTO 0 /HPF (0-3); SPECIFIC GRAVITY URINE AUTO 1.003 (1.002-1.035); SQUAMOUS EPITHELIAL CELL UR AU 2 /HPF (0-6); UROBILINOGEN, URINE AUTO 0.2 mg/dL (0.0-2.0); WBC, URINE AUTO 0 /HPF (0-3)
[2022-11-11 15:56] LABS: BASO % 0.5 % (0.0-1.0); EOS # 0.1 10^3/uL (0.0-0.5); EOS % 1.5 % (0.0-3.0); HEMATOCRIT 39.7 % (36.0-47.0); HEMOGLOBIN 13.5 g/dl (12.0-15.5); LYMPH # 1.9 10^3/uL (1.5-5.0); LYMPH % 32.4 % (24.0-44.0); MEAN CORPUSCULAR HEMOGLOBIN 31.9 pg (27.0-33.0); MEAN CORPUSCULAR VOLUME 93.9 fl (80.0-96.0); MONO # 0.5 10^3/uL (0.0-0.8); MONO % 8.3 % (2.0-8.0); NEUTROPHILS # 3.4 10^3/uL (1.5-8.5); NEUTROPHILS % 57.1 % (36.0-66.0); PLATELET COUNT, AUTOMATED 258 10^3/uL (150-450); RED BLOOD COUNT 4.23 10^6/uL (4.00-5.40); WHITE BLOOD COUNT 5.9 10^3/uL (4.0-10.0)
[2022-11-11 16:20] LABS: C REACTIVE PROTEIN QUANTITATIV < 0.40 MG/DL (<1.0); CREATININE,RANDOM URINE 19.4 MG/DL
[2022-11-11 16:21] LABS: ALBUMIN 3.6 G/DL (3.2-5.2); ALKALINE PHOSPHATASE 59 U/L (46-116); ALT/SGPT 21 U/L (7.0-40); AST/SGOT 14 U/L (<34); BILIRUBIN,TOTAL 0.3 MG/DL (0.3-1.2); BLOOD UREA NITROGEN 10 MG/DL (9-23); CALCIUM LEVEL 8.6 MG/DL (8.5-10.1); CARBON DIOXIDE LEVEL 29 MMOL/L (20-31); CHLORIDE LEVEL 106 MMOL/L (98-107); COMPLEMENT C3 99.5 MG/DL (90.0-170.0); CREATININE FOR GFR 0.78 MG/DL (0.55-1.30); GLOMERULAR FILTRATION RATE > 60.0 (>58); GLUCOSE, FASTING 80 MG/DL (60-100); POTASSIUM SERUM 4.3 MMOL/L (3.5-5.1); SODIUM LEVEL 141 MMOL/L (136-145); TOTAL PROTEIN 6.2 G/DL (5.7-8.2)
[2022-11-11 16:22] LABS: COMPLEMENT C4 21.5 MG/DL (12-36); TOTAL PROTEIN,RANDOM URINE < 6.0 MG/DL (0.0-14.0)
[2022-11-11 17:08] LABS: ERYTHROCYTE SEDIMENTATION RATE 2 mm/hr (0-20)
== END ==
LOC: M PLALAB 11:50
PROVIDERS: ATTEND Internal Medicine Rheumatology
DX: M32.9 Systemic lupus erythematosus, unspecified (principal); I73.00 Raynaud's syndrome without gangrene; L65.9 Nonscarring hair loss, unspecified; M15.0 Primary generalized (osteo)arthritis; Z79.899 Other long term (current) drug therapy

== ENCOUNTER → 2022-11-29 | Outpatient (CLI) | payer MEDICARE, MEDICAID | LOC: M RAD 10:36 | PROVIDERS: ATTEND Student in an Organized Health Care Education/Training Program | DX: M19.071 Primary osteoarthritis, right ankle and foot (principal) ==

== ENCOUNTER 2022-12-17 17:31 | Emergency (ER) | payer MEDICAID, MEDICARE ==
[~2022-12-17] VITALS: Ht 157.5 cm; Wt 72.7 kg
[~2022-12-17 17:31] MED LIST changes: -NEOM10DR2 OT; -PRED20TA; -ROBI1LIQ9 PO
[2022-12-17] MEDS ORDERED: PRED20TA (18:00)
[2022-12-17] MEDS ORDERED: ROBI1LIQ9 PO (18:00)
[2022-12-17] MEDS ORDERED: NEOM10DR2 OT (18:41)
[2022-12-17 18:52] VITALS: BP 123/70; TEMP 98.7; O2SAT 97
== END 2022-12-17 19:08 | disposition home or self-care (01) ==
LOC: M ED 17:31
DX: S00.412A Abrasion of left ear, initial encounter (principal); I10 Essential (primary) hypertension; J45.909 Unspecified asthma, uncomplicated; K21.9 Gastro-esophageal reflux disease without esophagitis; K58.9 Irritable bowel syndrome, unspecified; Y92.9 Unspecified place or not applicable; Y93.9 Activity, unspecified; Y99.9 Unspecified external cause status; Z88.2 Allergy status to sulfonamides; Z88.1 Allergy status to other antibiotic agents; Z88.6 Allergy status to analgesic agent; Z91.040 Latex allergy status; Z79.52 Long term (current) use of systemic steroids; Z79.82 Long term (current) use of aspirin; Z79.899 Other long term (current) drug therapy; Z23 Encounter for immunization
CPT/HCPCS: 71046; 87070; 87077; 87186; 87205; 90686; 99283; G0008; G0463

== ENCOUNTER → 2022-12-17 | Outpatient (CLI) | payer MEDICARE, MEDICAID ==
[~2022-12-17] MED LIST changes: +NEOM10DR2 OT; +PRED20TA; +ROBI1LIQ9 PO
== END ==
LOC: M PLAIMG 10:46
PROVIDERS: ATTEND Student in an Organized Health Care Education/Training Program
DX: J20.9 Acute bronchitis, unspecified (principal)

== ENCOUNTER → 2022-12-23 | Outpatient (CLI) | payer MEDICARE, MEDICAID ==
[~2022-12-23] MED LIST changes: +NEOM10DR2 OT; +PRED20TA; +ROBI1LIQ9 PO
== END ==
LOC: M PLAIMG 08:32
PROVIDERS: ATTEND Internal Medicine Rheumatology
DX: M32.9 Systemic lupus erythematosus, unspecified (principal); I73.00 Raynaud's syndrome without gangrene; L65.9 Nonscarring hair loss, unspecified; M15.0 Primary generalized (osteo)arthritis; Z79.899 Other long term (current) drug therapy

== ENCOUNTER → 2023-06-04 | Outpatient (REF) | payer MEDICARE, MEDICAID ==
[~2023-06-04] MED LIST changes: +RISP-105 PO; -RISP-7 PO; -RISP-8 PO; +RISP0.5T82 PO
[2023-06-04 17:47] LABS: APPEARANCE, URINE CLEAR (CLEAR); BACTERIA, URINE AUTO NEGATIVE (NEGATIVE); BILIRUBIN, URINE AUTO NEGATIVE (NEGATIVE); BLOOD, URINE BLOOD NEGATIVE (NEGATIVE); COLOR, URINE STRAW (YELLOW); GLUCOSE, URINE (UA) AUTO NEGATIVE (NEGATIVE); KETONE, URINE AUTO NEGATIVE (NEGATIVE); LEUKOCYTE ESTERASE, URINE AUTO NEGATIVE (NEGATIVE); NITRITE, URINE AUTO NEGATIVE (NEGATIVE); PROTEIN, URINE AUTO NEGATIVE (NEGATIVE); RBC, URINE AUTO 0 /HPF (0-3); SPECIFIC GRAVITY URINE AUTO 1.002 (1.002-1.035); SQUAMOUS EPITHELIAL CELL UR AU 0 /HPF (0-6); UROBILINOGEN, URINE AUTO 0.2 mg/dL (0.0-2.0); WBC, URINE AUTO 0 /HPF (0-3)
[2023-06-04 18:15] LABS: CREATININE,RANDOM URINE 16.3 MG/DL; TOTAL PROTEIN,RANDOM URINE < 6.0 MG/DL (0.0-14.0)
[2023-06-04 19:02] LABS: BASO % 0.6 % (0.0-1.0); EOS # 0.2 10^3/uL (0.0-0.5); HEMATOCRIT 41.9 % (36.0-47.0); HEMOGLOBIN 13.7 g/dl (12.0-15.5); LYMPH # 2.6 10^3/uL (1.5-5.0); LYMPH % 48.5 % (24.0-44.0); MEAN CORPUSCULAR HEMOGLOBIN 29.8 pg (27.0-33.0); MEAN CORPUSCULAR HGB CONC 32.7 g/dl (32.0-36.5); MEAN CORPUSCULAR VOLUME 91.3 fl (80.0-96.0); MONO # 0.3 10^3/uL (0.0-0.8); MONO % 6.2 % (2.0-8.0); NEUTROPHILS # 2.2 10^3/uL (1.5-8.5); NEUTROPHILS % 41.5 % (36.0-66.0); PLATELET COUNT, AUTOMATED 256 10^3/uL (150-450); RED BLOOD COUNT 4.59 10^6/uL (4.00-5.40); WHITE BLOOD COUNT 5.3 10^3/uL (4.0-10.0)
[2023-06-04 19:25] LABS: ERYTHROCYTE SEDIMENTATION RATE 2 mm/hr (0-20)
[2023-06-04 19:33] LABS: C REACTIVE PROTEIN QUANTITATIV < 0.40 MG/DL (<1.0)
[2023-06-04 19:35] LABS: ALKALINE PHOSPHATASE 64 U/L (46-116); ALT/SGPT 18 U/L (7.0-40); AST/SGOT 20 U/L (<34); BILIRUBIN,TOTAL 0.3 MG/DL (0.3-1.2); BLOOD UREA NITROGEN 9 MG/DL (9-23); CALCIUM LEVEL 8.8 MG/DL (8.5-10.1); CARBON DIOXIDE LEVEL 31 MMOL/L (20-31); CHLORIDE LEVEL 106 MMOL/L (98-107); COMPLEMENT C3 108.2 MG/DL (90.0-170.0); CREATININE FOR GFR 0.76 MG/DL (0.55-1.30); GLOMERULAR FILTRATION RATE > 60.0 (>58); GLUCOSE, FASTING 78 MG/DL (60-100); POTASSIUM SERUM 3.9 MMOL/L (3.5-5.1); SODIUM LEVEL 142 MMOL/L (136-145); TOTAL PROTEIN 6.5 G/DL (5.7-8.2)
[2023-06-04 19:36] LABS: COMPLEMENT C4 18.4 MG/DL (12-36)
== END ==
LOC: M SFHCRHEU 11:38
PROVIDERS: ATTEND Internal Medicine Rheumatology
DX: M32.9 Systemic lupus erythematosus, unspecified (principal); I73.00 Raynaud's syndrome without gangrene; Z79.899 Other long term (current) drug therapy; L65.9 Nonscarring hair loss, unspecified; M15.0 Primary generalized (osteo)arthritis

== ENCOUNTER → 2023-06-11 | Outpatient (REF) | payer MEDICARE, MEDICAID | LOC: M SFHCRHEU 11:31 | PROVIDERS: ATTEND Internal Medicine Rheumatology | DX: M32.9 Systemic lupus erythematosus, unspecified (principal); I73.00 Raynaud's syndrome without gangrene; Z79.899 Other long term (current) drug therapy; L65.9 Nonscarring hair loss, unspecified; M15.0 Primary generalized (osteo)arthritis ==

== ENCOUNTER 2023-06-26 10:36 | Emergency (ER) | payer MEDICARE, MEDICAID ==
[~2023-06-26] VITALS: Ht 154.9 cm; Wt 75.2 kg
[2023-06-26 13:28] LABS: BASO % 0.3 % (0.0-1.0); EOS # 0.2 10^3/uL (0.0-0.5); EOS % 2.2 % (0.0-3.0); HEMATOCRIT 42.6 % (36.0-47.0); HEMOGLOBIN 14.4 g/dl (12.0-15.5); LYMPH # 1.8 10^3/uL (1.5-5.0); LYMPH % 26.1 % (24.0-44.0); MEAN CORPUSCULAR HEMOGLOBIN 30.7 pg (27.0-33.0); MEAN CORPUSCULAR HGB CONC 33.8 g/dl (32.0-36.5); MEAN CORPUSCULAR VOLUME 90.8 fl (80.0-96.0); MONO # 0.3 10^3/uL (0.0-0.8); MONO % 4.6 % (2.0-8.0); NEUTROPHILS # 4.5 10^3/uL (1.5-8.5); NEUTROPHILS % 66.7 % (36.0-66.0); PLATELET COUNT, AUTOMATED 266 10^3/uL (150-450); RED BLOOD COUNT 4.69 10^6/uL (4.00-5.40); WHITE BLOOD COUNT 6.8 10^3/uL (4.0-10.0)
[2023-06-26 13:48] LABS: ERYTHROCYTE SEDIMENTATION RATE 2 mm/hr (0-20)
[2023-06-26] MEDS ORDERED: ISOVUE-370 76% 100ML VIAL As Ordered ONE (13:48)
[2023-06-26] MEDS ORDERED: PRED20TA PO (14:53)
[2023-06-26 15:10] VITALS: BP 125/75; TEMP 96.1; O2SAT 98
== END 2023-06-26 15:12 | disposition home or self-care (01) ==
LOC: M ED 10:36
DX: M50.122 Cervical disc disorder at C5-C6 level with radiculopathy (principal); M50.121 Cervical disc disorder at C4-C5 level with radiculopathy; I10 Essential (primary) hypertension; M32.9 Systemic lupus erythematosus, unspecified; Z88.2 Allergy status to sulfonamides; Z88.1 Allergy status to other antibiotic agents; Z88.6 Allergy status to analgesic agent; Z91.040 Latex allergy status; Z79.899 Other long term (current) drug therapy
CPT/HCPCS: 36415; 70491; 72125; 80047; 85025; 85652; 86140; 99284; Q9967

== ENCOUNTER → 2023-07-27 | Outpatient (CLI) | payer MEDICARE, MEDICAID ==
[~2023-07-27] MED LIST changes: +BUPR-597; -BUPR300T92; +FLUO-290 PO; -FLUO10CA18 PO; -ROSU10TA6 PO; +ROSU10TA61 PO
== END ==
LOC: M WHC 10:41
PROVIDERS: ATTEND Nurse Practitioner Family
DX: Z12.31 Encounter for screening mammogram for malignant neoplasm of breast (principal); R92.323 Mammographic fibroglandular density, bilateral breasts

== ENCOUNTER → 2023-07-27 | Outpatient (REF) | payer MEDICARE, MEDICAID | LOC: M SFHCWAGY 13:23 | PROVIDERS: ATTEND Nurse Practitioner Family | DX: Z12.4 Encounter for screening for malignant neoplasm of cervix (principal) | CPT/HCPCS: 87624; G0123 ==

== ENCOUNTER → 2023-08-28 | Outpatient (REF) | payer MEDICARE, MEDICAID ==
[~2023-08-28] MED LIST changes: +FLUO-365 PO; -FLUO20CA22 PO
== END ==
LOC: M SFHCPLAZ 12:36
PROVIDERS: ATTEND Student in an Organized Health Care Education/Training Program
DX: R09.89 Other specified symptoms and signs involving the circulatory and respiratory systems (principal)

== ENCOUNTER → 2023-10-06 | Outpatient (REF) | payer MEDICARE, MEDICAID | LOC: M SFHCPLAZ 12:56 | PROVIDERS: ATTEND Physician Assistant Medical | DX: R30.0 Dysuria (principal) ==

== ENCOUNTER 2023-12-16 13:31 | Emergency (ER) | payer MEDICARE, MEDICAID ==
[~2023-12-16] VITALS: Ht 154.9 cm; Wt 74.6 kg
[2023-12-16 15:14] LABS: BASO % 0.4 % (0.0-1.0); EOS # 0.1 10^3/uL (0.0-0.5); EOS % 0.6 % (0.0-3.0); HEMATOCRIT 40.4 % (36.0-47.0); HEMOGLOBIN 13.6 g/dl (12.0-15.5); LYMPH # 2.8 10^3/uL (1.5-5.0); LYMPH % 35.9 % (24.0-44.0); MEAN CORPUSCULAR HEMOGLOBIN 31.1 pg (27.0-33.0); MEAN CORPUSCULAR HGB CONC 33.7 g/dl (32.0-36.5); MEAN CORPUSCULAR VOLUME 92.4 fl (80.0-96.0); MONO # 0.5 10^3/uL (0.0-0.8); MONO % 6.4 % (2.0-8.0); NEUTROPHILS # 4.4 10^3/uL (1.5-8.5); NEUTROPHILS % 56.4 % (36.0-66.0); PLATELET COUNT, AUTOMATED 252 10^3/uL (150-450); RED BLOOD COUNT 4.37 10^6/uL (4.00-5.40); WHITE BLOOD COUNT 7.8 10^3/uL (4.0-10.0)
[2023-12-16 15:44] LABS: LIPASE 31 U/L (12-53)
[2023-12-16 15:46] LABS: ALBUMIN 3.7 G/DL (3.2-5.2); ALKALINE PHOSPHATASE 52 U/L (46-116); ALT/SGPT 16 U/L (7.0-40); AST/SGOT 16 U/L (<34); BILIRUBIN,DIRECT 0.2 MG/DL (<0.4); BILIRUBIN,TOTAL 0.6 MG/DL (0.3-1.2); BLOOD UREA NITROGEN 5 MG/DL (9-23); CALCIUM LEVEL 9.7 MG/DL (8.5-10.1); CARBON DIOXIDE LEVEL 31 MMOL/L (20-31); CHLORIDE LEVEL 107 MMOL/L (98-107); CREATININE FOR GFR 0.74 MG/DL (0.55-1.30); GLOMERULAR FILTRATION RATE > 60.0 (>58); GLUCOSE, FASTING 78 MG/DL (60-100); POTASSIUM SERUM 3.9 MMOL/L (3.5-5.1); SODIUM LEVEL 141 MMOL/L (136-145); TOTAL PROTEIN 6.4 G/DL (5.7-8.2)
[2023-12-16] MEDS: ACETAMINOPHEN 500 MG TAB PO ONE (17:20)
[2023-12-16 17:24] LABS: HCG, SERUM QUALITATIVE NEGATIVE (NEGATIVE)
[2023-12-16] MEDS ORDERED: ISOVUE-370 76% 100ML VIAL As Ordered ONE (17:49)
[2023-12-16] MEDS ORDERED: CIPR-249 PO (20:06)
[2023-12-16] MEDS ORDERED: MIRA3350 PO (20:06)
[2023-12-16] MEDS: CIPROFLOXACIN 500MG TABLET PO ONE (20:19)
[2023-12-16 20:27] VITALS: BP 108/56; TEMP 97; O2SAT 97
== END 2023-12-16 20:31 | disposition home or self-care (01) ==
LOC: M ED 13:31
DX: N39.0 Urinary tract infection, site not specified (principal); K59.00 Constipation, unspecified; N83.01 Follicular cyst of right ovary; N83.02 Follicular cyst of left ovary; M32.9 Systemic lupus erythematosus, unspecified; L51.1 Stevens-Johnson syndrome; K58.9 Irritable bowel syndrome, unspecified; F41.9 Anxiety disorder, unspecified; K21.9 Gastro-esophageal reflux disease without esophagitis; J45.909 Unspecified asthma, uncomplicated; I10 Essential (primary) hypertension; Z88.1 Allergy status to other antibiotic agents; Z88.2 Allergy status to sulfonamides; Z88.6 Allergy status to analgesic agent; Z91.040 Latex allergy status; Z79.52 Long term (current) use of systemic steroids; Z79.82 Long term (current) use of aspirin; Z79.2 Long term (current) use of antibiotics; Z79.899 Other long term (current) drug therapy
CPT/HCPCS: 36415; 74177; 80048; 80076; 81001; 83690; 84703; 85025; 87086; 99284; Q9967

== ENCOUNTER → 2024-01-13 | Outpatient (REF) | payer MEDICARE, MEDICAID ==
[2024-01-13 12:51] LABS: APPEARANCE, URINE CLEAR (CLEAR); BACTERIA, URINE AUTO NEGATIVE (NEGATIVE); BILIRUBIN, URINE AUTO NEGATIVE (NEGATIVE); BLOOD, URINE BLOOD NEGATIVE (NEGATIVE); COLOR, URINE COLORLESS (YELLOW); GLUCOSE, URINE (UA) AUTO NEGATIVE (NEGATIVE); KETONE, URINE AUTO NEGATIVE (NEGATIVE); LEUKOCYTE ESTERASE, URINE AUTO NEGATIVE (NEGATIVE); NITRITE, URINE AUTO NEGATIVE (NEGATIVE); PROTEIN, URINE AUTO NEGATIVE (NEGATIVE); RBC, URINE AUTO 0 /HPF (0-3); SPECIFIC GRAVITY URINE AUTO 1.002 (1.002-1.035); SQUAMOUS EPITHELIAL CELL UR AU 1 /HPF (0-6); UROBILINOGEN, URINE AUTO 0.2 mg/dL (0.0-2.0); WBC, URINE AUTO 1 /HPF (0-3)
[2024-01-13 13:06] LABS: BASO % 0.8 % (0.0-1.0); EOS # 0.1 10^3/uL (0.0-0.5); EOS % 2.3 % (0.0-3.0); HEMATOCRIT 40.6 % (36.0-47.0); HEMOGLOBIN 13.7 g/dl (12.0-15.5); LYMPH # 2.1 10^3/uL (1.5-5.0); MEAN CORPUSCULAR HEMOGLOBIN 30.8 pg (27.0-33.0); MEAN CORPUSCULAR HGB CONC 33.7 g/dl (32.0-36.5); MEAN CORPUSCULAR VOLUME 91.2 fl (80.0-96.0); MONO # 0.4 10^3/uL (0.0-0.8); MONO % 8.7 % (2.0-8.0); NEUTROPHILS % 43.2 % (36.0-66.0); PLATELET COUNT, AUTOMATED 293 10^3/uL (150-450); RED BLOOD COUNT 4.45 10^6/uL (4.00-5.40); WHITE BLOOD COUNT 4.7 10^3/uL (4.0-10.0)
[2024-01-13 13:11] LABS: C REACTIVE PROTEIN QUANTITATIV < 0.40 MG/DL (<1.0)
[2024-01-13 13:12] LABS: ALBUMIN 3.7 G/DL (3.2-5.2); ALKALINE PHOSPHATASE 58 U/L (35-104); ALT/SGPT 17 U/L (7.0-40); AST/SGOT 15 U/L (<34); BILIRUBIN,TOTAL 0.5 MG/DL (0.3-1.2); BLOOD UREA NITROGEN 11 MG/DL (9-23); CALCIUM LEVEL 9.5 MG/DL (8.5-10.1); CARBON DIOXIDE LEVEL 31 MMOL/L (20-31); CHLORIDE LEVEL 103 MMOL/L (98-107); COMPLEMENT C3 101.1 MG/DL (90.0-170.0); COMPLEMENT C4 21.2 MG/DL (12-36); CREATININE FOR GFR 0.77 MG/DL (0.55-1.30); GLOMERULAR FILTRATION RATE > 60.0 (>58); GLUCOSE, FASTING 81 MG/DL (60-100); POTASSIUM SERUM 4.2 MMOL/L (3.5-5.1); SODIUM LEVEL 139 MMOL/L (136-145); TOTAL PROTEIN 6.7 G/DL (5.7-8.2)
[2024-01-13 13:17] LABS: CREATININE,RANDOM URINE < 13.0 MG/DL
[2024-01-13 13:20] LABS: ERYTHROCYTE SEDIMENTATION RATE < 1 mm/hr (0-20)
[2024-01-13 13:21] LABS: TOTAL PROTEIN,RANDOM URINE < 6.0 MG/DL (0.0-14.0)
[2024-01-17 21:45] LABS: COMPLEMENT TOTAL (CH50) 57 U/mL (31-60)
[2024-01-21 03:47] LABS: ANTI DS-DNA AB NEGATIVE (NEGATIVE)
== END ==
LOC: M SFHCRHEU 09:40
PROVIDERS: ATTEND Internal Medicine Rheumatology
DX: M32.9 Systemic lupus erythematosus, unspecified (principal); I73.00 Raynaud's syndrome without gangrene; Z79.899 Other long term (current) drug therapy; L65.9 Nonscarring hair loss, unspecified; M15.0 Primary generalized (osteo)arthritis

== ENCOUNTER → 2024-01-14 | Outpatient (REF) | payer MEDICARE, MEDICAID | LOC: M SFHCPLAZ 19:20 | PROVIDERS: ATTEND Family Medicine | DX: I10 Essential (primary) hypertension (principal); Z53.9 Procedure and treatment not carried out, unspecified reason ==

== ENCOUNTER → 2024-01-19 | Outpatient (CLI) | payer MEDICARE, MEDICAID ==
[2024-01-19 13:27] LABS: CHOLESTEROL RISK RATIO 2.37 (<5); HDL CHOLESTEROL 82.2 MG/DL (>40); LDL CHOLESTEROL 100.8 MG/DL (<100); NON-HDL-C 112.8 MG/DL
[2024-01-19 13:54] LABS: HEMOGLOBIN A1c 4.9 % (4.0-6.0)
== END ==
LOC: M PLALAB 08:30
DX: I10 Essential (primary) hypertension (principal)

== ENCOUNTER 2024-03-07 18:51 | Emergency (ER) | payer MEDICARE, MEDICAID ==
[~2024-03-07] VITALS: Ht 157.5 cm; Wt 74.2 kg
[2024-03-07 19:42] LABS: VENOUS BASE EXCESS 1.4 (-2.0-2.0); VENOUS HCO3 28.7 MMOL/L (23.0-27.0); VENOUS O2 SATURATION 73.2 % (60.0-80.0); VENOUS PARTIAL PRESSURE CO2 56.3 mmHg (38.0-50.0); VENOUS PARTIAL PRESSURE O2 42.1 mmHg (30.0-50.0); VENOUS PH 7.325 UNITS (7.330-7.430); VENOUS STANDARD HCO3 25.1 MMOL/L; VENOUS TOTAL CO2 30.4 MMOL/L (24.0-28.0)
[2024-03-07 19:50] LABS: BASO % 0.5 % (0.0-1.0); EOS # 0.2 10^3/uL (0.0-0.5); EOS % 3.4 % (0.0-3.0); HEMATOCRIT 40.5 % (36.0-47.0); HEMOGLOBIN 13.5 g/dl (12.0-15.5); LYMPH # 2.2 10^3/uL (1.5-5.0); LYMPH % 37.6 % (24.0-44.0); MEAN CORPUSCULAR HEMOGLOBIN 30.3 pg (27.0-33.0); MEAN CORPUSCULAR HGB CONC 33.3 g/dl (32.0-36.5); MEAN CORPUSCULAR VOLUME 90.8 fl (80.0-96.0); MONO # 0.7 10^3/uL (0.0-0.8); MONO % 11.8 % (2.0-8.0); NEUTROPHILS # 2.7 10^3/uL (1.5-8.5); NEUTROPHILS % 46.5 % (36.0-66.0); PLATELET COUNT, AUTOMATED 240 10^3/uL (150-450); RED BLOOD COUNT 4.46 10^6/uL (4.00-5.40); WHITE BLOOD COUNT 5.8 10^3/uL (4.0-10.0)
[2024-03-07 20:16] LABS: CK-MB VALUE MASS < 1.0 NG/ML (<3.6)
[2024-03-07 20:18] LABS: ALBUMIN 3.8 G/DL (3.2-5.2); ALKALINE PHOSPHATASE 69 U/L (35-104); ALT/SGPT 17 U/L (7.0-40); AST/SGOT 18 U/L (<34); BILIRUBIN,DIRECT < 0.1 MG/DL (<0.4); BILIRUBIN,TOTAL 0.2 MG/DL (0.3-1.2); BLOOD UREA NITROGEN 8 MG/DL (9-23); CALCIUM LEVEL 9.3 MG/DL (8.5-10.1); CARBON DIOXIDE LEVEL 31 MMOL/L (20-31); CHLORIDE LEVEL 104 MMOL/L (98-107); CPK CREATINE PHOSPHOKINASE 145 U/L (34-145); CREATININE FOR GFR 0.85 MG/DL (0.55-1.30); GLOMERULAR FILTRATION RATE > 60.0 (>58); GLUCOSE, FASTING 72 MG/DL (60-100); MB/CK RELATIVE INDEX 0.68 (< OR =4); POTASSIUM SERUM 3.6 MMOL/L (3.5-5.1); SODIUM LEVEL 143 MMOL/L (136-145); TOTAL PROTEIN 6.7 G/DL (5.7-8.2)
[2024-03-07 20:19] LABS: THYROXINE (T4) 4.5 UG/DL (4.5-10.9)
[2024-03-07 20:20] LABS: THYROID STIMULATING HORMONE 1.921 uIU/ML (0.55-4.78)
[2024-03-08] MEDS ORDERED: ISOVUE-370 76% 100ML VIAL As Ordered ONE (00:43)
[2024-03-08] MEDS: ACETAMINOPHEN *IV* 1,000 MG in IV 1 EA IV ONE (00:57)
[2024-03-08] MEDS ORDERED: PRED20TA PO (02:30)
[2024-03-08] MEDS: predniSONE 20 MG TAB PO ONE (02:49)
[2024-03-08 02:51] VITALS: BP 106/60; TEMP 97.5; O2SAT 96
== END 2024-03-08 03:00 | disposition home or self-care (01) ==
LOC: M ED 18:51
DX: R07.89 Other chest pain (principal); R94.31 Abnormal electrocardiogram [ECG] [EKG]; I10 Essential (primary) hypertension; J45.909 Unspecified asthma, uncomplicated; M32.9 Systemic lupus erythematosus, unspecified; Z79.51 Long term (current) use of inhaled steroids; Z79.1 Long term (current) use of non-steroidal anti-inflammatories (NSAID); Z79.2 Long term (current) use of antibiotics; Z79.52 Long term (current) use of systemic steroids; Z79.899 Other long term (current) drug therapy; Z88.2 Allergy status to sulfonamides; Z88.1 Allergy status to other antibiotic agents; Z88.8 Allergy status to other drugs, medicaments and biological substances; Z91.040 Latex allergy status
CPT/HCPCS: 71045; 71275; 80048; 80076; 82550; 82553; 82803; 83605; 83880; 84436; 84443; 84484; 85025; 87040; 93005; 93041; 94760; 96374; 99285; J0131; J7512; Q9967

== ENCOUNTER 2024-05-03 10:41 | Emergency (ER) | payer MEDICAID, MEDICARE ==
[~2024-05-03] VITALS: Ht 157.5 cm; Wt 79.6 kg
[2024-05-03 12:04] LABS: BASO % 0.7 % (0.0-1.0); EOS # 0.1 10^3/uL (0.0-0.5); EOS % 2.2 % (0.0-3.0); HEMATOCRIT 40.5 % (36.0-47.0); HEMOGLOBIN 13.7 g/dl (12.0-15.5); LYMPH # 1.9 10^3/uL (1.5-5.0); LYMPH % 34.8 % (24.0-44.0); MEAN CORPUSCULAR HEMOGLOBIN 30.4 pg (27.0-33.0); MEAN CORPUSCULAR HGB CONC 33.8 g/dl (32.0-36.5); MONO # 0.5 10^3/uL (0.0-0.8); MONO % 8.9 % (2.0-8.0); NEUTROPHILS # 2.8 10^3/uL (1.5-8.5); PLATELET COUNT, AUTOMATED 225 10^3/uL (150-450); WHITE BLOOD COUNT 5.4 10^3/uL (4.0-10.0)
[2024-05-03 12:14] LABS: INR 0.92; PROTHROMBIN TIME 12.7 SECONDS (12.5-14.5)
[2024-05-03 12:26] LABS: CK-MB VALUE MASS 2.2 NG/ML (<3.6); LIPASE 47 U/L (12-53)
[2024-05-03 12:28] LABS: ALBUMIN 3.8 G/DL (3.2-5.2); ALKALINE PHOSPHATASE 57 U/L (35-104); ALT/SGPT 28 U/L (7.0-40); AST/SGOT 23 U/L (<34); BILIRUBIN,DIRECT 0.1 MG/DL (<0.4); BILIRUBIN,TOTAL 0.4 MG/DL (0.3-1.2); CPK CREATINE PHOSPHOKINASE 162 U/L (34-145); MB/CK RELATIVE INDEX 1.35 (< OR =4); TOTAL PROTEIN 6.7 G/DL (5.7-8.2)
[2024-05-03] MEDS ORDERED: ISOVUE-370 76% 100ML VIAL As Ordered ONE (13:08)
[2024-05-03] MEDS: LIDOCAINE 5% (LIDODERM) PATCH TD ONE (14:31)
[2024-05-03] MEDS: methylPREDNISolone 125MG 2ML VIAL IV ONE (14:31)
[2024-05-03] MEDS: ACETAMINOPHEN 325 MG TAB PO ONE (14:31)
[2024-05-03] MEDS: diazePAM 5MG TABLET PO ONE (17:09)
[2024-05-03] MEDS ORDERED: PRED10TA2 PO (19:39)
[2024-05-03] MEDS ORDERED: LIDO1PAD TOP (19:39)
[2024-05-03 19:45] VITALS: BP 111/65; TEMP 97.9; O2SAT 96
== END 2024-05-03 20:00 | disposition home or self-care (01) ==
LOC: M ED 10:41
DX: R91.1 Solitary pulmonary nodule (principal); M54.12 Radiculopathy, cervical region; I45.81 Long QT syndrome; I10 Essential (primary) hypertension; K58.9 Irritable bowel syndrome, unspecified; M32.9 Systemic lupus erythematosus, unspecified; J45.909 Unspecified asthma, uncomplicated; F41.9 Anxiety disorder, unspecified; F32.9 Major depressive disorder, single episode, unspecified; Z88.2 Allergy status to sulfonamides; Z88.1 Allergy status to other antibiotic agents; Z88.6 Allergy status to analgesic agent; Z91.040 Latex allergy status; Z79.52 Long term (current) use of systemic steroids; Z79.899 Other long term (current) drug therapy; Z79.82 Long term (current) use of aspirin
CPT/HCPCS: 70450; 70544; 70547; 70551; 71045; 71275; 80047; 80076; 82550; 82553; 83690; 84484; 85025; 85610; 93005; 93041; 94760; 96374; 99285; J2919; Q9967

== ENCOUNTER → 2024-11-15 | Outpatient (REF) | payer MEDICARE ==
[~2024-11-15] MED LIST changes: -BUPR-597; +BUPR-766; +DIVA-41 PO; -DIVA500T94 PO; +LIDO1PAD TOP; +PRED10TA2 PO
== END ==
LOC: M SFHCPLAZ 16:39
PROVIDERS: ATTEND Family Medicine
DX: Z53.9 Procedure and treatment not carried out, unspecified reason (principal)

== ENCOUNTER → 2024-11-24 | Outpatient (CLI) | payer MEDICARE | LOC: M WHC 13:50 | PROVIDERS: ATTEND Nurse Practitioner Family | DX: Z12.31 Encounter for screening mammogram for malignant neoplasm of breast (principal); R92.323 Mammographic fibroglandular density, bilateral breasts ==

== ENCOUNTER → 2024-11-24 | Outpatient (CLI) | payer MEDICARE ==
[2024-11-24 18:44] LABS: HIV 1&2 SCREEN NEGATIVE (NEGATIVE)
[2024-11-24 18:53] LABS: HEPATITIS C VIRUS ABY INDEX < 0.02 INDEX (<0.8)
[2024-11-24 22:47] LABS: GC DNA AMPLIFICATION NEGATIVE (NEGATIVE)
== END ==
LOC: M PLALAB 15:21
PROVIDERS: ATTEND Nurse Practitioner Family
DX: Z11.3 Encounter for screening for infections with a predominantly sexual mode of transmission (principal); Z72.89 Other problems related to lifestyle; Z11.59 Encounter for screening for other viral diseases